=== PATIENT | female | born 1965 | race Caucasian/White ===

== ENCOUNTER 2020-09-23 14:00 | Outpatient (REF) | payer OTHER, SELFPAY ==
[2020-09-23 14:09] LABS: Glucose Urine UA NEG (NEG); Leukocyte Esterase Urine 3+ (NEG); Nitrite Urine POS (NEG); PH 6.5 (5.0-8.0); Specific Gravity - Urine <= 1.005 (1.005-1.025); UACC Culture Trigger YES; Urine Blood TRACE (NEG); Urine Ketones NEG (NEG); Urine Protein NEG (NEG-TRACE)
[2020-09-23 14:21] LABS: Appearance Urine HAZY; Color Urine YELLOW
[2020-09-23 14:22] LABS: Bacteria Urine 1+ /LPF; RBC Urine 0-2 /HPF (0); Squamous Epithelial Cell Urine TRACE /LPF; UACC CULT YES; WBC Urine 30-49 /HPF (0-4)
== END 2020-09-23 14:01 | disposition home or self-care (01) ==
LOC: HO.LNP 14:00
PROVIDERS: Visit Provider Family Medicine
DX: N39.0 Urinary tract infection, site not specified (principal)
CPT/HCPCS: 81001; 87086; 87088; 87186

== ENCOUNTER 2021-04-25 07:00 | Outpatient (REF) | payer OTHER, SELFPAY ==
[2021-04-25 07:24] LABS: MANUAL DIFF FLAG NO
[2021-04-25 08:08] LABS: Basophils Absolute Auto 0.1 X10*3/uL (0.0-0.2); Basophils Percent Auto 0.9 % (0-2); Eosinophils Absolute Auto 0.1 X10*3/uL (0.0-0.4); Eosinophils Percent Auto 1.4 % (0-4); Hematocrit 36.8 % (37.0-47.0); Hemoglobin 12.7 g/dl (12.0-16.0); Imm Gran Abs Auto 0.02 X10*3/uL (0.00-0.03); Imm Gran Pct Auto 0.4 % (0.0-0.4); Lymphocytes Absolute Auto 1.8 X10*3/uL (1.2-4.9); Lymphocytes Percent Auto 32.3 % (20-40); Mean Corpuscular HGB Conc 34.5 g/dl (31.0-35.0); Mean Corpuscular Hemoglobin 31.1 pg (27.0-33.0); Mean Corpuscular Volume 90.2 fL (80.0-98.0); Mean Platelet Volume 9.4 fL (9.4-12.3); Monocytes Absolute Auto 0.5 X10*3/uL (0.1-1.2); Monocytes Percent Auto 9.2 % (2-11); Neutrophils Absolute Auto 3.1 x10*3/uL (2.0-8.3); Neutrophils Percent Auto 55.8 % (45-73); Platelet Count 315 X10*3/uL (160-400); Red Blood Count 4.08 X10*6/uL (4.20-5.50); Red Cell Distribution Width 11.9 % (11.0-16.0); White Blood Count 5.6 X10*3/uL (4.8-10.8)
[2021-04-25 08:37] LABS: Alanine Aminotransferase 37 U/L (0-31); Albumin Level 4.2 g/dL (3.5-5.0); Alkaline Phosphatase 114 U/L (39-117); Anion Gap 11 (12-20); Aspartate Amino Transferase 49 U/L (5-31); Bilirubin Total 0.6 mg/dL (0.0-1.0); Blood Urea Nitrogen 5 mg/dL (9-16); C Reactive Protein 0.57 mg/dL (< or = 0.50); Calcium 9.8 mg/dL (8.4-10.2); Carbon Dioxide 28 mmol/L (22-29); Chloride 98 mmol/L (96-108); Cholesterol 188 mg/dL; Estimated Glomerular Filt Rate > 60; Glucose Fasting 106 mg/dL (60-99); HDL Cholesterol 59 mg/dL; LDL Cholesterol Calculated 108 mg/dl; Potassium 4.2 mmol/L (3.3-5.1); Sodium 133 mmol/L (135-145); Triglycerides 106 mg/dL
[2021-04-25 08:39] LABS: Appearance Urine CLOUDY; Color Urine YELLOW; Glucose Urine UA NEG (NEG); Leukocyte Esterase Urine 1+ (NEG); Nitrite Urine NEG (NEG); UACC Culture Trigger YES; Urine Blood NEG (NEG); Urine Ketones 5 MG/DL (NEG); Urine Protein TRACE MG/DL (NEG-TRACE)
[2021-04-25 08:50] LABS: Erythrocyte Sedimentation Rate 20 MM/HR (0-20)
[2021-04-25 08:56] LABS: Bacteria Urine 2+ /LPF; Mucus Urine TRACE /LPF; RBC Urine 0 /HPF (0); Squamous Epithelial Cell Urine 2+ /LPF
[2021-04-25 09:29] LABS: TSH reflex Free T4 3.41 uIU/mL (0.32-4.0)
== END 2021-04-25 07:01 | disposition home or self-care (01) ==
LOC: HO.LAB 07:00
PROVIDERS: PCP Internal Medicine; Visit Provider Internal Medicine
DX: I10 Essential (primary) hypertension (principal); E55.9 Vitamin D deficiency, unspecified; M25.50 Pain in unspecified joint; E78.00 Pure hypercholesterolemia, unspecified; G43.909 Migraine, unspecified, not intractable, without status migrainosus; J44.9 Chronic obstructive pulmonary disease, unspecified
CPT/HCPCS: 36415; 80053; 80061; 81001; 82306; 84443; 85025; 85652; 86140; 87086

== ENCOUNTER 2021-05-29 15:08 | Outpatient (REF) | payer OTHER, SELFPAY ==
--- NOTE | ~2021-05-29 | MM_ITS ---
EXAMINATION: MM SCREENING DIGITAL BREAST TOMOSYNTHESIS, BILATERAL CLINICAL INFORMATION: Screening. Asymptomatic. The lifetime risk of breast cancer based on the Tyrer-Cuzick Model is 5%. COMPARISON: Mammography: 05/21/2016, 11/24/2013 TECHNIQUE: Digital breast tomosynthesis is performed in both the craniocaudal and mediolateral oblique views along with computer-aided detection (CAD). Synthesized 2D images are generated from the tomosynthesis. FINDINGS: There are scattered areas of fibroglandular density (ACR BI-RADS breast composition Category b). There are no significant masses, abnormal calcifications, or other abnormalities. No architectural abnormality. No significant changes from prior exams. MM/MM tomosynthesis screening BI IMPRESSION: No mammographic evidence of malignancy. ASSESSMENT: BI-RADS 1: Negative RECOMMENDATION: Routine annual mammography screening. This patient's information was entered into a reminder system with a target due date for their next mammogram.
== END 2021-05-29 15:09 | disposition home or self-care (01) ==
LOC: HO.MAMMO 15:08
PROVIDERS: PCP Internal Medicine; Visit Provider Internal Medicine
DX: Z12.31 Encounter for screening mammogram for malignant neoplasm of breast (principal)
CPT/HCPCS: 77063; 77067

== ENCOUNTER 2022-10-18 14:09 | Outpatient (REF) | payer OTHER, MEDICAID, SELFPAY ==
[2022-10-18 14:22] LABS: MANUAL DIFF FLAG NO
[2022-10-18 14:53] LABS: Appearance Urine Clear; Color Urine Yellow; Glucose Urine UA Negative (Negative); Leukocyte Esterase Urine Trace (Negative); Nitrite Urine Negative (Negative); PH 6.5 (5.0-9.0); Specific Gravity - Urine 1.015 (1.005-1.025); UMIC TRIGGER UACC YES; Urine Blood Negative (Negative); Urine Ketones Negative (Negative); Urine Protein Negative (Neg-Trace)
[2022-10-18 14:56] LABS: Bacteria Urine None Seen (None Seen); Hyaline Casts Urine 0-2 /LPF (0-2); RBC Urine 0-2 /HPF (0-2); WBC Urine 0-5 /HPF (0-5)
[2022-10-18 15:07] LABS: Basophils Absolute Auto 0.1 X10*3/uL (0.0-0.2); Basophils Percent Auto 1.4 % (0-2); Eosinophils Absolute Auto 0.2 X10*3/uL (0.0-0.4); Eosinophils Percent Auto 2.9 % (0-4); Hematocrit 39.1 % (37.0-47.0); Hemoglobin 13.2 g/dl (12.0-16.0); Imm Gran Abs Auto 0.01 X10*3/uL (0.00-0.03); Imm Gran Pct Auto 0.2 % (0.0-0.4); Lymphocytes Absolute Auto 1.9 X10*3/uL (1.2-4.9); Lymphocytes Percent Auto 28.2 % (20-40); Mean Corpuscular HGB Conc 33.8 g/dl (31.0-35.0); Mean Corpuscular Hemoglobin 30.8 pg (27.0-33.0); Mean Corpuscular Volume 91.4 fL (80.0-98.0); Mean Platelet Volume 9.2 fL (9.4-12.3); Monocytes Absolute Auto 0.6 X10*3/uL (0.1-1.2); Monocytes Percent Auto 9.5 % (2-11); Neutrophils Absolute Auto 3.8 x10*3/uL (2.0-8.3); Neutrophils Percent Auto 57.8 % (45-73); Platelet Count 364 X10*3/uL (160-400); Red Blood Count 4.28 X10*6/uL (4.20-5.50); Red Cell Distribution Width 11.9 % (11.0-16.0); White Blood Count 6.6 X10*3/uL (4.8-10.8)
[2022-10-18 15:46] LABS: Alanine Aminotransferase 34 U/L (0-31); Albumin Level 4.3 g/dL (3.5-5.0); Alkaline Phosphatase 87 U/L (39-117); Anion Gap 13 (12-20); Aspartate Amino Transferase 35 U/L (5-31); Bilirubin Total 0.3 mg/dL (0.0-1.0); Blood Urea Nitrogen 7 mg/dL (9-16); Calcium 9.8 mg/dL (8.4-10.2); Carbon Dioxide 27 mmol/L (22-29); Chloride 98 mmol/L (96-108); Cholesterol 159 mg/dL; Estimated Glomerular Filt Rate > 60; Glucose Fasting 95 mg/dL (60-99); HDL Cholesterol 79 mg/dL; LDL Cholesterol Calculated 62 mg/dl; Potassium 3.9 mmol/L (3.3-5.1); Sodium 134 mmol/L (135-145); Total Protein 7.4 g/dL (6.5-8.0); Triglycerides 90 mg/dL
[2022-10-18 16:01] LABS: TSH reflex Free T4 4.77 uIU/mL (0.32-4.0)
[2022-10-18 16:54] LABS: Free T4 (Free Thyroxine) 0.74 ng/dL (0.71-1.85)
== END 2022-10-18 14:10 | disposition home or self-care (01) ==
LOC: HO.LAB 14:09
PROVIDERS: PCP Internal Medicine; Visit Provider Internal Medicine
DX: E78.00 Pure hypercholesterolemia, unspecified (principal); I10 Essential (primary) hypertension; E55.9 Vitamin D deficiency, unspecified; R30.0 Dysuria
CPT/HCPCS: 36415; 80053; 80061; 81001; 82306; 84439; 84443; 85025

== ENCOUNTER 2022-10-22 16:15 | Outpatient (AMB) | payer OTHER, MEDICAID, SELFPAY ==
[2022-10-22 16:19] VITALS: BP 116/80; PULSE 65; O2SAT 98; BMI 24.4
--- NOTE | 2022-10-22 16:19 | A.OFFPC_ITS ---
Vital Signs 10/22/22 16:19 Height 5 ft 2 in Weight 133 lb 8 oz BMI 24.4 BP 116/80 Blood Pressure Location Lt brachial Position Sitting Pulse 65 Pulse Source Pulse Oximeter Pulse Oximetry (%) 98 Oxygen Delivery Method Room Air Intake Visit Reasons: annual PE Parts Facilitator Required: No Accompanied by: Self / Same As Patient Allergies SANGITA Inhibitors [SANGITA INHIBITORS] Allergy (Unknown, Verified 10/22/22 16:47) COUGH Ceftin Allergy (Unknown, Verified 10/22/22 16:47) unknown Sulfa (Sulfonamide Antibiotics) Allergy (Unknown, Verified 10/22/22 16:47) rash atorvastatin [Lipitor] Adverse Reaction (Unknown, Verified 10/22/22 16:47) elevated liver enzymes Medication List - Last Reconciled 10/22/22 by Zeb Colorado MD albuterol sulfate 90 mcg/actuation 2 puffs inhalation Q6H PRN amlodipine 2.5 mg PO DAILY bhcyuojyff-pgllacbnedjog-xezz 50-325-40 mg 1 tab PO .2-3 TIMES A DAY PRN 30 days cetirizine 10 mg PO DAILY fluticasone furoate-vilanterol 100-25 mcg/dose 1 inh inhalation DAILY hydrochlorothiazide 12.5 mg PO DAILY 90 days losartan 100 mg PO DAILY 90 days montelukast 10 mg PO DAILY nadolol 20 mg PO BEDTIME 90 days nitrofurantoin macrocrystal 100 mg PO Q12H 5 days omeprazole 40 mg PO DAILY pregabalin 75 mg PO BID rosuvastatin 5 mg PO DAILY 90 days sumatriptan succinate 50 mg PO Q2-4H PRN 30 days trazodone 50 mg PO BEDTIME PRN 30 days umeclidinium 62.5 mcg/actuation 1 inh PO DAILY venlafaxine ER 75 mg PO DAILY 90 days Tobacco use date assessed: 10/22/22 Dental Screening Dental Screen Date: 10/22/22 Did you have a dental visit in the last 12 months?: No Did you have a dental problem in the last 6 months where you did not have access to dental care?: No Was dental information given to patient?: Patient has dentist HPI annual PE HPI Details Patient comes in today for her annual physical examination - was last seen by me almost 3 years ago in January 2020 States that she has been experiencing increasingly frequent headaches (migraine) for the past couple of months and would like to get a referral to see neurology for her headaches States that she feels okay otherwise She denies any dizziness Denies any chest pains, no shortness of breath No nausea/ vomiting, no abdominal pain No change in bowel habits noted Denies any acute urinary symptoms Had her follow-up labs done a few days ago - to discuss her results Patient's colonoscopy was last done at [facility] back in 2014; was due for repeat colonoscopy in 5 years (2019) Her mammogram was last done on 05/29/2021 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 Harrell - (+) ASCUS on her pap smear back then Has never had a BMD done in the past [facility] Medical History (Updated 10/23/22 @ 05:38 by Zeb Colorado MD) Allergic rhinitis Walker's esophagus without dysplasia Benign essential hypertension COPD (chronic obstructive pulmonary disease) Depression GERD without esophagitis Insomnia Migraine Overweight (BMI 25.0-29.9) Polyarthralgia Pure hypercholesterolemia Surgical History H/O tubal ligation Hx of dilation and curettage Family History Mother Hypertension Esophageal cancer Maternal Grandfather No problems noted. Father No problems noted. Other Mental health problem Substance abuse Social History (Updated 10/23/22 @ 05:13 by Zeb Colorado MD) Housing: House Alcohol intake: current Alcohol intake frequency: 0-2 drinks per day Alcohol type: wine Patient Tobacco Use Status: Former Tobacco user e-Cigarette/Vaping Use: Never Used Second Hand Smoke Exposure: Yes service: No Current occupational status: unemployed Cognitive needs: No Hearing needs: No Vision needs: No Questionnaire PHQ-9 Over the last 2 weeks, how often have you been bothered by any of the following problems? 1. Little interest or pleasure in doing things: not at all 2. Feeling down, depressed, or hopeless: not at all 3. Trouble falling or staying asleep, or sleeping too much: not at all 4. Feeling tired or having little energy: not at all 5. Poor appetite or overeating: not at all 6. Feeling bad about yourself - or that you are a failure or have let yourself or your family down: not at all 7. Trouble concentrating on things, such as reading the newspaper or watching television: not at all 8. Moving or speaking so slowly that other people could have noticed. Or the opposite - being so fidgety or restless that you have been moving around a lot more than usual: not at all 9. Thoughts that you would be better off or of hurting yourself in some way: not at all Total score: 0 Depression Screening Interpretation: Negative 54625 - PHQ-9 Billing: Yes Source: Developed by Drs. Santos Florentino, Tammy Santos, Jigar Giraldo and colleagues, with an educational chacho from [employer]. Thrive Questionnaire Date Thrive assessed: 10/22/22 I am a: Patient What is your living situation today?: I have a steady place to live Within the past 12 months, did the food you bought not last and you didn't have the money to get more?: Never true Within the past 12 months, did you worry whether your food would run out before you got money to buy more?: Never true Do you have trouble paying for medicines?: No Do you have trouble getting transportation to medical appointments?: No Do you have trouble paying your heating and electricity bill?: No Do you have trouble taking care of your child, family member or friend?: No Do you have trouble with day-to-day activities such as bathing, preparing meals, shopping, managing finances, etc.?: No Are you currently unemployed and looking for a job?: No Are you interested in more education?: No Please select the resources that you would like help with: None Currently or been in a relationship where the following occur: no concerns reported AUDIT C Alcohol Use Questionnaire (AUDIT-C) 1. How often do you have a drink containing alcohol?: 4 or more times a week 2. How many drinks containing alcohol do you have on a typical day when you are drinking?: 1 or 2 3. How often do you have six or more drinks on one occasion?: Never Total Score: 4 Score Reviewed/Action Taken: Yes CHANCE-7 AMB Questionnaire CHANCE-7 Date CHANCE - 7 assessed: 10/22/22 Feeling nervous, anxious, or on edge: 0 = Not at all Not being able to stop or control worryin = Not at all Worrying too much about different things: 0 = Not at all Trouble relaxin = Not at all Being so restless that it is hard to sit still: 0 = Not at all Becoming easily annoyed or irritable: 0 = Not at all Feeling afraid as if something awful might happen: 0 = Not at all Total CHANCE-7 score (0-4 normal; 5-9 mild; 10-14 moderate; 15-21 severe): 0 Source: Developed by Drs. Santos Florentino, Tammy Santos, Jigar Giraldo and colleagues, with an educational chacho from [employer]. Review of Systems Const Denies chills, Denies fatigue, Denies fever(s), Reports headache(s) (occurring more frequently over the past couple of months) and Denies malaise Eyes Denies blurry vision, Denies change in vision, Denies irritation and Denies itchy eyes ENT Denies dysphagia, Denies dizziness, Denies otalgia, Reports headache(s) (occurring more frequently over the past couple of months), Denies nasal congestion, Denies neck pain, Denies odynophagia, Denies sinus pain and Denies sore throat Card Denies chest pain, Denies rapid heart rate, Denies irregular heart rhythm, Denies palpitations and Denies dyspnea Resp Denies chest congestion, Denies cough, Denies dyspnea and Denies wheezing GI Denies abdominal pain, Denies bloating, Denies constipation, Denies dysphagia, Denies heartburn, Denies diarrhea, Denies nausea, Denies odynophagia and Denies vomiting Denies hematuria, Denies urinary frequency, Denies dysuria, Denies urinary incontinence and Denies urinary urgency Musc Denies back pain, Denies arthralgias, Denies joint swelling, Denies muscle weakness and Denies neck pain Skin/Breast Denies breast pain, Denies breast mass, Denies change in pigmentation, Denies lesions, Denies rash and Denies unusual bruising Neuro Denies dizziness, Reports headache(s) (occurring more frequently over the past couple of months) and Denies paresthesias Psych Denies anxiety and Denies depression Endo Denies fatigue and Denies palpitations Anil/Lymph Reports easy bruising Aller/Immun Denies itchy eyes and Denies wheezing Physical exam (Primary Care) Vital Signs: Last Vital Signs Pulse 65 10/22/22 16:19 BP 116/80 10/22/22 16:19 Pulse Ox 98 10/22/22 16:19 Oxygen Delivery Method Room Air 10/22/22 16:19 BMI result Body Mass Index 24.4 Tobacco/Smoking Status: Tobacco use Status Tobacco use date assessed 10/22/22 10/22/22 16:25 Patient Tobacco Use Status Former Tobacco user 10/22/22 16:25 e-Cigarette/Vaping Use Never Used 10/22/22 16:25 PHQ-9: PHQ-9 Score PHQ-9: Total score 0 10/22/22 16:52 Depression Screening Interpretation: Negative Thrive Assessment: Date of Thrive Assessment Date Thrive assessed 10/22/22 10/22/22 16:25 Currently or been in a relationship where the following occur: no concerns reported Const General: no acute distress, alert and awake Orientation/consciousness: patient oriented x3 HENMT Head: Yes normocephalic and Yes atraumatic Ears: external ears normal, TM's normal bilaterally and EAC's normal General nose exam: No nasal discharge present Face and sinus: Yes normal facial exam and Yes sinuses nontender Teeth and gingiva: dentition normal Throat: Yes posterior oropharynx normal and Yes tonsils normal (no TP congestion) Eyes Eyelids: Yes eyelids normal Conjunctivae: conjunctivae normal Pupils: Equal, round and reactive pupils present EOM: EOMs intact bilaterally Neck Neck: Yes no lymphadenopathy and Yes supple Thyroid: Thyroid normal Resp Auscultation: clear to auscultation bilaterally, no rales and no wheezes Cardio Rate: regular rate Rhythm: regular rhythm Heart sounds: no murmurs GI Palpation (GI): Soft to palpation, nontender and No hepatosplenomegaly present Auscultation: normal bowel sounds General: Yes no CVA tenderness Back/Spine/Pelvis Back: no CVA tenderness Thoracic/Lumbar Spine: thoracic and lumbar spine normal to inspection Skin General skin exam: ecchymosis (few scattered bruising over both arms) Rashes: no rashes Neuro General: patient oriented x3, moves all extremities, no focal motor deficits and CN's II-XI intact bilaterally Cranial nerves: Yes Equal, round and reactive pupils present Cognition (Neuro): normal cognition Gait exam (Neuro): Normal gait present Extrem General: Yes no clubbing, cyanosis or edema Results Reviewed Results Reviewed: Laboratory Tests 10/18/22 10/18/22 10/18/22 14:20 14:21 14:21 WBC 6.6 Hgb 13.2 Hct 39.1 Plt Count 364 Sodium 134 L Potassium 3.9 Creatinine 0.70 Estimated GFR > 60 Fasting Glucose 95 Calcium 9.8 AST 35 H ALT 34 H Triglycerides 90 Cholesterol 159 LDL Cholesterol, Calc 62 HDL Cholesterol 79 25-OH Vitamin D Total 58.0 TSH 4.77 H Free T4 0.74 Ur Specific Sigurd 1.015 Urine Protein Negative Urine Glucose (UA) Negative Urine Blood Negative Assessment and Plan Assessment & Plan (1) Annual physical exam: Code(s): Z00.00 - Encounter for general adult medical examination without abnormal findings Plan: Results of patient's labs done a few days ago reviewed and discussed with patient (2) Pure hypercholesterolemia: Code(s): E78.00 - Pure hypercholesterolemia, unspecified Plan: Reinforced low cholesterol diet Continue Rosuvastatin 5 mg QD Will recheck her labs and fasting lipids in 4 months for follow up (3) Benign essential hypertension: Code(s): I10 - Essential (primary) hypertension Plan: Reinforced low sodium diet - goal is systolic BP of 120 to 130 mm or less Continue Amlodipine 2.5 mg QD, HCTZ 12.5 mg QD and Losartan 100 mg QD (4) COPD (chronic obstructive pulmonary disease): Code(s): J44.9 - Chronic obstructive pulmonary disease, unspecified Qualifiers: COPD type: unspecified COPD Qualified Code(s): J44.9 - Chronic obstructive pulmonary disease, unspecified Plan: Stable with no acute flare ups recently Continue Breo Ellipta 100-25 mcg 1 inhalation QD , Incruse Ellipta 62.5 mcg 1 inhalation QD, Montelukast 10 mg QD and Albuterol HFA 2 inhalations every 6 hours PRN (5) Migraine: Code(s): G43.909 - Migraine, unspecified, not intractable, without status migrainosus Qualifiers: Migraine type: unspecified Status migrainosus presence: without status migrainosus Intractability: not intractable Qualified Code(s): G43.909 - Migraine, unspecified, not intractable, without status migrainosus Plan: Patient reports experiencing increasingly frequent headaches lately Continue Fioricet 50-325-40 mg TID PRN, Sumatriptan 50 mg PRN as instructed and Nadolol 20 mg Q HS for HEBERT prophylaxis Per request, will refer her to neurology for further evaluation and management (6) Polyarthralgia: Code(s): M25.50 - Pain in unspecified joint Plan: Continue Lyrica 75 mg BID - patient has been mostly taking this QD only as she feels very sedated when taking it BID Follow up [facility] as scheduled (7) Allergic rhinitis: Code(s): J30.9 - Allergic rhinitis, unspecified Qualifiers: Allergic rhinitis trigger: unspecified Allergic rhinitis seasonality: unspecified Qualified Code(s): J30.9 - Allergic rhinitis, unspecified Plan: Continue Cetirizine 10 mg QD PRN and Montelukast 10 mg Q PM (8) GERD without esophagitis: Code(s): K21.9 - Gastro-esophageal reflux disease without esophagitis Plan: Dietary restrictions reinforced Continue Omeprazole 40 mg QD (9) Walker's esophagus without dysplasia: Code(s): K22.70 - Walker's esophagus without dysplasia Plan: Continue PPI Tx Was supposed to follow up with GI regularly for continuing surveillance but she has not seen GI since her last EGD by Dr. Cardoza back in 2013 Will refer her back to GI for follow up and consideration for repeat EGD (10) Elevated LFTs: Code(s): R79.89 - Other specified abnormal findings of blood chemistry Plan: Patient is cautioned that her LFTs have remained slightly elevated on her recent labs, similar to her LFTs from a few years ago Advised that this is most likely due to her regular alcohol intake and advised to try cutting back on this Discussed possibility of sending her for abdominal US for further evaluation if her elevated LFTs persists or progresses Will continue to monitor her LFTs and labs regularly (11) Hyponatremia: Code(s): E87.1 - Hypo-osmolality and hyponatremia Plan: Mild; serum sodium was most recently at 134 Discussed that this is also most likely related to her frequent/regular alcohol intake as she appears to be clinically euvolemic Will continue to monitor her serum sodium level regularly as well (12) Multiple ecchymoses of both upper arms: Code(s): R58 - Hemorrhage, not elsewhere classified Plan: Patient's recent CBC is completely normal and she reports NO Hx of bleeding tendencies or prolonged bleeding when injured Advised that these are most likely also related to her frequent alcohol intake Will continue to monitor this for now but will check her PT/INR and B12 level in 4 months together with all of her other routine labs for further evaluation (13) Insomnia: Code(s): G47.00 - Insomnia, unspecified Qualifiers: Insomnia type: unspecified Qualified Code(s): G47.00 - Insomnia, unspecified Plan: Sleep hygiene reinforced Continue Trazodone 50 mg Q HS PRN (14) Depression: Code(s): F32.9 - Major depressive disorder, single episode, unspecified Qualifiers: Depression Type: major depressive disorder Major depression recurrence: recurrent Active/Remission status: currently active Major depression episode severity: unspecified Qualified Code(s): F33.9 - Major depressive disorder, recurrent, unspecified Plan: Continue Venlafaxine 75 mg QD Follow up with psychiatry as scheduled (15) Colon cancer screening: Code(s): Z12.11 - Encounter for screening for malignant neoplasm of colon Plan: Colonoscopy was last done at [facility] in 2014 and was due for repeat in 5 years (2019) Will refer patient to [facility] [place] [facility]enterology for repeat colonoscopy (16) Breast cancer screening by mammogram: Code(s): Z12.31 - Encounter for screening mammogram for malignant neoplasm of breast Plan: Screening mammogram was last done in 05/2021 Will send for repeat mammogram (17) Cervical cancer screening: Code(s): Z12.4 - Encounter for screening for malignant neoplasm of cervix Plan: 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 Harrell in 2013 - (+) ASCUS on her last pap smear Will refer her back to Dr. 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 Panel Fast 4 Months E78.00 - Pure hypercholesterolemia, unspecified Lipid Panel 4 Months E78.00 - Pure hypercholesterolemia, unspecified TSH reflex Free T4 4 Months E78.00 - Pure hypercholesterolemia, unspecified Vitamin D 25-OH Total 4 Months E55.9 - Vitamin D deficiency, unspecified Complete Blood Count Auto Diff 4 Months I10 - Essential (primary) hypertension UA CC w/rflx Micro + Cult 4 Months R30.0 - Dysuria Prothrombin Time INR 4 Months R58 - Hemorrhage, not elsewhere classified Partial Thromboplastin Time 4 Months R58 - Hemorrhage, not elsewhere classified Referrals Neurology Referral G43.909 - Migraine, unspecified, not intractable, without status migrainosus Gastroenterology Referral K22.70 - Walker's esophagus without dysplasia, Z12.11 - Encounter for screening for malignant neoplasm of colon INWEAVER Referral Z12.4 - Encounter for screening for malignant neoplasm of cervix Coding Level of Care Code Est Pt Prev Care 40-64y([id number]) Diagnoses Annual physical exam Z00.00 Pure hypercholesterolemia E78.00 Benign essential hypertension I10 COPD (chronic obstructive pulmonary disease) J44.9 COPD type: unspecified COPD Migraine G43.909 Migraine type: unspecified Status migrainosus presence: without status migrainosus Intractability: not intractable Polyarthralgia M25.50 Allergic rhinitis J30.9 Allergic rhinitis trigger: unspecified Allergic rhinitis seasonality: unspecified GERD without esophagitis K21.9 Walker's esophagus without dysplasia K22.70 Elevated LFTs R79.89 Hyponatremia E87.1 Multiple ecchymoses of both upper arms R58 Insomnia G47.00 Insomnia type: unspecified Depression F33.9 Depression Type: major depressive disorder Major depression recurrence: recurrent Active/Remission status: currently active Major depression episode severity: unspecified Colon cancer screening Z12.11 Breast cancer screening by mammogram Z12.31 Cervical cancer screening Z12.4 Osteoporosis screening Z13.820
== END 2022-10-22 17:18 | disposition home or self-care (01) ==
LOC: HO.HMGH 16:15
PROVIDERS: PCP Internal Medicine; Visit Provider Internal Medicine
DX: Z00.00 Encounter for general adult medical examination without abnormal findings (principal); I10 Essential (primary) hypertension; G43.909 Migraine, unspecified, not intractable, without status migrainosus; K21.9 Gastro-esophageal reflux disease without esophagitis; K22.70 Barrett's esophagus without dysplasia; J44.9 Chronic obstructive pulmonary disease, unspecified; E78.00 Pure hypercholesterolemia, unspecified; M25.50 Pain in unspecified joint; J30.9 Allergic rhinitis, unspecified; R79.89 Other specified abnormal findings of blood chemistry; F33.9 Major depressive disorder, recurrent, unspecified; E87.1 Hypo-osmolality and hyponatremia
CPT/HCPCS: 99396

== ENCOUNTER 2022-12-04 14:25 | Outpatient (REF) | payer OTHER, SELFPAY ==
--- NOTE | ~2022-12-04 | MM_ITS ---
EXAMINATION: BONE DENSITOMETRY CLINICAL INDICATION: Asymptomatic menopausal state. COMPARISON: This is the patient's baseline examination. TECHNIQUE: Using a [employer] DXA System (software version: 13.1) manufactured by [employer], dual-energy x-ray absorptiometry was performed of the lumbar spine and left hip. The images are of good technical quality. Summary results are attached. FINDINGS: LEFT FEMUR, NECK: BMD 0.814 g/cm2, Z-score -0.3, T-score -1.6, osteopenia. LEFT FEMUR, TOTAL: BMD 0.849 g/cm2, Z-score -0.3, T-score -1.3, osteopenia. AP SPINE L1-L4: BMD 1.050 g/cm2, Z-score 0.2, T-score -1.1, osteopenia. IDENTIFIED RISK FACTORS: Menopause, thiazide. HISTORY OF FRACTURE: None listed. MEDICATIONS: Vitamin D. MM/XR DEXA axial skeleton IMPRESSION: 1. DIAGNOSIS: Osteopenia based on the lowest T-score value of -1.6 in the femoral neck applying World Health Organization criteria. 2. 10-YEAR FRACTURE RISK PREDICTION, FRAX: Major osteoporotic fracture (clinical spine, forearm, hip or shoulder) 8.1%. Hip fracture 0.7%. 3. Treatment Recommendations: NOF guidelines recommend consideration for treatment in postmenopausal women and men age 50 and older presenting with the following: -A hip or vertebral (clinical or morphometric) fracture. -T-score less than or equal to -2.5 at the femoral neck or spine after appropriate evaluation to exclude secondary causes. -Low bone mass at the hip or spine and a 10-year fracture probability by FRAX of greater than or equal to 3% for hip fracture or greater than or equal to 20% for major osteoporotic fracture based on the [place] adapted WHO algorithm. 4. Other Recommendations: All treatment decisions require clinical judgment and consideration of individual patient factors, including patient preferences, comorbidities, previous drug use, risk factors not captured in the FRAX model (e.g. frailty, falls, vitamin D deficiency, increased bone turnover, interval significant decline in bone density) and possible under or overestimation of fracture risk by FRAX. Additional medical evaluation for secondary cause of low bone mineral density may be appropriate. FUTURE SCAN RECOMMENDATION: People with diagnosed cases of osteoporosis or at high risk for fracture should have regular bone mineral density tests. For patients eligible for Medicare, routine testing is allowed once every 2 years. The testing frequency can be increased to one year for patients who have rapidly progressing disease, those who are receiving or discontinuing medical therapy to restore bone mass, or have additional risk factors.
== END 2022-12-04 14:26 | disposition home or self-care (01) ==
LOC: HO.MAMMO 14:25
PROVIDERS: PCP Internal Medicine; Visit Provider Internal Medicine
DX: Z12.31 Encounter for screening mammogram for malignant neoplasm of breast (principal); Z13.820 Encounter for screening for osteoporosis; Z78.0 Asymptomatic menopausal state
CPT/HCPCS: 77063; 77067; 77080

== ENCOUNTER → 2022-12-04 14:30 | Outpatient (BNV) | payer OTHER, SELFPAY | PROVIDERS: PCP Internal Medicine; Visit Provider Radiology Diagnostic Radiology | DX: Z12.31 Encounter for screening mammogram for malignant neoplasm of breast (principal) | CPT/HCPCS: 77063; 77067 ==

== ENCOUNTER 2022-12-31 13:13 | Outpatient (AMB) | payer OTHER, SELFPAY ==
--- NOTE | 2022-12-31 13:23 | A.OFFVIS_ITS ---
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 No complaints. 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 Father No problems noted. Other Mental health problem Substance abuse Social History Housing: House Alcohol intake: current Alcohol intake frequency: 0-2 drinks per day Alcohol type: wine Patient Tobacco Use Status: Former Tobacco user e-Cigarette/Vaping Use: Never Used Second Hand Smoke Exposure: Yes service: No Current occupational status: unemployed Cognitive needs: No Hearing needs: No Vision needs: No Female Reproductive History Menstrual Age of Menarche: 14 control method: permanent sterilization Total pregnancies: 6 Full term: 3 Number of Living Children: 3 Ab spontaneous: 3 Date of last pap smear: 11/20/13 (ASCUS) History of abnormal pap smear: Yes (2006 LGSIL) Date of Mammogram: 12/04/22 Date of last Bone Density Screenin12/04/22 Review of Systems Const All systems reviewed & are unremarkable except as noted in HPI and below Card Reports as per HPI Resp Reports as per HPI GI Reports as per HPI and Reports no additional complaints Reports as per HPI Physical Exam Vital Signs: Last Vital Signs BP 140/78 H 12/31/22 13:25 BMI result Body Mass Index 24.9 Const General: cooperative, healthy appearing and comfortable Chest Chest palpation & inspection: normal inspection of the chest and normal palpation of entire chest wall Breast/axilla inspection: normal inspection of the breasts and normal inspection of the axillae Breast/axilla palpation: normal palpation of the breasts, normal palpation of the axillae and no axillary lymphadenopathy Resp Effort & Inspection: normal respiratory effort Auscultation: clear to auscultation bilaterally Percussion: percussion normal Cardio Palpation: normal PMI Rate: regular rate Rhythm: regular rhythm Heart sounds: no murmurs and no rubs Peripheral pulses: Peripheral pulses 2+ throughout GI Inspection: Yes normal to inspection Palpation (GI): Soft to palpation, nontender, no guarding, not rigid and No hepatosplenomegaly present Percussion: Yes normal to percussion Auscultation: normal bowel sounds Rectal Exam - Female: deferred General: Yes bladder normal to palpation External Female Exam: No lesion Speculum Exam - Vagina: normal appearance of the vagina, normal palpation, normal vaginal discharge and not erythematous Speculum Exam - Cervix: normal appearance of the cervix and normal palpation Bimanual exam- vagina & uterus: normal bimanual exam, normal palpation, uterine size normal, bladder normal to palpation, consistency normal and normal palpation Bimanual Exam- Adnexa, other: normal adnexae, no masses and no tenderness Assessment & Plan Assessment & Plan (1) Well woman exam: Code(s): Z01.419 - Encounter for gynecological examination (general) (routine) without abnormal findings Plan: Cotesting done. Instructions given the patient to schedule next screening Mammogram in 12/10. Patient has an appointment scheduled with GI for screening colonoscopy in 2 days Counseled the patient about the recommended dietary allowance of 1000 mg of Calcium & 600 IU of vitamin D. The patient was instructed to perform monthly self-breast exams and to schedule an annual exam in a year; All questions answered and the patient verbalized understanding. Instructed the patient to schedule annual exam in a year Coding Level of Care Code New Pt Prev Care 40-64y(44229) Diagnoses Well woman exam Z01.419
[2022-12-31 13:25] VITALS: BP 140/78; BMI 24.9
== END 2022-12-31 13:55 | disposition home or self-care (01) ==
PROVIDERS: PCP Internal Medicine; Visit Provider Obstetrics & Gynecology
DX: Z01.419 Encounter for gynecological examination (general) (routine) without abnormal findings (principal)
CPT/HCPCS: 99386

== ENCOUNTER 2022-12-31 13:13 | Outpatient (REF) | payer OTHER, SELFPAY ==
[2023-01-03 04:18] LABS: HPV mRNA E6/E7 rflx Not Detected (Not Detected)
== END 2022-12-31 13:14 | disposition home or self-care (01) ==
LOC: HO.LNP 13:13
PROVIDERS: PCP Internal Medicine; Visit Provider Obstetrics & Gynecology
DX: Z01.419 Encounter for gynecological examination (general) (routine) without abnormal findings (principal); Z11.51 Encounter for screening for human papillomavirus (HPV)
CPT/HCPCS: 87624; 88142

== ENCOUNTER 2023-01-25 11:27 | Outpatient (AMB) | payer OTHER, SELFPAY ==
[2023-01-25 11:36] VITALS: BP 122/90; PULSE 79; O2SAT 93; BMI 24.2
--- NOTE | 2023-01-25 11:36 | MHC.PC.OV ---
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 Required: No Accompanied by: Self / Same As Patient Allergies SANGITA Inhibitors [SANGITA INHIBITORS] Allergy (Unknown, Verified 01/25/23 11:56) COUGH Ceftin Allergy (Unknown, Verified 01/25/23 11:56) unknown Sulfa (Sulfonamide Antibiotics) Allergy (Unknown, Verified 01/25/23 11:56) rash atorvastatin [Lipitor] Adverse Reaction (Unknown, Verified 01/25/23 11:56) elevated liver enzymes Medication List - Last Reconciled 01/25/23 by Zeb Colorado MD albuterol sulfate 90 mcg/actuation 2 puffs inhalation Q6H PRN amlodipine 2.5 mg PO DAILY apdmzluxln-nwgvevsteoqac-[id number] 50-325-40 mg 1 tab PO .2-3 TIMES A DAY PRN 30 days cetirizine 10 mg PO DAILY chlorhexidine gluconate 0.12% PO hydrochlorothiazide 12.5 mg PO DAILY 90 days losartan 100 mg PO DAILY 90 days montelukast 10 mg PO DAILY nadolol 20 mg PO BEDTIME 90 days omeprazole 40 mg PO DAILY pregabalin 75 mg PO BID rosuvastatin 5 mg PO DAILY 90 days sumatriptan succinate 50 mg PO Q2-4H PRN 30 days trazodone 50 mg PO BEDTIME PRN 30 days venlafaxine ER 75 mg PO DAILY 90 days Tobacco use date assessed: 01/25/23 Dental Screening Dental Screen Date: 01/25/23 Did you have a dental visit in the last 12 months?: No Did you have a dental problem in the last 6 months where you did not have access to dental care?: No Was dental information given to patient?: No HPI SOB, respiratory issues HPI Details Patient comes in today complaining of increasing cough and congestion and recurrent chest tightness with on and off wheezing for the past couple of weeks now Notes that her oxygen saturation dropped down to around 91% yesterday Is currently still experiencing frequent chest tightness and congestion and has a recurrent cough - coughs up thick whitish phlegm at times Relates (+) fatigue but denies any fever or sore throat Still has on and off headaches but states that these are occurring less often than they used to; denies any dizziness She denies any chest pains No nausea/vomiting, no abdominal pain No change in bowel habits noted Adds that she has been experiencing some burning sensation and mild pain on urination since this morning - is concerned that she may be coming down with a urinary tract infection as well PFSH Medical History Allergic rhinitis Polyarthralgia Overweight (BMI 25.0-29.9) Depression 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 Father No problems noted. Other Mental health problem Substance abuse Social History Housing: House Alcohol intake: current Alcohol intake frequency: 0-2 drinks per day Alcohol type: wine Patient Tobacco Use Status: Former Tobacco user e-Cigarette/Vaping Use: Never Used Second Hand Smoke Exposure: Yes service: No Current occupational status: unemployed Cognitive needs: No Hearing needs: No Vision needs: No Female Reproductive History Menstrual Age of Menarche: 14 Questionnaire PHQ-9 Over the last 2 weeks, how often have you been bothered by any of the following problems? 1. Little interest or pleasure in doing things: not at all 2. Feeling down, depressed, or hopeless: not at all 3. Trouble falling or staying asleep, or sleeping too much: not at all 4. Feeling tired or having little energy: not at all 5. Poor appetite or overeating: not at all 6. Feeling bad about yourself - or that you are a failure or have let yourself or your family down: not at all 7. Trouble concentrating on things, such as reading the newspaper or watching television: not at all 8. Moving or speaking so slowly that other people could have noticed. Or the opposite - being so fidgety or restless that you have been moving around a lot more than usual: not at all 9. Thoughts that you would be better off or of hurting yourself in some way: not at all Total score: 0 Depression Screening Interpretation: Negative Depression Screening Done: Yes 05991 - PHQ-9 Billing: Yes Source: Developed by Drs. Santos Florentino, Tammy Santos, Jigar Giraldo and colleagues, with an educational chacho from [employer]. Thrive Questionnaire Date Thrive assessed: 01/25/23 I am a: Patient What is your living situation today?: I have a steady place to live Within the past 12 months, did the food you bought not last and you didn't have the money to get more?: Never true Within the past 12 months, did you worry whether your food would run out before you got money to buy more?: Never true Do you have trouble paying for medicines?: No Do you have trouble getting transportation to medical appointments?: No Do you have trouble paying your heating and electricity bill?: No Do you have trouble taking care of your child, family member or friend?: No Do you have trouble with day-to-day activities such as bathing, preparing meals, shopping, managing finances, etc.?: No Are you currently unemployed and looking for a job?: No Are you interested in more education?: No Please select the resources that you would like help with: None Currently or been in a relationship where the following occur: no concerns reported AUDIT C Alcohol Use Questionnaire (AUDIT-C) 1. How often do you have a drink containing alcohol?: 4 or more times a week 2. How many drinks containing alcohol do you have on a typical day when you are drinking?: 1 or 2 3. How often do you have six or more drinks on one occasion?: Never Total Score: 4 Score Reviewed/Action Taken: Yes CHANCE-7 AMB Questionnaire CHANCE-7 Date CHANCE - 7 assessed: 01/25/23 Feeling nervous, anxious, or on edge: 0 = Not at all Not being able to stop or control worryin = Not at all Worrying too much about different things: 0 = Not at all Trouble relaxin = Not at all Being so restless that it is hard to sit still: 0 = Not at all Becoming easily annoyed or irritable: 0 = Not at all Feeling afraid as if something awful might happen: 0 = Not at all Total CHANCE-7 score (0-4 normal; 5-9 mild; 10-14 moderate; 15-21 severe): 0 Source: Developed by Drs. Santos Florentino, Tammy Santos, Jigar Giraldo and colleagues, with an educational chacho from [employer]. Review of Systems Const Denies chills, Reports fatigue, Denies fever(s) and Reports headache(s) (on and off) ENT Denies dysphagia, Denies dizziness, Denies otalgia, Reports headache(s) (on and off), Denies neck pain, Denies odynophagia and Denies sore throat Card Denies chest pain, Denies rapid heart rate, Denies irregular heart rhythm, Denies palpitations and Reports dyspnea Resp Reports chest congestion (chest feels tight often), Reports cough (recurrent - coughs up thick whitish phlegm), Reports dyspnea and Reports wheezing (occasionally) GI Denies abdominal pain, Denies constipation, Denies dysphagia, Denies heartburn, Denies diarrhea, Denies nausea, Denies odynophagia and Denies vomiting Denies hematuria, Denies urinary frequency, Reports dysuria (mild), Denies urinary incontinence and Denies urinary urgency Musc Denies back pain, Denies arthralgias, Denies joint swelling, Denies muscle weakness and Denies neck pain Skin/Breast Denies rash Neuro Denies dizziness, Reports headache(s) (on and off) and Denies paresthesias Psych Denies anxiety and Denies depression Endo Reports fatigue and Denies palpitations Aller/Immun Reports wheezing (occasionally) Physical exam (Primary Care) Vital Signs: Last Vital Signs Pulse 79 01/25/23 11:36 BP 122/90 H 01/25/23 11:36 Pulse Ox 93 01/25/23 11:36 Oxygen Delivery Method Room Air 01/25/23 11:36 BMI result Body Mass Index 24.2 Tobacco/Smoking Status: Tobacco use Status Tobacco use date assessed 01/25/23 01/25/23 11:41 Patient Tobacco Use Status Former Tobacco user 01/25/23 11:41 e-Cigarette/Vaping Use Never Used 01/25/23 11:41 PHQ-9: PHQ-9 Score PHQ-9: Total score 0 01/25/23 12:00 Depression Screening Interpretation: Negative Thrive Assessment: Date of Thrive Assessment Date Thrive assessed 01/25/23 01/25/23 11:41 Currently or been in a relationship where the following occur: no concerns reported Const General: no acute distress, alert and tired appearing HENMT Ears: TM's normal bilaterally and EAC's normal Throat: Yes posterior oropharynx normal and Yes tonsils normal (no TP congestion) Neck Neck: Yes no lymphadenopathy and Yes supple Thyroid: Thyroid normal Resp Auscultation: no crackles, no rales, rhonchi (scattered) throughout, wheezes (scattered) expiratory wheezes and diminished lung sounds bilateral Cardio Rate: regular rate Rhythm: regular rhythm Heart sounds: no murmurs GI Palpation (GI): Soft to palpation and nontender Auscultation: normal bowel sounds Skin Rashes: no rashes Extrem General: Yes no clubbing, cyanosis or edema Assessment and Plan Assessment & Plan (1) COPD exacerbation: Code(s): J44.1 - Chronic obstructive pulmonary disease with (acute) exacerbation Plan: Will send patient for chest x-rays MANUEL for further evaluation Will start her on oral Prednisone taper as well as back on her inhalers, including Trelegy 100-62.5-25 mcg 1 inhalation QD and Ventolin HFA 2 inhalations Q 6 hours PRN or her updraft/nebulization Tx with Albuterol nebulizer solution Q 6 hours PRN when accessible Will refer her as well to pulmonary at [facility] for follow up and management (2) Dysuria: Code(s): R30.0 - Dysuria Plan: Will also send her to the lab for a urinalysis for further evaluation when she goes over there to get her x-rays done Plan Follow up as scheduled next month Orders: Orders XR chest 2V 01/25/23 J98.8 - Other specified respiratory disorders UA CC w/rflx Micro + Cult 01/25/23 R30.0 - Dysuria Referrals Pulmonary Medicine Referral J44.9 - Chronic obstructive pulmonary disease, unspecified Medications: New prednisone 4 tablets x 2 days, then 3 tablets x 2 days, then 2 tablets x 2 days, then 1 tablet x 2 days 8 days 20 tabs 0RF J45.901 - Unspecified asthma with (acute) exacerbation, M25.50 - Pain in unspecified joint albuterol sulfate 90 mcg/actuation 2 puffs inhalation Q6H PRN 8.5 grams 5RF shortness of breath or wheezing Trelegy Ellipta 100-62.5-25 mcg (ggczgupbjuq-iczlegqeg-ckznzdiw) 1 inh inhalation DAILY 60 ea 3RF NS J44.9 - Chronic obstructive pulmonary disease, unspecified albuterol sulfate 2.5 mg (3 mL) inhalation QID 30 days PRN 180 mL 3RF shortness of breath or wheezing J44.9 - Chronic obstructive pulmonary disease, unspecified Coding Level of Care Code Est Pt Level 3 (17323) Diagnoses COPD exacerbation J44.1 Dysuria R30.0
== END 2023-01-25 12:06 | disposition home or self-care (01) ==
PROVIDERS: PCP Internal Medicine; Visit Provider Internal Medicine
DX: J44.1 Chronic obstructive pulmonary disease with (acute) exacerbation (principal); R30.0 Dysuria
CPT/HCPCS: 99213

== ENCOUNTER 2023-01-25 12:13 | Outpatient (REF) | payer OTHER, SELFPAY ==
--- NOTE | ~2023-01-25 | XR_ITS ---
EXAMINATION: XR CHEST CLINICAL INFORMATION: Other specified respiratory disorders COMPARISON: Chest 09/05/2018, 08/22/2016 TECHNIQUE: 2 views of the chest were obtained. 1228 FINDINGS: The lungs are well expanded. There is new streaky opacity in the lingula. Right lung is clear. No significant pleural effusion. Peribronchial thickening is again noted. No significant abnormality is noted involving the heart, mediastinum, bony thorax or soft tissues. XR/XR chest 2V IMPRESSION: Lingular pneumonia. Follow-up to resolution is suggested.
[2023-01-25 15:06] LABS: Appearance Urine Clear; Color Urine Dark Yellow; Glucose Urine UA Negative (Negative); Leukocyte Esterase Urine Small (1+) (Negative); Nitrite Urine Positive (Negative); Specific Gravity - Urine 1.015 (1.005-1.025); UMIC TRIGGER UACC YES; Urine Blood Negative (Negative); Urine Ketones Trace mg/dL (Negative); Urine Protein Trace mg/dL (Neg-Trace)
[2023-01-25 15:27] LABS: Bacteria Urine None Seen (None Seen); Hyaline Casts Urine 0-2 /LPF (0-2); RBC Urine 0-2 /HPF (0-2); UACC Culture Trigger YES
== END 2023-01-25 12:14 | disposition home or self-care (01) ==
LOC: HO.XRAY 12:13
PROVIDERS: PCP Internal Medicine; Visit Provider Internal Medicine
DX: J98.8 Other specified respiratory disorders (principal); R30.0 Dysuria
CPT/HCPCS: 71046; 81001; 81003; 87086

== ENCOUNTER 2023-02-12 14:36 | Outpatient (AMB) | payer OTHER, SELFPAY ==
--- NOTE | 2023-02-12 14:43 | MHC.OFFVIS ---
Intake Vital Signs 02/12/23 14:45 Height 5 ft 2 in Weight 130 lb 1.164 oz BMI 23.8 BP 108/48 L Blood Pressure Location Lt brachial Position Sitting Pulse 69 Intake Visit Reasons: Colonoscopy Screening Intake Note: Akiko presents in the office as a colonoscopy screening. CC: She states that she has a cold and does not feel good but no GI concerns. Nutrient Management Specialist Required: No Allergies SANGITA Inhibitors [SANGITA INHIBITORS] Allergy (Unknown, Verified 02/12/23 14:46) COUGH Ceftin Allergy (Unknown, Verified 02/12/23 14:46) unknown Sulfa (Sulfonamide Antibiotics) Allergy (Unknown, Verified 02/12/23 14:46) rash atorvastatin [Lipitor] Adverse Reaction (Unknown, Verified 02/12/23 14:46) elevated liver enzymes HPI Colonoscopy Screening HPI Details 57 year old? female past medical history of COPD, osteoporosis, hyponatremia, polyarthralgia, Walker's esophagus, insomnia, hypertension, hypercholesteremia is here today for pre colonoscopy screening.? Patient had colonoscopy in her very early 50s. Patient reports that she had the procedure done at [facility] was told to repeat colonoscopy in 5 years due to polyps. Patient had upper endoscopy done by Dr. Cardoza in 2018 short segment of Walker's found with gastritis. Patient is currently on omeprazole. She has been on this medication for very long time. ? Patient denies any gastrointestinal symptoms in the past or at present.? Denies any personal or family history of gastrointestinal disease, colon polyps, or cancer.? Denies history of difficulty with sedation or anesthesia in the past.? Negative for history of sleep apnea.? Denies any history of cardiac, renal, or hepatic disease.?? No history of infectious? diseases like hepatitis A, B, C, HIV or tuberculosis.? Patient is not on any anticoagulation therapy. 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 Father No problems noted. Other Mental health problem Substance abuse Social History Housing: House Alcohol intake: current Alcohol intake frequency: 0-2 drinks per day Alcohol type: wine Patient Tobacco Use Status: Former Tobacco user e-Cigarette/Vaping Use: Never Used Second Hand Smoke Exposure: Yes service: No Current occupational status: unemployed Cognitive needs: No Hearing needs: No Vision needs: No Female Reproductive History Menstrual Age of Menarche: 14 Review of Systems Const Denies weight gain and Denies weight loss ENT Reports no additional complaints, Denies dysphagia and Denies odynophagia Card Reports no additional complaints Resp Reports no additional complaints GI Denies abdominal pain, Denies belching, Denies melena, Denies bloating, Denies change in bowel habits, Denies dysphagia, Denies excessive flatus, Denies dyspepsia, Denies heartburn, Denies diarrhea, Denies loose stools, Denies nausea, Denies odynophagia and Denies vomiting Musc Reports no additional complaints Neuro Reports no additional complaints Psych Reports no additional complaints Endo Reports no additional complaints Physical Exam Vital Signs: Last Vital Signs Pulse 69 02/12/23 14:45 BP 108/48 L 02/12/23 14:45 BMI result Body Mass Index 23.8 Const General: healthy appearing, no acute distress and well developed Nutritional Appearance: well nourished Orientation/consciousness: patient oriented x3 HEENT Head: Yes normal to inspection, Yes normocephalic and Yes atraumatic Face and sinus: Yes normal facial exam Mouth: Normal oral and palatal mucosa present Throat: Yes posterior oropharynx normal, Yes tonsils normal and Yes uvula midline Eyes General: appearance normal, both eyes and all related structures Neck Neck: Yes normal visual inspection, Yes full ROM and Yes trachea midline Thyroid: Thyroid normal Resp Effort & Inspection: normal respiratory effort, able to speak in complete sentences, no tracheal deviation and symmetric chest movement Auscultation: clear to auscultation bilaterally Cardio Rate: regular rate Heart sounds: S1 normal heart sound present and S2 normal heart sound present GI Inspection: Yes normal to inspection and No distended Palpation (GI): Soft to palpation, not firm, nontender and No hepatosplenomegaly present Auscultation: normal bowel sounds General: Yes no CVA tenderness Back/Spine/Pelvis Back: no CVA tenderness Skin General skin exam: elasticity normal, turgor normal and dry skin Neuro General: patient oriented x3 Psych Appearance: grossly normal Mental Status: mental status grossly normal Assessment & Plan Assessment & Plan (1) Colon cancer screening: Code(s): Z12.11 - Encounter for screening for malignant neoplasm of colon (2) Walker's esophagus without dysplasia: Code(s): K22.70 - Walker's esophagus without dysplasia (3) GERD without esophagitis: Code(s): K21.9 - Gastro-esophageal reflux disease without esophagitis Plan Patient denies any GI, cardiac.? 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 Patient reports that her son who is a EMT checked today saturation level and it was low. Denies any issues with anesthesia in the past.? Denies any history of sleep apnea.? No history infectious diseases in the past or present.? Not on any anticoagulation therapy.? ?History of polyps on her 1st colonoscopy at [facility]. Patient is overdue for colonoscopy. Diagnosed with Walker's in 2018 no follow-up endoscopy done. Will send patient for upper endoscopy to recheck for Walker's, gastritis, esophagitis. Patient reports that her mom of esophageal cancer at age of 63. Patient is currently taking omeprazole 40 mg daily and her symptoms are suppressed for the most part. Patient denies melena, hematochezia, unintentional weight loss or ribbon like stools.? Discussed at length the pre-procedure,? prep, diet & medications as well as what to expect prior, during and after the procedure.?? Stressed the importance of good bowel prep. ?Recommended the use of Vaseline or Calmoseptine OTC & baby wipes with bowel movements to promote comfort.? ?Patient verbalizes understanding and agrees to plan of care.? She was given the opportunity to ask questions and all questions answered.? We will see her after the procedure.? Medications: New bisacodyl (Dulcolax (bisacodyl)) take 2 tabs at noon the day before your colonoscopy 10 mg (2 x 5 mg) PO ONCE 2 tabs 0RF 1 day Z12.11 - Encounter for screening for malignant neoplasm of colon polyethylene glycol 3350 (Miralax) As directed by gastroenterology department at [facility] 238 grams PO ONCE 238 grams 0RF Z12.11 - Encounter for screening for malignant neoplasm of colon Coding Level of Care Code New Pt Level 4 (91678) Diagnoses Colon cancer screening Z12.11 Walker's esophagus without dysplasia K22.70 GERD without esophagitis K21.9 Time Spent (min) 45 Comment 30 minutes spent with patient and additional 15 minutes spent reviewing her records
[2023-02-12 14:45] VITALS: BP 108/48; PULSE 69; BMI 23.8
== END 2023-02-12 15:47 | disposition home or self-care (01) ==
PROVIDERS: PCP Internal Medicine; Visit Provider Nurse Practitioner Family
DX: Z01.818 Encounter for other preprocedural examination (principal); Z12.11 Encounter for screening for malignant neoplasm of colon; K22.70 Barrett's esophagus without dysplasia; K21.9 Gastro-esophageal reflux disease without esophagitis
CPT/HCPCS: S0285

== ENCOUNTER → 2023-02-12 14:36 | Outpatient (BNVA) | payer OTHER, SELFPAY | PROVIDERS: PCP Internal Medicine; Visit Provider Nurse Practitioner Family ==

== ENCOUNTER 2023-07-16 14:47 | Outpatient (REF) | payer OTHER, MEDICAID, SELFPAY ==
[2023-07-16 15:23] LABS: MANUAL DIFF FLAG NO
[2023-07-16 15:45] LABS: Basophils Absolute Auto 0.1 X10*3/uL (0.0-0.2); Basophils Percent Auto 1.8 % (0-2); Eosinophils Absolute Auto 0.1 X10*3/uL (0.0-0.4); Hematocrit 35.3 % (37.0-47.0); Hemoglobin 12.5 g/dl (12.0-16.0); Imm Gran Abs Auto 0.01 X10*3/uL (0.00-0.03); Imm Gran Pct Auto 0.2 % (0.0-0.4); Lymphocytes Absolute Auto 1.4 X10*3/uL (1.2-4.9); Lymphocytes Percent Auto 31.8 % (20-40); Mean Corpuscular HGB Conc 35.4 g/dl (31.0-35.0); Mean Corpuscular Hemoglobin 31.6 pg (27.0-33.0); Mean Corpuscular Volume 89.1 fL (80.0-98.0); Monocytes Absolute Auto 0.5 X10*3/uL (0.1-1.2); Monocytes Percent Auto 11.3 % (2-11); Neutrophils Absolute Auto 2.3 x10*3/uL (2.0-8.3); Neutrophils Percent Auto 51.9 % (45-73); Platelet Count 327 X10*3/uL (160-400); Red Blood Count 3.96 X10*6/uL (4.20-5.50); White Blood Count 4.3 X10*3/uL (4.8-10.8)
[2023-07-16 15:52] LABS: INTERNATIONAL NORM RATIO 0.9 (0.9-1.1); Prothrombin Time 11.3 SEC (11.1-13.3)
[2023-07-16 15:54] LABS: Partial Thromboplastin Time 31.3 SEC (26.0-36.8)
[2023-07-16 16:33] LABS: Alanine Aminotransferase 19 U/L (0-31); Albumin Level 4.2 g/dL (3.5-5.0); Alkaline Phosphatase 66 U/L (39-117); Anion Gap 13 (12-20); Aspartate Amino Transferase 24 U/L (5-31); Bilirubin Total 0.2 mg/dL (0.0-1.0); Blood Urea Nitrogen 10 mg/dL (9-16); Calcium 9.7 mg/dL (8.4-10.2); Carbon Dioxide 25 mmol/L (22-29); Chloride 103 mmol/L (96-108); Cholesterol 181 mg/dL (<200); Estimated Glomerular Filt Rate > 60; Glucose Fasting 92 mg/dL (60-99); HDL Cholesterol 64 mg/dL (>40); LDL Cholesterol Calculated 102 mg/dL (<100); Potassium 4.1 mmol/L (3.3-5.1); Sodium 137 mmol/L (135-145); Total Protein 7.4 g/dL (6.5-8.0); Triglycerides 79 mg/dL (<150)
[2023-07-16 17:03] LABS: TSH reflex Free T4 2.24 uIU/mL (0.32-4.0); Vitamin D 25-OH Total 47.2 ng/mL (>30)
[2023-07-16 17:35] LABS: Folate 4.1 ng/mL (> or = 4.0); Vitamin B12 198 pg/mL (200-900)
[2023-07-16 17:47] LABS: Appearance Urine Clear; Color Urine Yellow; Glucose Urine UA Negative (Negative); Leukocyte Esterase Urine Trace (Negative); Nitrite Urine Negative (Negative); Specific Gravity - Urine 1.015 (1.005-1.025); UMIC TRIGGER UACC YES; Urine Blood Negative (Negative); Urine Ketones Negative (Negative); Urine Protein Negative (Neg-Trace)
[2023-07-16 17:57] LABS: Bacteria Urine None Seen (None Seen); Hyaline Casts Urine 0-2 /LPF (0-2); RBC Urine 0-2 /HPF (0-2); Squamous Epithelial Cell Urine 0-2 /HPF (0-2); WBC Urine 0-5 /HPF (0-5)
== END 2023-07-16 14:48 | disposition home or self-care (01) ==
LOC: HO.LAB 14:47
PROVIDERS: PCP Internal Medicine; Visit Provider Internal Medicine
DX: I10 Essential (primary) hypertension (principal); E78.00 Pure hypercholesterolemia, unspecified; E53.8 Deficiency of other specified B group vitamins; R58 Hemorrhage, not elsewhere classified; E55.9 Vitamin D deficiency, unspecified; R30.0 Dysuria
CPT/HCPCS: 36415; 80053; 80061; 81001; 82306; 82607; 82746; 84443; 85025; 85610; 85730

== ENCOUNTER 2023-07-17 16:09 | Outpatient (AMB) | payer OTHER, MEDICAID, SELFPAY ==
[2023-07-17 16:10] VITALS: BP 108/66; PULSE 74; O2SAT 97; BMI 24.0
--- NOTE | 2023-07-17 16:10 | A.OFFPC_ITS ---
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: No Allergies SANGITA Inhibitors [SANGITA INHIBITORS] Allergy (Unknown, Verified 07/18/23 04:17) COUGH Ceftin Allergy (Unknown, Verified 07/18/23 04:17) unknown Sulfa (Sulfonamide Antibiotics) Allergy (Unknown, Verified 07/18/23 04:17) rash atorvastatin [Lipitor] Adverse Reaction (Unknown, Verified 07/18/23 04:17) elevated liver enzymes Medication List - Last Reconciled 07/18/23 by Zeb Colorado MD albuterol sulfate 90 mcg/actuation 2 puffs inhalation Q6H PRN albuterol sulfate 2.5 mg (3 mL) inhalation QID PRN 30 days amlodipine 2.5 mg PO DAILY bisacodyl (Dulcolax (bisacodyl)) 10 mg (2 x 5 mg) PO ONCE 1 day vyihhkfwxy-jqgtndsuklvgn-cuyj 50-325-40 mg 1 tab PO .2-3 TIMES A DAY PRN 30 days cetirizine 10 mg PO DAILY chlorhexidine gluconate 0.12% PO cyanocobalamin (vitamin B-12) 1,000 mcg PO DAILY 90 days hydrochlorothiazide 12.5 mg PO DAILY 90 days levofloxacin 500 mg PO DAILY losartan 100 mg PO DAILY 90 days montelukast 10 mg PO DAILY nadolol 20 mg PO BEDTIME 90 days omeprazole 40 mg PO DAILY polyethylene glycol 3350 (Miralax) 238 grams PO ONCE pregabalin 75 mg PO BID rosuvastatin 5 mg PO DAILY 90 days sumatriptan succinate 50 mg PO Q2-4H PRN 30 days topiramate 50 mg PO BID trazodone 50 mg PO BEDTIME PRN 30 days Trelegy Ellipta 100-62.5-25 mcg (ssmbvrvzkoq-twcuwlnlx-zrvscxhc) 1 inh inhalation DAILY NS venlafaxine ER 75 mg PO DAILY 90 days Tobacco use date assessed: 07/17/23 Dental Screening Dental Screen Date: 07/17/23 Did you have a dental visit in the last 12 months?: No Did you have a dental problem in the last 6 months where you did not have access to dental care?: No HPI HTN, COPD HPI Details Patient comes in today for her follow up visit States that she has been experiencing some burning sensation and discomfort on urination for the past couple of days States that she feels okay otherwise She denies any headaches or dizziness Denies any chest pains, no SOB No nausea/vomiting, no abdominal pain No change in bowel habits noted Needs a few of her Rx refilled Had her follow up labs done yesterday - to discuss her results [facility] Medical History (Updated 07/18/23 @ 05:26 by Zeb Colorado MD) 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 Father No problems noted. Other Mental health problem Substance abuse Social History Housing: House Alcohol intake: current Alcohol intake frequency: 0-2 drinks per day Alcohol type: wine Patient Tobacco Use Status: Former Tobacco user e-Cigarette/Vaping Use: Never Used Second Hand Smoke Exposure: Yes service: No Current occupational status: unemployed Cognitive needs: No Hearing needs: No Vision needs: No Female Reproductive History Menstrual Age of Menarche: 14 Questionnaire PHQ-9 Over the last 2 weeks, how often have you been bothered by any of the following problems? 1. Little interest or pleasure in doing things: not at all 2. Feeling down, depressed, or hopeless: not at all 3. Trouble falling or staying asleep, or sleeping too much: not at all 4. Feeling tired or having little energy: not at all 5. Poor appetite or overeating: not at all 6. Feeling bad about yourself - or that you are a failure or have let yourself or your family down: not at all 7. Trouble concentrating on things, such as reading the newspaper or watching television: not at all 8. Moving or speaking so slowly that other people could have noticed. Or the opposite - being so fidgety or restless that you have been moving around a lot more than usual: not at all 9. Thoughts that you would be better off or of hurting yourself in some way: not at all Total score: 0 Depression Screening Interpretation: Negative Depression Screening Done: Yes 69859 - PHQ-9 Billing: Yes Source: Developed by Drs. Santos Florentino, Tammy Santos, Jigar Giraldo and colleagues, with an educational chacho from [employer]. Thrive Questionnaire Date Thrive assessed: 07/17/23 I am a: Patient What is your living situation today?: I have a steady place to live Within the past 12 months, did the food you bought not last and you didn't have the money to get more?: Never true Within the past 12 months, did you worry whether your food would run out before you got money to buy more?: Never true Do you have trouble paying for medicines?: No Do you have trouble getting transportation to medical appointments?: No Do you have trouble paying your heating and electricity bill?: No Do you have trouble taking care of your child, family member or friend?: No Do you have trouble with day-to-day activities such as bathing, preparing meals, shopping, managing finances, etc.?: No Are you currently unemployed and looking for a job?: No Are you interested in more education?: No Please select the resources that you would like help with: None Currently or been in a relationship where the following occur: no concerns reported THRIVE Score: 0 AUDIT C Alcohol Use Questionnaire (AUDIT-C) 1. How often do you have a drink containing alcohol?: 4 or more times a week 2. How many drinks containing alcohol do you have on a typical day when you are drinking?: 1 or 2 3. How often do you have six or more drinks on one occasion?: Never Total Score: 4 Score Reviewed/Action Taken: Yes CHANCE-7 AMB Questionnaire CHANCE-7 Date CHANCE - 7 assessed: 07/17/23 Source: Developed by Drs. Santos Florentino, Tammy Santos, Jigar Giraldo and colleagues, with an educational chacho from [employer]. Review of Systems Const Denies chills, Reports fatigue, Denies fever(s) and Denies headache(s) ENT Denies dysphagia, Denies dizziness, Denies otalgia, Denies headache(s), Denies neck pain, Denies odynophagia and Denies sore throat Card Denies chest pain, Denies rapid heart rate, Denies irregular heart rhythm, Denies palpitations and Denies dyspnea Resp Denies chest congestion, Denies cough, Denies dyspnea and Denies wheezing GI Denies abdominal pain, Denies constipation, Denies dysphagia, Denies heartburn, Denies diarrhea, Denies nausea, Denies odynophagia and Denies vomiting Denies hematuria, Denies urinary frequency, Reports dysuria (mild), Denies urinary incontinence and Denies urinary urgency Musc Denies back pain, Denies arthralgias and Denies neck pain Skin/Breast Denies rash Neuro Denies dizziness, Denies headache(s) and Denies paresthesias Psych Denies anxiety and Denies depression Endo Reports fatigue and Denies palpitations Aller/Immun Denies wheezing Physical exam (Primary Care) Vital Signs: Last Vital Signs Pulse 74 07/17/23 16:10 BP 108/66 07/17/23 16:10 Pulse Ox 97 07/17/23 16:10 Oxygen Delivery Method Room Air 07/17/23 16:10 BMI result Body Mass Index 24.0 Tobacco/Smoking Status: Tobacco use Status Tobacco use date assessed 07/17/23 07/17/23 16:12 Patient Tobacco Use Status Former Tobacco user 07/17/23 16:12 e-Cigarette/Vaping Use Never Used 07/17/23 16:12 PHQ-9: PHQ-9 Score PHQ-9: Total score 0 07/17/23 16:58 Depression Screening Interpretation: Negative Thrive Assessment: Date of Thrive Assessment Date Thrive assessed 07/17/23 07/17/23 16:12 Currently or been in a relationship where the following occur: no concerns reported Const General: no acute distress and alert HENMT Ears: TM's normal bilaterally and EAC's normal Throat: Yes posterior oropharynx normal and Yes tonsils normal (no TP congestion) Neck Neck: Yes no lymphadenopathy and Yes supple Thyroid: Thyroid normal Resp Auscultation: no crackles, no rales, no wheezes and diminished lung sounds bilateral Cardio Rate: regular rate Rhythm: regular rhythm Heart sounds: no murmurs GI Palpation (GI): Soft to palpation and nontender Auscultation: normal bowel sounds General: Yes no CVA tenderness Back/Spine/Pelvis Back: no CVA tenderness Thoracic/Lumbar Spine: No lumbar spinal tenderness Skin Rashes: no rashes Extrem General: Yes no clubbing, cyanosis or edema Results AMB Urinalysis, Automated UA Leukoctes 125 Suraj/uL Last Edit by DAMEON Resendiz on 07/17/23 16:26 UA Nitrite Negative Last Edit by DAMEON Resendiz on 07/17/23 16:26 UA Urobilinogen 0.2 mg/dL Last Edit by DAMEON Resendiz on 07/17/23 16:26 UA Protein 0 mg/dL Last Edit by DAMEON Resendiz on 07/17/23 16:26 UA pH 7.0 Last Edit by DAMEON Resendiz on 07/17/23 16:26 UA Blood 0 Misbah/uL Last Edit by DAMEON Resendiz on 07/17/23 16:26 UA Specific [place] 1.005 Last Edit by DAMEON Resendiz on 07/17/23 16:26 UA Ketone Negative Last Edit by DAMEON Resendiz on 07/17/23 16:26 UA Bilirubin 0 mg/dL Last Edit by DAMEON Resendiz on 07/17/23 16:26 UA Glucose 0 mg/dL Last Edit by DAMEON Resendiz on 07/17/23 16:26 Results Reviewed Results Reviewed: Laboratory Last Values Urine pH (Auto) 7.0 07/17/23 16:19 Specific [place] (Auto) 1.005 07/17/23 16:19 Urine Protein (Auto) 0 mg/dL 07/17/23 16:19 Glucose (UA)(Auto) 0 mg/dL 07/17/23 16:19 Urine Ketones (Auto) Negative 07/17/23 16:19 Urine Blood (Auto) 0 Misbah/uL 07/17/23 16:19 Urine Nitrite (Auto) Negative 07/17/23 16:19 Urine Bilirubin (Auto) 0 mg/dL 07/17/23 16:19 Urine Urobilinogen (Auto) 0.2 mg/dL 07/17/23 16:19 Leukocyte Esterase (Auto) 125 Suraj/uL 07/17/23 16:19 Laboratory Tests 07/16/23 07/16/23 14:38 15:22 WBC 4.3 L Hgb 12.5 Hct 35.3 L Plt Count 327 PT 11.3 INR 0.9 APTT 31.3 Sodium 137 Potassium 4.1 Creatinine 0.69 Estimated GFR > 60 Fasting Glucose 92 Calcium 9.7 AST 24 ALT 19 Triglycerides 79 Cholesterol 181 LDL Cholesterol, Calc 102 H HDL Cholesterol 64 Vitamin B12 198 L 25-OH Vitamin D Total 47.2 TSH 2.24 Urine pH 8.0 Ur Specific [place] 1.015 Urine Protein Negative Urine Glucose (UA) Negative Urine Blood Negative Urine Nitrite Negative Ur Leukocyte Esterase Trace H Assessment and Plan Assessment & Plan (1) Pure hypercholesterolemia: Code(s): E78.00 - Pure hypercholesterolemia, unspecified Plan: Results of her labs done yesterday reviewed and discussed with patient - is advised that her LDL cholesterol has increased from previous Reinforced low cholesterol diet Continue Rosuvastatin 5 mg QD - Rx refilled Will recheck her labs and fasting lipids in 4 months for follow up (2) Benign essential hypertension: Code(s): I10 - Essential (primary) hypertension Plan: Reinforced low sodium diet - goal is systolic BP of 120 to 130 mm or less Continue Amlodipine 2.5 mg QD, HCTZ 12.5 mg QD and Losartan 100 mg QD Neurology apparently increased her Amlodipine to 5 mg QD when she was seen back in January 2023 but it looks like patient stayed on 2.5 mg QD and never went up on her dose As her BP currently appears better controlled, will keep her on the 2.5 mg daily dose for now (3) COPD (chronic obstructive pulmonary disease): Comment: 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 Kalpesh Monge at [facility] again regularly for her pulmonary follow up (4) Migraine: Code(s): G43.909 - Migraine, unspecified, not intractable, without status migrainosus Qualifiers: Intractability: not intractable Migraine type: unspecified Status migrainosus presence: without status migrainosus Qualified Code(s): G43.909 - Migraine, unspecified, not intractable, without status migrainosus Plan: Continue Fioricet 50-325-40 mg TID PRN and Sumatriptan 50 mg PRN as instructed Her Nadolol 20 mg Q HS for HEBERT prophylaxis was switched to Topiramate 50 mg BID by neurology when she was seen back in January 2023 and patient states that her headaches have been better controlled since She has since continued taking her Nadolol 20 mg Q HS - can consider having her stop taking this later on Follow up with neurology as scheduled (5) Polyarthralgia: Code(s): M25.50 - Pain in unspecified joint Plan: Continue Lyrica 75 mg BID - patient has been mostly taking this QD only as she feels very sedated when taking it BID Follow up [facility] as scheduled (6) Allergic rhinitis: Code(s): J30.9 - Allergic rhinitis, unspecified Qualifiers: Allergic rhinitis seasonality: unspecified Allergic rhinitis trigger: unspecified Qualified Code(s): J30.9 - Allergic rhinitis, unspecified Plan: Continue Cetirizine 10 mg QD PRN and Montelukast 10 mg Q PM (7) GERD without esophagitis: Code(s): K21.9 - Gastro-esophageal reflux disease without esophagitis Plan: Dietary restrictions reinforced Continue Omeprazole 40 mg QD (8) Walker's esophagus without dysplasia: Code(s): K22.70 - Walker's esophagus without dysplasia Plan: Continue PPI Tx She was supposed to follow up with GI regularly for continuing surveillance but she has not seen GI since her last EGD by Dr. Cardoza back in 2013; was referred back to GI for follow up and consideration for repeat EGD at her last visit She was seen by GI back in January 2023 but they have requested pulmonary clearance first before scheduling her for her procedures due to her COPD (9) Elevated LFTs: Code(s): R79.89 - Other specified abnormal findings of blood chemistry Plan: Her LFTs are now normal on her recent labs - were likely due to her regular alcohol intake and she was advised to cut back on her drinking Will continue to monitor her LFTs and labs regularly (10) Hyponatremia: Code(s): E87.1 - Hypo-osmolality and hyponatremia Plan: Her serum sodium is also now normal on her labs done yesterday She has been advised that this was also likely related to her frequent/regular alcohol intake Will continue to monitor her serum sodium level regularly as well (11) Multiple ecchymoses of both upper arms: Code(s): R58 - Hemorrhage, not elsewhere classified Plan: Patient's recent CBC is again normal and she reports NO Hx of bleeding tendencies or prolonged bleeding when injured; her PT/INR and APTT levels were also normal when checked yesterday; B12 level was low Advised that these are also most likely related to her frequent alcohol intake (12) Vitamin B12 deficiency: Code(s): E53.8 - Deficiency of other specified B group vitamins Plan: She is advised that her Vitamin B12 level is low on her recent labs Will start her on Vitamin B12 1000 mcg QD - advised that she can get these OTC if her insurance will not cover the Rx (13) Dysuria: Code(s): R30.0 - Dysuria Plan: Patient only has mild leucocytes in her recent urinalysis done yesterday and repeated in the office today As she has symptoms suggestive of UTI, will go ahead and start her empirically on Levofloxacin 500 mg QD x 7 days She is encouraged to increase her oral fluid intake (14) Insomnia: Code(s): G47.00 - Insomnia, unspecified Qualifiers: Insomnia type: unspecified Qualified Code(s): G47.00 - Insomnia, unspecified Plan: Sleep hygiene reinforced Continue Trazodone 50 mg Q HS PRN (15) Depression: Code(s): F32.9 - Major depressive disorder, single episode, unspecified Qualifiers: Active/Remission status: currently active Depression Type: major depressive disorder Major depression episode severity: unspecified Major depression recurrence: recurrent Qualified Code(s): F33.9 - Major depressive disorder, recurrent, unspecified Plan: Continue Venlafaxine 75 mg QD Follow up with psychiatry as scheduled Plan Follow up in 4 months Orders: Orders AMB Urinalysis Automated 07/17/23 R30.0 - Dysuria Complete Blood Count Auto Diff 4 Months D64.9 - Anemia, unspecified Comprehensive [place]. Panel Fast 4 Months E78.00 - Pure hypercholesterolemia, unspecified Lipid Panel 4 Months E78.00 - Pure hypercholesterolemia, unspecified TSH reflex Free T4 4 Months E78.00 - Pure hypercholesterolemia, unspecified Vitamin D 25-OH Total 4 Months E55.9 - Vitamin D deficiency, unspecified UA CC w/rflx Micro + Cult 4 Months R30.0 - Dysuria Vitamin B12 and Folate 4 Months E53.8 - Deficiency of other specified B group vitamins Medications: New levofloxacin 500 mg PO DAILY 7 tabs 0RF cyanocobalamin (vitamin B-12) 1,000 mcg PO DAILY 90 days 90 tabs 3RF E53.8 - Deficiency of other specified B group vitamins Changed From hydrochlorothiazide 12.5 mg PO DAILY 90 days 90 tabs 0RF I10 - Essential (primary) hypertension To hydrochlorothiazide okay to refill early 12.5 mg PO DAILY 90 days 90 tabs 1RF I10 - Essential (primary) hypertension Refilled venlafaxine ER 75 mg PO DAILY 90 days 90 caps 1RF sumatriptan succinate do not take more than 4 doses in 24 hours 50 mg PO Q2-4H 30 days PRN 90 tabs 3RF migraine headache G43.909 - Migraine, unspecified, not intractable, without status migrainosus rosuvastatin 5 mg PO DAILY 90 days 90 tabs 1RF E78.00 - Pure hypercholesterolemia, unspecified losartan 100 mg PO DAILY 90 days 90 tabs 1RF I10 - Essential (primary) hypertension Coding Level of Care Code Est Pt Level 4 (90257) Diagnoses Pure hypercholesterolemia E78.00 Benign essential hypertension I10 Chronic obstructive pulmonary disease, unspecified COPD type J44.9 COPD type: unspecified COPD Migraine without status migrainosus, not intractable, unspecified migraine type G43.909 Intractability: not intractable Migraine type: unspecified Status migrainosus presence: without status migrainosus Polyarthralgia M25.50 Allergic rhinitis, unspecified seasonality, unspecified trigger J30.9 Allergic rhinitis seasonality: unspecified Allergic rhinitis trigger: unspecified GERD without esophagitis K21.9 Walker's esophagus without dysplasia K22.70 Elevated LFTs R79.89 Hyponatremia E87.1 Multiple ecchymoses of both upper arms R58 Vitamin B12 deficiency E53.8 Dysuria R30.0 Insomnia, unspecified type G47.00 Insomnia type: unspecified Episode of recurrent major depressive disorder, unspecified depression episode severity F33.9 Active/Remission status: currently active Depression Type: major depressive disorder Major depression episode severity: unspecified Major depression recurrence: recurrent
== END 2023-07-17 17:05 | disposition home or self-care (01) ==
PROVIDERS: PCP Internal Medicine; Visit Provider Internal Medicine
DX: E78.00 Pure hypercholesterolemia, unspecified (principal); J44.9 Chronic obstructive pulmonary disease, unspecified; R30.0 Dysuria; F33.9 Major depressive disorder, recurrent, unspecified; I10 Essential (primary) hypertension; G43.909 Migraine, unspecified, not intractable, without status migrainosus; M25.50 Pain in unspecified joint; J30.9 Allergic rhinitis, unspecified; K21.9 Gastro-esophageal reflux disease without esophagitis; K22.70 Barrett's esophagus without dysplasia; R79.89 Other specified abnormal findings of blood chemistry; E87.1 Hypo-osmolality and hyponatremia
CPT/HCPCS: 81003; 99214

== ENCOUNTER 2023-11-22 07:10 | Outpatient (REF) | payer OTHER, MEDICAID, SELFPAY ==
[2023-11-22 07:22] LABS: MANUAL DIFF FLAG NO
[2023-11-22 07:40] LABS: Basophils Absolute Auto 0.1 X10*3/uL (0.0-0.2); Eosinophils Absolute Auto 0.3 X10*3/uL (0.0-0.4); Eosinophils Percent Auto 3.6 % (0-4); Hematocrit 36.1 % (37.0-47.0); Hemoglobin 12.7 g/dl (12.0-16.0); Imm Gran Abs Auto 0.02 X10*3/uL (0.00-0.03); Imm Gran Pct Auto 0.3 % (0.0-0.4); Lymphocytes Absolute Auto 2.9 X10*3/uL (1.2-4.9); Lymphocytes Percent Auto 42.4 % (20-40); Mean Corpuscular HGB Conc 35.2 g/dl (31.0-35.0); Mean Corpuscular Hemoglobin 30.9 pg (27.0-33.0); Mean Corpuscular Volume 87.8 fL (80.0-98.0); Mean Platelet Volume 9.1 fL (9.4-12.3); Monocytes Absolute Auto 0.7 X10*3/uL (0.1-1.2); Monocytes Percent Auto 10.2 % (2-11); Neutrophils Absolute Auto 2.9 x10*3/uL (2.0-8.3); Neutrophils Percent Auto 42.5 % (45-73); Platelet Count 336 X10*3/uL (160-400); Red Blood Count 4.11 X10*6/uL (4.20-5.50); Red Cell Distribution Width 11.8 % (11.0-16.0); White Blood Count 6.9 X10*3/uL (4.8-10.8)
[2023-11-22 08:32] LABS: Alanine Aminotransferase 11 U/L (0-31); Albumin Level 4.4 g/dL (3.5-5.0); Alkaline Phosphatase 76 U/L (39-117); Anion Gap 12 (12-20); Aspartate Amino Transferase 19 U/L (5-31); Bilirubin Total 0.2 mg/dL (0.0-1.0); Blood Urea Nitrogen 11 mg/dL (9-16); Carbon Dioxide 28 mmol/L (22-29); Chloride 92 mmol/L (96-108); Cholesterol 202 mg/dL (<200); Estimated Glomerular Filt Rate > 60; Glucose Fasting 98 mg/dL (60-99); HDL Cholesterol 61 mg/dL (>40); LDL Cholesterol Calculated 117 mg/dL (<100); Sodium 128 mmol/L (135-145); Total Protein 7.4 g/dL (6.5-8.0); Triglycerides 123 mg/dL (<150)
[2023-11-22 08:49] LABS: TSH reflex Free T4 6.26 uIU/mL (0.32-4.0); Vitamin D 25-OH Total 54.7 ng/mL (>30)
[2023-11-22 09:02] LABS: Folate 4.4 ng/mL (> or = 4.0); Vitamin B12 875 pg/mL (200-900)
[2023-11-22 09:43] LABS: Free T4 (Free Thyroxine) 0.75 ng/dL (0.71-1.85)
== END 2023-11-22 07:11 | disposition home or self-care (01) ==
LOC: HO.LAB 07:10
PROVIDERS: PCP Internal Medicine; Visit Provider Internal Medicine
DX: D64.9 Anemia, unspecified (principal); E78.00 Pure hypercholesterolemia, unspecified; E55.9 Vitamin D deficiency, unspecified; E53.8 Deficiency of other specified B group vitamins
CPT/HCPCS: 36415; 80053; 80061; 82306; 82607; 82746; 84439; 84443; 85025

== ENCOUNTER 2023-11-22 16:48 | Outpatient (AMB) | payer OTHER, MEDICAID, SELFPAY ==
--- NOTE | 2023-11-22 16:59 | A.OFFPC_ITS ---
Vital Signs 11/22/23 17:00 Height 5 ft 2 in Weight 130 lb 4 oz BMI 23.8 BP 116/64 Blood Pressure Location Lt brachial Position Sitting Pulse 49 L Pulse Source Pulse Oximeter Pulse Oximetry (%) 99 Oxygen Delivery Method Room Air Intake Visit Reasons: 4mof\u Testing Lead Required: No Accompanied by: Self / Same As Patient Allergies SANGITA Inhibitors [SANGITA INHIBITORS] Allergy (Unknown, Verified 11/22/23 17:15) COUGH Ceftin Allergy (Unknown, Verified 11/22/23 17:15) unknown Sulfa (Sulfonamide Antibiotics) Allergy (Unknown, Verified 11/22/23 17:15) rash atorvastatin [Lipitor] Adverse Reaction (Unknown, Verified 11/22/23 17:15) elevated liver enzymes Medication List - Last Reconciled 11/22/23 by Zeb Colorado MD albuterol sulfate 90 mcg/actuation 2 puffs inhalation Q6H PRN albuterol sulfate 2.5 mg (3 mL) inhalation QID PRN 30 days amlodipine 2.5 mg PO DAILY bisacodyl (Dulcolax (bisacodyl)) 10 mg (2 x 5 mg) PO ONCE 1 day wxdfradduk-aeisfnpqvwnke-esyr 50-325-40 mg 1 tab PO .2-3 TIMES A DAY PRN 30 days cetirizine 10 mg PO DAILY chlorhexidine gluconate 0.12% PO cyanocobalamin (vitamin B-12) 1,000 mcg PO DAILY 90 days hydrochlorothiazide 12.5 mg PO DAILY 90 days losartan 100 mg PO DAILY 90 days montelukast 10 mg PO DAILY nadolol 20 mg PO BEDTIME 90 days omeprazole 40 mg PO DAILY polyethylene glycol 3350 (Miralax) 238 grams PO ONCE pregabalin 75 mg PO BID rosuvastatin 5 mg PO DAILY 90 days sumatriptan succinate 50 mg PO Q2-4H PRN 30 days tizanidine 4 mg PO BID PRN topiramate 50 mg PO BID trazodone 50 mg PO BEDTIME PRN 30 days Trelegy Ellipta 100-62.5-25 mcg (yrbbtingldd-jtztzjobt-tzszmjko) 1 inh inhalation DAILY NS venlafaxine ER 75 mg PO DAILY 90 days Tobacco use date assessed: 11/22/23 Dental Screening Dental Screen Date: 11/22/23 Did you have a dental visit in the last 12 months?: Yes Did you have a dental problem in the last 6 months where you did not have access to dental care?: No Was dental information given to patient?: Patient has dentist HPI 4mof\u HPI Details Patient comes in today for her follow up visit States that she currently has multiple issues to discuss Relates that she has been experiencing increasing anxiety and feeling depressed lately with her current family issues She has been living with her son for a few years now and she was advised by her son recently that he is thinking about selling his house, which would leave her without a place to stay Her 21 y/o daughter is also living with her so she is concerned that her daughter would also have no place to stay States that she has been applying for disability and would like need to have our office help fill out some paperworks sometime in the next few weeks/months regarding this Adds that she feels that her breathing has been acting up/flaring up a lot lately - she has a follow up appointment coming up in a few days with pulmonary (Dr. Monge) at [facility] She relates (+) dizziness at times recently but denies any headaches - feels that her migraine headaches have been reasonably controlled for the past few months now She used to see Dr. Fry for her headaches but has not been able to get back to see him since her last visit in January 2023 due to some issues/changes with her insurance over the past few months She denies any exertional chest pains No nausea/vomiting, no abdominal pain No change in bowel habits noted Needs her Trazodone Rx refilled although she states that even with this, she has been having trouble sleeping at night lately, likely due to her increased anxiety and depression She had her follow up labs done earlier this morning - to discuss her results [facility] Medical History (Updated 11/22/23 @ 17:24 by Zeb Colorado MD) 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 Father No problems noted. Other Mental health problem Substance abuse Social History Housing: House Alcohol intake: current Alcohol intake frequency: 0-2 drinks per day Alcohol type: wine Patient Tobacco Use Status: Former Tobacco user e-Cigarette/Vaping Use: Never Used Second Hand Smoke Exposure: Yes service: No Current occupational status: unemployed Cognitive needs: No Hearing needs: No Vision needs: No Female Reproductive History Menstrual Age of Menarche: 14 Questionnaire PHQ-9 Over the last 2 weeks, how often have you been bothered by any of the following problems? 1. Little interest or pleasure in doing things: more than half the days 2. Feeling down, depressed, or hopeless: nearly every day 3. Trouble falling or staying asleep, or sleeping too much: nearly every day 4. Feeling tired or having little energy: nearly every day 5. Poor appetite or overeating: several days 6. Feeling bad about yourself - or that you are a failure or have let yourself or your family down: not at all 7. Trouble concentrating on things, such as reading the newspaper or watching television: several days 8. Moving or speaking so slowly that other people could have noticed. Or the opposite - being so fidgety or restless that you have been moving around a lot more than usual: not at all 9. Thoughts that you would be better off or of hurting yourself in some way: not at all Total score: 13 Depression Screening Interpretation: Positive Depression Screening Follow-up: Existing condition, In treatment and Change in Medication Depression Screening Done: Yes 02128 - PHQ-9 Billing: Yes Source: Developed by Drs. Santos Florentino, Tammy Santos, Jigar Giraldo and colleagues, with an educational chacho from [employer]. Thrive Questionnaire Date Thrive assessed: 11/22/23 I am a: Patient What is your living situation today?: I have a steady place to live Within the past 12 months, did the food you bought not last and you didn't have the money to get more?: Never true Within the past 12 months, did you worry whether your food would run out before you got money to buy more?: Never true Do you have trouble paying for medicines?: No Do you have trouble getting transportation to medical appointments?: No Do you have trouble paying your heating and electricity bill?: No Do you have trouble taking care of your child, family member or friend?: No Do you have trouble with day-to-day activities such as bathing, preparing meals, shopping, managing finances, etc.?: No Are you currently unemployed and looking for a job?: No Are you interested in more education?: No Please select the resources that you would like help with: None Currently or been in a relationship where the following occur: No concerns reported THRIVE Score: 0 AUDIT C Alcohol Use Questionnaire (AUDIT-C) 1. How often do you have a drink containing alcohol?: 4 or more times a week 2. How many drinks containing alcohol do you have on a typical day when you are drinking?: 1 or 2 3. How often do you have six or more drinks on one occasion?: Never Total Score: 4 Score Reviewed/Action Taken: Yes CHANCE-7 AMB Questionnaire CHANCE-7 Date CHANCE - 7 assessed: 11/22/23 Feeling nervous, anxious, or on edge: 0 = Not at all Not being able to stop or control worryin = Not at all Worrying too much about different things: 0 = Not at all Trouble relaxin = Not at all Being so restless that it is hard to sit still: 0 = Not at all Becoming easily annoyed or irritable: 0 = Not at all Feeling afraid as if something awful might happen: 0 = Not at all Total CHANCE-7 score (0-4 normal; 5-9 mild; 10-14 moderate; 15-21 severe): 0 Source: Developed by Drs. Santos Florentino, Tammy Santos, Jigar Giraldo and colleagues, with an educational chacho from [employer]. Review of Systems Const Denies chills, Reports difficulty sleeping, Reports fatigue, Denies fever(s) and Denies headache(s) ENT Denies dysphagia, Reports dizziness (on and off lately), Denies otalgia, Denies headache(s), Denies neck pain, Denies odynophagia and Denies sore throat Card Denies chest pain, Denies rapid heart rate, Denies irregular heart rhythm, Denies palpitations and Reports dyspnea on exertion (mild) Resp Reports chest congestion (recurrent lately), Reports cough (on and off), Denies pain with cough, Reports dyspnea on exertion (mild) and Denies wheezing GI Denies abdominal pain, Denies constipation, Denies dysphagia, Denies heartburn, Denies diarrhea, Denies nausea, Denies odynophagia and Denies vomiting Denies hematuria, Denies urinary frequency, Denies dysuria, Denies urinary incontinence and Denies urinary urgency Musc Denies back pain, Denies arthralgias and Denies neck pain Skin/Breast Denies rash Neuro Reports dizziness (on and off lately), Denies headache(s) and Denies paresthesias Psych Reports anxiety (increasing), Reports depression (increasing) and Denies suicidal ideation Endo Reports fatigue and Denies palpitations Aller/Immun Denies wheezing Physical exam (Primary Care) Vital Signs: Last Vital Signs Pulse 49 L 11/22/23 17:00 BP 116/64 11/22/23 17:00 Pulse Ox 99 11/22/23 17:00 Oxygen Delivery Method Room Air 11/22/23 17:00 BMI result Body Mass Index 23.8 Tobacco/Smoking Status: Tobacco use Status Tobacco use date assessed 11/22/23 11/22/23 17:06 Patient Tobacco Use Status Former Tobacco user 11/22/23 17:06 e-Cigarette/Vaping Use Never Used 11/22/23 17:06 PHQ-9: PHQ-9 Score PHQ-9: Total score 0 11/22/23 17:16 Depression Screening Interpretation: Positive Depression Screening Follow-up: Existing condition, In treatment and Change in Medication Thrive Assessment: Date of Thrive Assessment Date Thrive assessed 11/22/23 11/22/23 17:06 Currently or been in a relationship where the following occur: No concerns reported Const General: no acute distress and alert HENMT Ears: TM's normal bilaterally and EAC's normal Throat: Yes posterior oropharynx normal and Yes tonsils normal (no TP congestion) Neck Neck: Yes no lymphadenopathy and Yes supple Thyroid: Thyroid normal Resp Auscultation: no crackles, no rales, no wheezes and diminished lung sounds bilateral Cardio Rate: regular rate Rhythm: regular rhythm Heart sounds: no murmurs GI Palpation (GI): Soft to palpation and nontender Auscultation: normal bowel sounds General: Yes no CVA tenderness Back/Spine/Pelvis Back: no CVA tenderness Thoracic/Lumbar Spine: No lumbar spinal tenderness Skin Rashes: no rashes Extrem General: Yes no clubbing, cyanosis or edema Results Reviewed Results Reviewed: Laboratory Tests 11/22/23 07:19 WBC 6.9 Hgb 12.7 Hct 36.1 L Plt Count 336 Sodium 128 L Potassium 4.0 Creatinine 0.86 Estimated GFR > 60 Fasting Glucose 98 Calcium 10.0 AST 19 ALT 11 Triglycerides 123 Cholesterol 202 H LDL Cholesterol, Calc 117 H HDL Cholesterol 61 Vitamin B12 875 25-OH Vitamin D Total 54.7 TSH 6.26 H Free T4 0.75 Assessment and Plan Assessment & Plan (1) Pure hypercholesterolemia: Code(s): E78.00 - Pure hypercholesterolemia, unspecified Plan: Results of her labs done earlier today reviewed and discussed with patient - she is advised that her LDL cholesterol has increased again from previous Reinforced low cholesterol diet Continue Rosuvastatin 5 mg QD for now Will recheck her labs and fasting lipids in 4 months for follow up (2) Benign essential hypertension: Code(s): I10 - Essential (primary) hypertension Plan: Reinforced low sodium diet - goal is systolic BP of 120 to 130 mm or less Continue Amlodipine 2.5 mg QD, HCTZ 12.5 mg QD and Losartan 100 mg QD Neurology apparently increased her Amlodipine to 5 mg QD when she was seen back in January 2023 but it looks like patient stayed on 2.5 mg QD and never went up on her dose (3) COPD (chronic obstructive pulmonary disease): Comment: 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 Kalpesh Monge at [facility] for pulmonary follow up adn is advised to mention this to Dr. Monge at her upcoming pulmonary appoitment (4) Migraine: Code(s): G43.909 - Migraine, unspecified, not intractable, without status migrainosus Qualifiers: Intractability: not intractable Migraine type: unspecified Status migrainosus presence: without status migrainosus Qualified Code(s): G43.909 - Migraine, unspecified, not intractable, without status migrainosus Plan: Continue Fioricet 50-325-40 mg TID PRN and Sumatriptan 50 mg PRN as instructed Her Nadolol 20 mg Q HS for HEBERT prophylaxis was switched to Topiramate 50 mg BID by neurology when she was seen back in January 2023 and patient states that her headaches have been better controlled since She has since continued taking her Nadolol 20 mg Q HS - can consider having her stop taking this later on She has also been advised that her recent labs showed a low sodium level, which may be a side effect of her Topiramate BUT may also be due to her increased alcohol intake lately as she admits to drinking now 2 to 3 glasses of wine every night for the past few months She has not seen neurology in almost a year now and is advised to see them again for follow up - a new referral to neurology is placed today (5) Polyarthralgia: Code(s): M25.50 - Pain in unspecified joint Plan: Continue Lyrica 75 mg BID - patient has been mostly taking this QD only as she feels very sedated when taking it BID Follow up [facility] as scheduled (6) Allergic rhinitis: Code(s): J30.9 - Allergic rhinitis, unspecified Qualifiers: Allergic rhinitis seasonality: unspecified Allergic rhinitis trigger: unspecified Qualified Code(s): J30.9 - Allergic rhinitis, unspecified Plan: Continue Cetirizine 10 mg QD PRN and Montelukast 10 mg Q PM (7) GERD without esophagitis: Code(s): K21.9 - Gastro-esophageal reflux disease without esophagitis Plan: Dietary restrictions reinforced Continue Omeprazole 40 mg QD (8) Walker's esophagus without dysplasia: Code(s): K22.70 - Walker's esophagus without dysplasia Plan: Continue PPI Tx She was supposed to follow up with GI regularly for continuing surveillance but she has not seen GI since her last EGD by Dr. Cardoza back in 2013; was referred back to GI for follow up and consideration for repeat EGD at her last visit She was seen by GI back in January 2023 but they have requested pulmonary clearance first before scheduling her for her procedures due to her COPD (9) Elevated LFTs: Code(s): R79.89 - Other specified abnormal findings of blood chemistry Plan: Her LFTs are now normal on her recent labs - were likely due to her regular alcohol intake and she was advised to cut back on her drinking Will continue to monitor her LFTs and labs regularly (10) Hyponatremia: Code(s): E87.1 - Hypo-osmolality and hyponatremia Plan: Her serum sodium is low again at 128 on her labs done earlier today She is advised that this is likely related to her frequent/regular alcohol intake - she admits to drinking 2 to 3 glasses of wine now every night for the past few months Will have her recheck her sodium level in a couple of weeks for follow up and will continue to monitor her serum sodium level regularly as well (11) Vitamin B12 deficiency: Code(s): E53.8 - Deficiency of other specified B group vitamins Plan: Continue Vitamin B12 1000 mcg QD (12) Insomnia: Code(s): G47.00 - Insomnia, unspecified Qualifiers: Insomnia type: unspecified Qualified Code(s): G47.00 - Insomnia, unspecified Plan: Sleep hygiene reinforced Continue Trazodone 50 mg Q HS PRN - Rx refilled (13) Depression: Code(s): F32.9 - Major depressive disorder, single episode, unspecified Qualifiers: Active/Remission status: currently active Depression Type: major depressive disorder Major depression episode severity: unspecified Major depression recurrence: recurrent Qualified Code(s): F33.9 - Major depressive disorder, recurrent, unspecified Plan: She has been on Venlafaxine 75 mg QD for years now and will go ahead and increase her Venlafaxine ER to 150 mg QD Will also refer her to psychiatry for further evaluation and management Plan Follow up in 4 months Orders: Orders Basic Metabolic Panel 2 Weeks E87.1 - Hypo-osmolality and hyponatremia Osmolality, Serum 2 Weeks E87.1 - Hypo-osmolality and hyponatremia Lipid Panel 4 Months E78.00 - Pure hypercholesterolemia, unspecified TSH reflex Free T4 4 Months E78.00 - Pure hypercholesterolemia, unspecified UA CC w/rflx Micro + Cult 4 Months R30.0 - Dysuria Vitamin B12 and Folate 4 Months E53.8 - Deficiency of other specified B group vitamins Complete Blood Count Auto Diff 4 Months D64.9 - Anemia, unspecified Comprehensive [place]. Panel Fast 4 Months E78.00 - Pure hypercholesterolemia, unspecified Vitamin D 25-OH Total 4 Months E55.9 - Vitamin D deficiency, unspecified Referrals Psychiatry Referral F33.9 - Major depressive disorder, recurrent, unspecified, F41.9 - Anxiety disorder, unspecified Neurology Referral G43.909 - Migraine, unspecified, not intractable, without status migrainosus Medications: Changed From venlafaxine ER 75 mg PO DAILY 90 days 90 caps 1RF To venlafaxine ER 150 mg PO DAILY 90 days 90 caps 1RF Refilled trazodone 50 mg PO BEDTIME 30 days PRN 30 tabs 3RF sleep G47.00 - Insomnia, unspecified Coding Level of Care Code Est Pt Level 4 (47910) Complex EM visit Add On G2211 Diagnoses Pure hypercholesterolemia E78.00 Benign essential hypertension I10 Chronic obstructive pulmonary disease, unspecified COPD type J44.9 COPD type: unspecified COPD Migraine without status migrainosus, not intractable, unspecified migraine type G43.909 Intractability: not intractable Migraine type: unspecified Status migrainosus presence: without status migrainosus Polyarthralgia M25.50 Allergic rhinitis, unspecified seasonality, unspecified trigger J30.9 Allergic rhinitis seasonality: unspecified Allergic rhinitis trigger: unspecified GERD without esophagitis K21.9 Walker's esophagus without dysplasia K22.70 Elevated LFTs R79.89 Hyponatremia E87.1 Vitamin B12 deficiency E53.8 Insomnia, unspecified type G47.00 Insomnia type: unspecified Episode of recurrent major depressive disorder, unspecified depression episode severity F33.9 Active/Remission status: currently active Depression Type: major depressive disorder Major depression episode severity: unspecified Major depression recurrence: recurrent
[2023-11-22 17:00] VITALS: BP 116/64; PULSE 49; O2SAT 99; BMI 23.8
== END 2023-11-22 17:21 | disposition home or self-care (01) ==
PROVIDERS: PCP Internal Medicine; Visit Provider Internal Medicine
DX: E78.00 Pure hypercholesterolemia, unspecified (principal); I10 Essential (primary) hypertension; J44.9 Chronic obstructive pulmonary disease, unspecified; G43.909 Migraine, unspecified, not intractable, without status migrainosus; M25.50 Pain in unspecified joint; J30.9 Allergic rhinitis, unspecified; K21.9 Gastro-esophageal reflux disease without esophagitis; K22.70 Barrett's esophagus without dysplasia; R79.89 Other specified abnormal findings of blood chemistry; E87.1 Hypo-osmolality and hyponatremia; E53.8 Deficiency of other specified B group vitamins; F33.9 Major depressive disorder, recurrent, unspecified; G47.00 Insomnia, unspecified
CPT/HCPCS: 99214; G2211

== ENCOUNTER 2023-12-23 15:18 | Outpatient (REF) | payer OTHER, MEDICAID, SELFPAY ==
[2023-12-23 16:48] LABS: Anion Gap 9 (12-20); Blood Urea Nitrogen 14 mg/dL (9-16); Calcium 9.7 mg/dL (8.4-10.2); Carbon Dioxide 28 mmol/L (22-29); Chloride 95 mmol/L (96-108); Estimated Glomerular Filt Rate > 60; Glucose Random 92 mg/dL (60-115); Potassium 4.2 mmol/L (3.3-5.1); Sodium 128 mmol/L (135-145)
[2023-12-23 16:51] LABS: Osmolality, Serum 269 mosm/kg (281-305)
== END 2023-12-23 15:19 | disposition home or self-care (01) ==
LOC: HO.HMGCLDS 15:18
PROVIDERS: PCP Internal Medicine; Visit Provider Internal Medicine
DX: E87.1 Hypo-osmolality and hyponatremia (principal)
CPT/HCPCS: 36415; 80048; 83930

== ENCOUNTER 2024-01-07 13:36 | Outpatient (AMB) | payer OTHER, MEDICAID, SELFPAY ==
[2024-01-07 13:53] VITALS: BP 110/70; BMI 23.8
--- NOTE | 2024-01-07 13:53 | A.OFFVIS_ITS ---
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 Compliance Paralegal Required: No Information Interpreted: non-clinical & clinical Punch Press Operator: Punch Press Operator Present (Shantal XIAO) Accompanied by: Self / Same As Patient Allergies SANGITA Inhibitors [SANGITA INHIBITORS] Allergy (Unknown, Verified 01/07/24 14:00) COUGH Ceftin Allergy (Unknown, Verified 01/07/24 14:00) unknown Sulfa (Sulfonamide Antibiotics) Allergy (Unknown, Verified 01/07/24 14:00) rash atorvastatin [Lipitor] Adverse Reaction (Unknown, Verified 01/07/24 14:00) elevated liver enzymes Post menopausal: Yes HPI Comments Details: Presenting complaining of tendon right vulvar swelling of few days' duration. [facility] Medical History Potxx-9-mmcmsqdrjwt deficiency carrier Allergic rhinitis Polyarthralgia Overweight (BMI 25.0-29.9) Depression Walker's esophagus without dysplasia GERD without esophagitis Insomnia COPD (chronic obstructive pulmonary disease) Migraine Pure hypercholesterolemia Benign essential hypertension Surgical History Hx of colonoscopy History of esophagogastroduodenoscopy (EGD) Hx of dilation and curettage H/O tubal ligation Family History Mother Hypertension Esophageal cancer Maternal Grandfather No problems noted. Father No problems noted. Other Mental health problem Substance abuse Social History Housing: House Alcohol intake: current Alcohol intake frequency: 0-2 drinks per day Alcohol type: wine Patient Tobacco Use Status: Former Tobacco user e-Cigarette/Vaping Use: Never Used Second Hand Smoke Exposure: Yes service: No Current occupational status: unemployed Cognitive needs: No Hearing needs: No Vision needs: No Female Reproductive History Menstrual Age of Menarche: 14 control method: permanent sterilization Menopause type: natural Review of Systems Const All systems reviewed & are unremarkable except as noted in HPI and below Physical Exam Vital Signs: Last Vital Signs BP 110/70 01/07/24 13:53 BMI result Body Mass Index 23.8 General: Yes no CVA tenderness External Female Exam: normal appearance of the urethra and other (Enlarged right Bartholin's gland cyst) Speculum Exam - Cervix: Cervical mass present Back/Spine/Pelvis Back: no CVA tenderness Office Procedures Incision/Drainage 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 Prep: the skin was cleaned with Betadine. Anesthesia: 3 cc of Xylocaine was used for anesthesia Guidance: palpation was used for guidance. Technique: a nicking incision was made in the skin, using an 11-blade to incise the cyst, and attempt at word catheter insertion multiple times failed. Yield: 3 cc came out. The fluid was 6 sebaceous blood-tinged. Result: This substantially decompressed the swelling. Dressing: a clean dressing was placed. Tolerance: The patient tolerated the procedure well. Disposition: The patient was sent home in stable condition. Before the procedure was started d/w patient the procedure, alternatives (do nothing), & all the risks associated with the procedure (bleeding , infection, scar tissue development, chronic dyspareunia, injury to bladder, vessels, bowels, possible need for transfusion with all its risks) then patient signed the consent and At the end the patient was instructed to call if temp>100.4, abdominal/pelvic /perineal pain, n/v and schedule a follow-up appointment within 2 weeks 53440-N&D of vulva/perineum All charges added?: Procedure code (CPT) selection complete Assessment & Plan Assessment & Plan (1) Bartholin gland cyst: Code(s): N75.0 - Cyst of Bartholin's gland Category: Medical Plan: Discussed with the patient the finding on pelvic exam showing a right Bartholin's gland cyst, recommended I&D, procedure done see note Orders: Orders Incision & Drainage DELIMBER OPERATOR Today N75.0 - Cyst of Bartholin's gland Coding Level of Care Code Procedure Only Diagnoses Bartholin gland cyst N75.0 CPT Codes Incision/Drainage DELIMBER OPERATOR - IDGYN 1: 05438-O&D of vulva/perineum ([id number])
== END 2024-01-07 14:40 | disposition home or self-care (01) ==
PROVIDERS: PCP Internal Medicine; Visit Provider Obstetrics & Gynecology
DX: N75.0 Cyst of Bartholin's gland (principal)
CPT/HCPCS: 56420

== ENCOUNTER → 2024-01-07 13:36 | Outpatient (BNVA) | payer OTHER, MEDICAID, SELFPAY | PROVIDERS: PCP Internal Medicine; Visit Provider Obstetrics & Gynecology | DX: N75.0 Cyst of Bartholin's gland (principal) | CPT/HCPCS: 56420 ==

== ENCOUNTER 2024-01-23 08:31 | Day surgery (SDC) | payer OTHER, MEDICAID, SELFPAY ==
[2024-01-21 15:12] VITALS: BMI 23.8
--- NOTE | 2024-01-22 09:44 | P.CONAN_ITS ---
Documented by User: Doreen Parisi NP 01/22/24 09:45 HPI - Anesthesia Eval Consult details Narrative: 58yo F for Upper Endoscopy and Colonoscopy Hyponatremia followed by PCP. Admits daily ETOH at last visit. To repeat DOS Pulmo optimized to proceed PMFSH Active Problems Active Problems: All Active Problems Bartholin gland cyst (Acute) Anxiety (Acute) Vitamin B12 deficiency (Acute) Dysuria (Acute) COPD exacerbation (Acute) Well woman exam (Acute) Multiple ecchymoses of both upper arms (Acute) Osteoporosis screening (Acute) Breast cancer screening by mammogram (Acute) Hyponatremia (Acute) Elevated LFTs (Acute) Allergic rhinitis (Acute) Annual physical exam (Acute) Cervical cancer screening (Acute) Colon cancer screening (Acute) Polyarthralgia (Acute) UTI (urinary tract infection) (Acute) Overweight (BMI 25.0-29.9) (Acute) Depression (Acute) Walker's esophagus without dysplasia (Acute) GERD without esophagitis (Acute) Insomnia (Acute) COPD (chronic obstructive pulmonary disease) (Acute) Migraine (Acute) Pure hypercholesterolemia (Acute) Benign essential hypertension (Acute) Past Medical History Medical History (Updated 01/07/24 @ 14:28 by Jake Harrell MD) [id number] deficiency carrier Allergic rhinitis Polyarthralgia Overweight (BMI 25.0-29.9) Depression Walker's esophagus without dysplasia GERD without esophagitis Insomnia COPD (chronic obstructive pulmonary disease) Migraine Pure hypercholesterolemia Benign essential hypertension Family History Family History Mother Hypertension Esophageal cancer Maternal Grandfather No problems noted. Father No problems noted. Other Mental health problem Substance abuse Surgical History Surgical History (Updated 01/23/24 @ 09:08 by Ellie Rae RN) Hx of tonsillectomy Hx of colonoscopy History of esophagogastroduodenoscopy (EGD) Hx of dilation and curettage H/O tubal ligation Social History Social History Housing: House Alcohol intake: current Alcohol intake frequency: 0-2 drinks per day Alcohol type: wine Patient Tobacco Use Status: Former Tobacco user e-Cigarette/Vaping Use: Never Used Second Hand Smoke Exposure: Yes Use of substances other than those prescribed or required for medical reasons: No Are you DNR?: No Advance Directives: No Advance Directives Information Provided: Yes Recently lost weight without trying: No Nutrition Risks: No Nutritional Risk Patient : No service: No Current occupational status: unemployed Cognitive needs: No Hearing needs: No Vision needs: No Meds Allergies Allergy/AdvReac Type Severity Reaction Status Date / Time Sulfa (Sulfonamide Allergy Intermediate rash Verified 01/21/24 15:02 Antibiotics) Ceftin Allergy Unknown unknown Verified 01/07/24 14:00 SANGITA Inhibitors AdvReac Intermediate COUGH Verified 01/21/24 15:02 [SANGITA INHIBITORS] atorvastatin [Lipitor] AdvReac Intermediate elevated Verified 01/21/24 15:02 liver enzymes Home Medications ?Medication ?Instructions ?Recorded ?Confirmed ?Last Taken ?Type cetirizine 10 mg tablet 10 mg PO DAILY 01/29/20 11/22/23 Unknown History montelukast 10 mg tablet 10 mg PO DAILY 01/29/20 11/22/23 Unknown History pregabalin 75 mg capsule 75 mg PO BID 03/08/21 11/22/23 Unknown History chlorhexidine gluconate 0.12 % PO 12/31/22 11/22/23 Unknown History mouthwash topiramate 50 mg tablet 50 mg PO BID 07/17/23 11/22/23 Unknown History Exam Height,Weight and Vital Signs: Height 5 ft 2 in Weight 58.967 kg Pertinent Lab Results Pertinent Lab Results: Laboratory Tests 11/22/23 07:19 WBC 6.9 Hgb 12.7 Hct 36.1 L Plt Count 336 Assessment and Plan Assessment Anesthesia Assessment: Chart Reviewed Documented by User: Jonny Brennan MD 01/23/24 09:39 [facility] Past Medical History Medical History (Updated 01/07/24 @ 14:28 by Jake Harrell MD) [id number]-[id number] deficiency carrier Allergic rhinitis Polyarthralgia Overweight (BMI 25.0-29.9) Depression Walker's esophagus without dysplasia GERD without esophagitis Insomnia COPD (chronic obstructive pulmonary disease) Migraine Pure hypercholesterolemia Benign essential hypertension Family History Family History Mother Hypertension Esophageal cancer Maternal Grandfather No problems noted. Father No problems noted. Other Mental health problem Substance abuse Family history of problems with anesthesia: No Surgical History Surgical History (Updated 01/23/24 @ 09:08 by Ellie Rae RN) Hx of tonsillectomy Hx of colonoscopy History of esophagogastroduodenoscopy (EGD) Hx of dilation and curettage H/O tubal ligation History of Problems with Anesthesia: No Social History Social History Housing: House Alcohol intake: current Alcohol intake frequency: 0-2 drinks per day Alcohol type: wine Patient Tobacco Use Status: Former Tobacco user e-Cigarette/Vaping Use: Never Used Second Hand Smoke Exposure: Yes Use of substances other than those prescribed or required for medical reasons: No Are you DNR?: No Advance Directives: No Advance Directives Information Provided: Yes Recently lost weight without trying: No Nutrition Risks: No Nutritional Risk Patient : No service: No Current occupational status: unemployed Cognitive needs: No Hearing needs: No Vision needs: No Meds Allergies Allergy/AdvReac Type Severity Reaction Status Date / Time Sulfa (Sulfonamide Allergy Intermediate rash Verified 01/21/24 15:02 Antibiotics) Ceftin Allergy Unknown unknown Verified 01/07/24 14:00 SANGITA Inhibitors AdvReac Intermediate COUGH Verified 01/21/24 15:02 [SANGITA INHIBITORS] atorvastatin [Lipitor] AdvReac Intermediate elevated Verified 01/21/24 15:02 liver enzymes Home Medications ?Medication ?Instructions ?Recorded ?Confirmed ?Last Taken ?Type cetirizine 10 mg tablet 10 mg PO DAILY 01/29/20 11/22/23 Unknown History montelukast 10 mg tablet 10 mg PO DAILY 01/29/20 11/22/23 Unknown History pregabalin 75 mg capsule 75 mg PO BID 03/08/21 11/22/23 Unknown History chlorhexidine gluconate 0.12 % PO 12/31/22 11/22/23 Unknown History mouthwash topiramate 50 mg tablet 50 mg PO BID 07/17/23 11/22/23 Unknown History Exam Airway Mallampati Class: II TM Dist: >3cm Neck ROM: Full Denture: Upper and Lower Heart: ok Lungs: ok. SpO2 99% room air. Assessment and Plan Assessment Anesthesia Assessment: Anesthesia Plan Discussed Final Anesthetic Review Family History of Problems with Anesthesia: No History of Problems with Anesthesia: No NPO: Yes ASA Class: III Final Preanesthetic Review: No Changes in Pt Med Stat, Meds/Allgs Chart Reviewed, Consent Obtained/Reviewed and Anes Risks/Benef Reviewed Patient Risk: Intermediate Procedure Risk: Intermediate Anesthetic Plan Anesthetic Plan: Agree w/ Assess. and Plan and TIVA Disposition: Standard PACU
[2024-01-23 09:04] VITALS: BMI 24.9
--- NOTE | 2024-01-23 09:21 | MHC.SHP ---
Pre-Procedural Eval Section A - 24 Hr Update-Section A only Date of Service: 01/23/24 Section B - Complete if H&P > 30 days Chief Complaint: Gastro-esophageal reflux disease without esophagit Details of Present Illness: screening colonoscopy Relevant Family History (Specify if Yes): No Relevant Social History: None Present Medications: see Short Stay Collaborative assessment Medical History: Significant History (Allergic rhinitis Polyarthralgia Overweight (BMI 25.0-29.9) Depression Walker's esophagus without dysplasia GERD without esophagitis Insomnia COPD (chronic obstructive pulmonary disease) Migraine Pure hypercholesterolemia Benign essential hypertension) History of Previous Operations: Relevant previous surgery/procedure and date(s) (Hx of colonoscopy History of esophagogastroduodenoscopy (EGD) Hx of dilation and curettage H/O tubal ligation) Allergies: Allergies Allergy/AdvReac Type Severity Reaction Status Date / Time Sulfa (Sulfonamide Allergy Intermediate rash Verified 01/21/24 15:02 Antibiotics) Ceftin Allergy Unknown unknown Verified 01/07/24 14:00 SANGITA Inhibitors AdvReac Intermediate COUGH Verified 01/21/24 15:02 [SANGITA INHIBITORS] atorvastatin [Lipitor] AdvReac Intermediate elevated Verified 01/21/24 15:02 liver enzymes Review of Systems Sugical H&P ROS: Negative: Constitution, Cardiovascular, Respiratory, Neurological, Psychiatric, Hem-Onc, Allergic/Immunologic, Gastrointestinal, Genitourinary, Musculoskeletal, Integumentary, Endocrine and Eyes/Ears/Nose/Throat Exam Surgical H&P Exam: Normal: HEENT, Normal: Heart, Normal: Lungs, Normal: Extremities, Normal: Abdomen, Normal: Skin and Normal: Neurological Plan Diagnosis/Plan: Unchanged I have reviewed the history and physical and performed a pertinent physical examination on my patient. No changes have occurred unless specified. Time Spent With Patient Time: Total time managing care of this patient today ____ minutes.
[2024-01-23 09:25] VITALS: BP 109/64; PULSE 58; RESP 16; TEMP 36.9; O2SAT 99
[2024-01-23] MEDS: Lactated Ringers 1,000 ML 100 ML IVCONT (09:35)
--- NOTE | 2024-01-23 09:53 | P.OPN-COLO_ITS ---
Colonoscopy Operative Note Operative Note Date of Service: 01/23/24 Narrative: Operative Information Procedure Description: EGD, Colonoscopy Indication: hx of barretts, screening Anesthesia: MAC FLEXIBLE TRANSORAL UPPER GASTROINTESTINAL ENDOSCOPY AND COLONOSCOPY PROCEDURE NOTE UPPER ENDOSCOPY Consent: Indications for the procedure and potential complications of bleeding, perforation, reaction to medications and missed diagnosis were discussed with the patient and informed consent was obtained. Instrument: Olympus GIF H 190 J mid size upper endoscope Monitoring: Vital signs and clinical assessment, continuous EKG monitoring, Pulse oximetry, Carbon Dioxide monitoring and blood pressure monitoring were done throughout the procedure. Procedure: The patient was placed in the left lateral decubitis position and pre-procedure medications were administered and a bite block was placed. The endoscope was inserted into the mouth and advanced under direct vision to the third part of duodenum. A careful inspection was made as the upper endoscope was withdrawn including a retroflexed examination of the proximal stomach; Findings and interventions are described below. Findings: Larynx:normal Esophagus: GE junction at 37 cm, diaphragm hiatus at 37 cm, salmon pink tissue noted consistent with Barretts, PRague classification D9I5--LIOM taken and biopsies Stomach: Normal mucosa. Grade 2 flap valve on retroflexed examination of the cardia. Duodenum: Normal bulb and descending duodenum, Intervention: Biopsies as noted above, brushings COLONOSCOPY Instrument: Olympus variable stiffness pediatric scope 190L Colonoscopy Monitoring: Vital signs and clinical assessment, continuous EKG monitoring, Pulse oximetry, Carbon Dioxide monitoring and blood pressure monitoring were done throughout the procedure. Colon withdrawal time was 13 minutes. Procedure: The patient was placed in the left lateral decubitis position and pre-procedure medications were administered. After a digital rectal examination of the ano-rectum, the video colonoscope was inserted into the rectum and advanced through the colon to the cecum/TI. The colonoscope was slowly withdrawn in a retrograde panoramic fashion and the colon mucosa was carefully examined including a retroflexed view of the rectum. Findings and interventions are described below. Procedure Difficulty:moderate Findings: Terminal Ileum-normal Cecum:normal Ascending Colon: normal Transverse Colon - x 2 sessile polyps 6-9 mm removed with cold snare, one was not recovered Descending Colon: 4-6 mm sessile polyp removed with cold forceps Sigmoid Colon: mild diverticulosis Rectum: Retroflexion with small internal hemorrhoids, grade I Anorectum - normal Colon preparation: [place] Bowel Preparation Scale Right colon; 2 Transverse colon: 2 Left colon; 2 (0 = Unprepared colon segment with mucosa not seen due to solid stool that cannot be cleared. 1 = Portion of mucosa of the colon segment seen, but other areas of the colon segment not well seen due to staining, residual stool and/or opaque liquid. 2 = Minor amount of residual staining, small fragments of stool and/or opaque liquid, but mucosa of colon segment seen well. 3 = Entire mucosa of colon segment seen well with no residual staining, small fragments of stool or opaque liquid) Impression and Post Procedure Diagnosis: Endoscopy Findings: Barretts Colonoscopy Findings: diverticulosis colon polyps internal hemorrhoids Plan: Await Pathology results Repeat Colonoscopy in 5 years due to polyps or earlier if clinically indicated High fiber diet leaflet avoid straining at stool, epsom salts and sitz bath, anusol supps or cream repeat EGD 5 yrs or earlier if clinically indicated Above findings were reviewed with the patient and relevant handouts were provided if indicated.
[2024-01-23 10:00] LABS: Anion Gap 12 (12-20); Carbon Dioxide 21 mmol/L (22-29); Chloride 98 mmol/L (96-108); Sodium 127 mmol/L (135-145)
[2024-01-23 10:22] VITALS: BP 88/41; PULSE 53; RESP 16; TEMP 36.1; O2SAT 96
[2024-01-23 10:39] VITALS: BP 121/65; PULSE 58; RESP 17; TEMP 36.1; O2SAT 100
== END 2024-01-23 11:22 | disposition home or self-care (01) ==
PROVIDERS: Nurse Practitioner; PCP Internal Medicine; Visit Provider Internal Medicine Gastroenterology
PROC: (CPT 43239; principal; 2024-01-23 09:20)
DX: K22.70 Barrett's esophagus without dysplasia (principal); K21.9 Gastro-esophageal reflux disease without esophagitis; Z12.11 Encounter for screening for malignant neoplasm of colon; D12.3 Benign neoplasm of transverse colon; K57.30 Diverticulosis of large intestine without perforation or abscess without bleeding; K64.0 First degree hemorrhoids; I10 Essential (primary) hypertension; E78.00 Pure hypercholesterolemia, unspecified; J44.9 Chronic obstructive pulmonary disease, unspecified; Z79.899 Other long term (current) drug therapy
CPT/HCPCS: 43239; 45385; 45380; 36415; 80051; 88305; J2003; J2704

== ENCOUNTER → 2024-01-23 08:31 | Outpatient (BNV) | payer OTHER, MEDICAID, SELFPAY | PROVIDERS: PCP Internal Medicine; Visit Provider Internal Medicine Gastroenterology | DX: Z12.11 Encounter for screening for malignant neoplasm of colon (principal); D12.3 Benign neoplasm of transverse colon; K63.5 Polyp of colon; K57.30 Diverticulosis of large intestine without perforation or abscess without bleeding; K64.0 First degree hemorrhoids; K22.70 Barrett's esophagus without dysplasia | CPT/HCPCS: 43239; 45380; 45385 ==

== ENCOUNTER 2024-01-28 13:49 | Outpatient (AMB) | payer OTHER, MEDICAID, SELFPAY ==
--- NOTE | 2024-01-28 13:56 | A.OFFVIS_ITS ---
Intake Visit Reasons: Bartholin check/need to sign consent Agriculture Department Chair: Agriculture Department Chair Present (Lizet) Allergies Sulfa (Sulfonamide Antibiotics) Allergy (Intermediate, Verified 01/28/24 13:57) rash Ceftin Allergy (Unknown, Verified 01/28/24 13:57) unknown SANGITA Inhibitors [SANGITA INHIBITORS] Adverse Reaction (Intermediate, Verified 01/28/24 13:57) COUGH atorvastatin [Lipitor] Adverse Reaction (Intermediate, Verified 01/28/24 13:57) elevated liver enzymes HPI Comments Details: Presenting few weeks post I and D of the right Bartholin's gland cyst the patient did not experience resolution of her right gland enlargement, minimal drainage came out after I&D [facility] Medical History Ohlzh-[id number]-hchdsifctow deficiency carrier Allergic rhinitis Polyarthralgia Overweight (BMI 25.0-29.9) Depression 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 Father No problems noted. Other Mental health problem Substance abuse Social History Housing: House Alcohol intake: current Alcohol intake frequency: 0-2 drinks per day Alcohol type: wine Patient Tobacco Use Status: Former Tobacco user e-Cigarette/Vaping Use: Never Used Second Hand Smoke Exposure: Yes service: No Current occupational status: unemployed Cognitive needs: No Hearing needs: No Vision needs: No Female Reproductive History Menstrual Age of Menarche: 14 Review of Systems Const All systems reviewed & are unremarkable except as noted in HPI and below Physical Exam General: Yes no CVA tenderness External Female Exam: normal appearance of the urethra and other (Enlarged right Bartholin's gland) Speculum Exam - Vagina: normal appearance of the vagina, normal palpation, no lesions and no masses Speculum Exam - Cervix: normal appearance of the cervix, normal palpation, no lesions, no masses and nontender Bimanual exam- vagina & uterus: normal bimanual exam, normal palpation, uterine size normal, normal palpation, uterine shape normal, No Cervical tenderness present and non-tender Bimanual Exam- Adnexa, other: normal adnexae Back/Spine/Pelvis Back: no CVA tenderness Assessment & Plan Assessment & Plan (1) Disorder of Bartholin gland: Comment: Residual enlargement of right Bartholin's gland after I&D Code(s): N75.9 - Disease of Bartholin's gland, unspecified Category: Medical Plan: Discussed with the patient the finding on physical exam residual enlargement of the right Bartholin's gland after I&D, recommended ultrasound to differentiate Bartholin's gland cyst versus enlargement, if fluid is identified by ultrasound will consider another I and D if not will refer to Gyne Onc rule out adenocarcinoma and possible Bartholin's gland excision. Instructions given the patient to schedule an ultrasound follow-up appointment within 2 weeks. All questions answered, the patient verbalized understanding Orders: Orders US pelvic limited Today N75.9 - Disease of Bartholin's gland, unspecified Coding Level of Care Code Est Pt Level 3 (67412) Diagnoses Disorder of Bartholin gland N75.9
== END 2024-01-28 14:58 | disposition home or self-care (01) ==
LOC: HO.HWS 13:49
PROVIDERS: PCP Internal Medicine; Visit Provider Obstetrics & Gynecology
DX: N75.9 Disease of Bartholin's gland, unspecified (principal)
CPT/HCPCS: 99213

== ENCOUNTER → 2024-01-28 13:49 | Outpatient (BNVA) | payer OTHER, MEDICAID, SELFPAY | PROVIDERS: PCP Internal Medicine; Visit Provider Obstetrics & Gynecology ==

== ENCOUNTER 2024-02-05 10:20 | Outpatient (AMB) | payer OTHER, MEDICAID, SELFPAY ==
[2024-02-05 10:21] VITALS: BP 124/64; PULSE 54; O2SAT 99; BMI 24.5
--- NOTE | 2024-02-05 10:21 | A.OFFVIS_ITS ---
Vital Signs 02/05/24 10:21 Height 5 ft 2 in Weight 134 lb 0.657 oz BMI 24.5 BP 124/64 Blood Pressure Location Rt brachial Position Sitting Pulse 54 Pulse Source Pulse Oximeter Pulse Oximetry (%) 99 Oxygen Delivery Method Room Air Intake Visit Reasons: s/p egd/colon Intake Note: Relevant Flags or Indicators ? Requires Experimental Mechanic Electrical? Dawn Wharton presents in office today for a scheduled s/p FUV. CC; No recent labs, diagnostics, or med orders placed. ? Relevant GI Sx as reported per pt? None ? Hx of any recent surgeries? 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 Please call her cone baker machine to clear her patient has COPD. Patient reports that her son who is a EMT checked today saturation level and it was low. Denies any issues with anesthesia in the past.? Denies any history of sleep apnea.? No history infectious diseases in the past or present.? Not on any anticoagulation therapy.? ?History of polyps on her 1st colonoscopy at [facility]. Patient is overdue for colonoscopy. Diagnosed with Walker's in 2018 no follow-up endoscopy done. Will send patient for upper endoscopy to recheck for Walker's, gastritis, esophagitis. Patient reports that her mom of esophageal cancer at age of 63. Patient is currently taking omeprazole 40 mg daily and her symptoms are suppressed for the most part. Patient denies melena, hematochezia, unintentional weight loss or ribbon like stools.? Discussed at length the pre-procedure,? prep, diet & medications as well as what to expect prior, during and after the procedure.?? Stressed the importance of good bowel prep. ?Recommended the use of Vaseline or Calmoseptine OTC & baby wipes with bowel movements to promote comfort.? ?Patient verbalizes understanding and agrees to plan of care.? She was given the opportunity to ask questions and all questions answered.? We will see her after the procedure.? Medications New bisacodyl (Dulcolax (bisacodyl)) take 2 tabs at noon the day before your colonoscopy 10 mg (2 x 5 mg) PO ONCE 2 tabs 0RF 1 day Z12.11 polyethylene glycol 3350 (Miralax) As directed by gastroenterology department at [facility] 238 grams PO ONCE 238 grams 0RF Z12.11 UPPER ENDOSCOPY AND COLONOSCOPY Findings: Larynx:normal Esophagus: GE junction at 37 cm, diaphragm hiatus at 37 cm, salmon pink tissue noted consistent with Barretts, PRague classification [id number]--RVVR taken and biopsies Stomach: Normal mucosa. Grade 2 flap valve on retroflexed examination of the cardia. Duodenum: Normal bulb and descending duodenum, Intervention: Biopsies as noted above, brushings Findings: Terminal Ileum-normal Cecum:normal Ascending Colon: normal Transverse Colon - x 2 sessile polyps 6-9 mm removed with cold snare, one was not recovered Descending Colon: 4-6 mm sessile polyp removed with cold forceps Sigmoid Colon: mild diverticulosis Rectum: Retroflexion with small internal hemorrhoids, grade I Anorectum - normal Colon preparation: Aurora Bowel Preparation Scale Right colon; 2 Transverse colon: 2 Left colon; 2 (0 = Unprepared colon segment with mucosa not seen due to solid stool that cannot be cleared. 1 = Portion of mucosa of the colon segment seen, but other areas of the colon segment not well seen due to staining, residual stool and/or opaque liquid. 2 = Minor amount of residual staining, small fragments of stool and/or opaque liquid, but mucosa of colon segment seen well. 3 = Entire mucosa of colon segment seen well with no residual staining, small fragments of stool or opaque liquid) Impression and Post Procedure Diagnosis: Endoscopy Findings: Barretts Colonoscopy Findings: diverticulosis colon polyps internal hemorrhoids Plan: Await Pathology results Repeat Colonoscopy in 5 years due to polyps or earlier if clinically indicated High fiber diet leaflet avoid straining at stool, epsom salts and sitz bath, anusol supps or cream repeat EGD 5 yrs or earlier if clinically indicated PATHOLOGY RESULTS Diagnosis A. Esophagus, distal, biopsy: - Walker esophagus with background moderate chronic inactive inflammation. - No dysplasia seen. - Squamous mucosa within normal limits. B. Colon, transverse, polypectomies: Tubular adenoma (one); negative for high- grade dysplasia or carcinoma. C. Colon, descending, polypectomy: Colonic mucosa with prominent lymphoid aggregate TODAY'S VISIT: Patient is here and to discuss upper endoscopy and colonoscopy results. Patient denies any ill effects from the prep, anesthesia or procedure itself. Patient reports that she has been feeling fairly well. Takes omeprazole 40 mg daily and her symptoms are suppressed for the most part. However patient does report occasional acid reflux depending on what she eats. Patient reports that she has been on omeprazole for over 5 years. Patient denies dyspepsia, dysphagia or odynophagia, however patient does admit that occasionally she might have trouble swallowing her medications especially if she takes more than 2 as refills all at once. Patient denies any melena, hematochezia. Upper endoscopy and colonoscopy results discussed with patient patient was found to have Barretts esophagus without dysplasia. Tubular adenoma found. Recommendation for colonoscopy in 5 years endoscopy 3-5 years and sooner if symptomatic. Patient reports that she moves her bowels well [facility] Medical History (Updated 02/05/24 @ 10:59 by Sweta Castillo, 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 Father No problems noted. Other Mental health problem Substance abuse Social History Housing: House Alcohol intake: current Alcohol intake frequency: 0-2 drinks per day Alcohol type: wine Patient Tobacco Use Status: Former Tobacco user e-Cigarette/Vaping Use: Never Used Second Hand Smoke Exposure: Yes service: No Current occupational status: unemployed Cognitive needs: No Hearing needs: No Vision needs: No Female Reproductive History Menstrual Age of Menarche: 14 Review of Systems Const Denies weight gain and Denies weight loss ENT Reports no additional complaints, Reports dysphagia and Denies odynophagia Card Reports no additional complaints Resp Reports no additional complaints GI Denies abdominal pain, Denies belching, Denies melena, Denies bloating, Denies change in bowel habits, Reports dysphagia, Denies excessive flatus, Denies dyspepsia, Reports heartburn, Denies diarrhea, Denies loose stools, Denies na usea, Denies odynophagia and Denies vomiting Musc Reports no additional complaints Neuro Reports no additional complaints Psych Reports no additional complaints Endo Reports no additional complaints Physical Exam Vital Signs: Last Vital Signs Pulse 54 02/05/24 10:21 BP 124/64 02/05/24 10:21 Pulse Ox 99 02/05/24 10:21 Oxygen Delivery Method Room Air 02/05/24 10:21 BMI result Body Mass Index 24.5 Const General: healthy appearing, no acute distress and well developed Nutritional Appearance: well nourished Orientation/consciousness: patient oriented x3 HEENT Head: Yes normal to inspection, Yes normocephalic and Yes atraumatic Face and sinus: Yes normal facial exam Mouth: Normal oral and palatal mucosa present Throat: Yes posterior oropharynx normal, Yes tonsils normal and Yes uvula midline Eyes General: appearance normal, both eyes and all related structures Neck Neck: Yes normal visual inspection, Yes full ROM and Yes trachea midline Thyroid: Thyroid normal Resp Effort & Inspection: normal respiratory effort, able to speak in complete sentences, no tracheal deviation and symmetric chest movement Auscultation: clear to auscultation bilaterally Cardio Rate: regular rate Heart sounds: S1 normal heart sound present and S2 normal heart sound present GI Inspection: Yes normal to inspection and No distended Palpation (GI): Soft to palpation, not firm, nontender and No hepatosplenomegaly present Auscultation: normal bowel sounds General: Yes no CVA tenderness Back/Spine/Pelvis Back: no CVA tenderness Skin General skin exam: elasticity normal, turgor normal and dry skin Neuro General: patient oriented x3 Psych Appearance: grossly normal Mental Status: mental status grossly normal Assessment & Plan Assessment & Plan (1) Walker's esophagus without dysplasia: Code(s): K22.70 - 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 Discussed with patient avoiding dietary triggers and late night snacking. Staying upright for minimum 3 hours after meals discussed with patient. Patient can switch PPI to pantoprazole. Colonoscopy in 5 years, endoscopy will monitor and I would recommended in 3 years due to family history of esophageal cancer. Increase fiber intake in add probiotic to her diet. Mild diverticulosis seen in sigmoid colon. Patient will return in 3 months to re-evaluate treatment with pantoprazole. Patient will call our office if she will have any GI concerning symptoms. She is agreeable to this plan and verbalizes understanding of instructions. She was given the opportunity to ask questions and all questions answered. Thank you for allowing me to participate in her care Medications: New pantoprazole take one tablet half an hour before breakfast 40 mg PO DAILY 30 tabs 4RF K21.9 - Gastro-esophageal reflux disease without esophagitis Discontinued omeprazole Discontinued Reason: Doctor's Order 40 mg PO DAILY 90 caps 3RF Coding Level of Care Code Est Pt Level 4 (75001) Complex EM visit Add On G2211 Diagnoses Walker's esophagus without dysplasia K22.70 GERD without esophagitis K21.9 Tubular adenoma of colon D12.6 Status post colonoscopy Z98.890 Time Spent (min) 35 Comment 20 minutes spent with patient and additional 15 minutes spent reviewing her records
== END 2024-02-05 10:50 | disposition home or self-care (01) ==
PROVIDERS: PCP Internal Medicine; Visit Provider Nurse Practitioner Family
DX: K22.70 Barrett's esophagus without dysplasia (principal); K21.9 Gastro-esophageal reflux disease without esophagitis; D12.6 Benign neoplasm of colon, unspecified; Z98.890 Other specified postprocedural states
CPT/HCPCS: 99214; G2211

== ENCOUNTER → 2024-02-05 10:20 | Outpatient (BNVA) | payer OTHER, MEDICAID, SELFPAY | PROVIDERS: PCP Internal Medicine; Visit Provider Nurse Practitioner Family ==

== ENCOUNTER 2024-02-18 11:34 | Outpatient (REF) | payer OTHER, MEDICAID, SELFPAY | END 2024-02-18 11:35 | disposition home or self-care (01) | LOC: HO.US 11:34 | PROVIDERS: PCP Internal Medicine; Visit Provider Obstetrics & Gynecology | DX: N75.9 Disease of Bartholin's gland, unspecified (principal) | CPT/HCPCS: 76857 ==

== ENCOUNTER 2024-05-06 11:28 | Outpatient (AMB) | payer OTHER, MEDICAID, SELFPAY ==
--- NOTE | 2024-05-06 11:30 | MHC.OFFVIS ---
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 Discussed with patient avoiding dietary triggers and late night snacking. Staying upright for minimum 3 hours after meals discussed with patient. Patient can switch PPI to pantoprazole. Colonoscopy in 5 years, endoscopy will monitor and I would recommended in 3 years due to family history of esophageal cancer. Increase fiber intake in add probiotic to her diet. Mild diverticulosis seen in sigmoid colon. Patient will return in 3 months to re-evaluate treatment with pantoprazole. Patient will call our office if she will have any GI concerning symptoms. She is agreeable to this plan and verbalizes understanding of instructions. She was given the opportunity to ask questions and all questions answered. ? Thank you for allowing me to participate in her care Medications New pantoprazole take one tablet half an hour before breakfast 40 mg PO DAILY 30 tabs 4RF K21.9 Discontinued omeprazole Discontinued Reason: Doctor's Order 40 mg PO DAILY 90 caps 3RF TODAY'S VISIT Patient is here today for follow-up. Patient reports that she is doing better on pantoprazole. Patient denies any dyspepsia, dysphagia or odynophagia. Depending on what she eats she will might have acid reflux, however less often then in the past. Diagnosed with Barretts in the past. Upper endoscopy was done just last year as well as colonoscopy. Recommendation for colonoscopy in 5 years due to tubular adenoma, however we should do endoscopy sooner than 5 years as patient has a family history of esophageal cancer. Patient denies melena, hematochezia, unintentional weight loss or ribbon like stools. Patient reports to have good appetite. 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 Father No problems noted. Other Mental health problem Substance abuse Social History Housing: House Alcohol intake: current Alcohol intake frequency: 0-2 drinks per day Alcohol type: wine Patient Tobacco Use Status: Former Tobacco user e-Cigarette/Vaping Use: Never Used Second Hand Smoke Exposure: Yes service: No Current occupational status: unemployed Cognitive needs: No Hearing needs: No Vision needs: No Female Reproductive History Menstrual Age of Menarche: 14 Review of Systems Const Denies weight gain and Denies weight loss ENT Reports no additional complaints, Denies dysphagia and Denies odynophagia Card Reports no additional complaints Resp Reports no additional complaints GI Denies abdominal pain, Denies belching, Denies melena, Denies bloating, Denies change in bowel habits, Denies dysphagia, Denies excessive flatus, Denies dyspepsia, Reports heartburn (Occasional), Denies diarrhea, Denies loose stools, Denies nausea, Denies odynophagia and Denies vomiting Reports no additional complaints Musc Reports no additional complaints Neuro Reports no additional complaints Psych Reports no additional complaints Endo Reports no additional complaints Physical Exam Vital Signs: Last Vital Signs Pulse 65 05/06/24 11:34 BP 137/57 L 05/06/24 11:34 Pulse Ox 100 05/06/24 11:34 Oxygen Delivery Method Room Air 05/06/24 11:34 BMI result Body Mass Index 24.7 Const General: healthy appearing, no acute distress and well developed Nutritional Appearance: well nourished Orientation/consciousness: patient oriented x3 HEENT Head: Yes normal to inspection, Yes normocephalic and Yes atraumatic Face and sinus: Yes normal facial exam Mouth: Normal oral and palatal mucosa present Throat: Yes posterior oropharynx normal, Yes tonsils normal and Yes uvula midline Eyes General: appearance normal, both eyes and all related structures Neck Neck: Yes normal visual inspection, Yes full ROM and Yes trachea midline Thyroid: Thyroid normal Resp Effort & Inspection: normal respiratory effort, able to speak in complete sentences, no tracheal deviation and symmetric chest movement Auscultation: clear to auscultation bilaterally Cardio Rate: regular rate Heart sounds: S1 normal heart sound present and S2 normal heart sound present GI Inspection: Yes normal to inspection and No distended Palpation (GI): Soft to palpation, not firm, nontender and No hepatosplenomegaly present Auscultation: normal bowel sounds General: Yes no CVA tenderness Back/Spine/Pelvis Back: no CVA tenderness Skin General skin exam: elasticity normal, turgor normal and dry skin Neuro General: patient oriented x3 Psych Appearance: grossly normal Mental Status: mental status grossly normal Assessment & Plan Assessment & Plan (1) Tubular adenoma of colon: Code(s): D12.6 - Benign neoplasm of colon, unspecified Category: Medical (2) Walker's esophagus without dysplasia: Code(s): K22.70 - Walker's esophagus without dysplasia Category: Medical (3) GERD without esophagitis: Code(s): K21.9 - Gastro-esophageal reflux disease without esophagitis Category: Medical Plan Continue treatment with PPI. Avoid dietary triggers and late night snacking. Staying upright for minimum 3 hours after meals discussed with patient. Increase fluid intake and activity to promote better bowel motility. Patient will return to the office in 6 months. She will call us if she will have any GI concerning symptoms. Patient is agreeable to this plan and verbalizes understanding of instructions. She was given the opportunity to ask questions and all questions answered. Thank you for allowing me to participate in her care Coding Level of Care Code Est Pt Level 4 (47428) Complex EM visit Add On G2211 Diagnoses Tubular adenoma of colon D12.6 Walker's esophagus without dysplasia K22.70 GERD without esophagitis K21.9 Time Spent (min) 35 Comment 25 minutes spent with patient and additional 10 minutes spent reviewing her records
[2024-05-06 11:34] VITALS: BP 137/57; PULSE 65; O2SAT 100; BMI 24.7
--- OUTSIDE RECORDS SUMMARY | 2024-05-06 12:10 | XMS_ITS | Clinical Summary ---
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 3 Active albuterol (2.5 MG/3ML) 0.083% nebulizer solution INHALE 3 ML 4 TIMES A DAY NEEDED FOR SHORTNESS OF BREATH OR WHEEZING FOR 30 DAYS 3 Active omeprazole (PriLOSEC) [address] capsule Take 40 mg by mouth. 5 Active nadolol (Corgard) 20 MG tablet Take 20 mg by mouth. 0 Active montelukast (Singulair) 10 MG tablet TAKE 1 TABLET BY MOUTH DAILY IN THE EVENING 3 Active pregabalin (Lyrica) 75 MG capsule Take 75 mg by mouth 2 times daily. 3 Active acetaminophen (Tylenol) 500 MG tablet Take 1 tablet (500 mg) by mouth every 6 (six) hours if needed for mild pain for up to 20 doses. 20 tablet 4 Active ibuprofen 600 MG tablet Take 1 tablet (600 mg) by mouth every 6 (six) hours if needed for mild pain for up to 20 doses. 20 tablet 4 Active Active Problems Problem Noted Date Diagnosed Date Retained dental root 08/23/2023 History of tooth extraction 06/03/2023 Severe dental caries 06/27/2022 Dental abscess 06/27/2022 Social History Tobacco Use Types Packs/Day Years Used Date Smoking Tobacco: Never Passive Smoke Exposure: Never Smokeless Tobacco: Never Tobacco Cessation:Counseling Given: No Alcohol Use Standard Drinks/Week Comments Never 0 (1 standard drink = 0.6 oz pur e alcohol) Comments Unknown Sex and Gender Information Value Date Recorded Sex Assigned at Female 06/27/2022 8:47 AM EDT Legal Sex Female 8:40 AM EDT Gender Identity Female 06/27/2022 8:47 AM EDT Sexual Orientation Choose not to disclose 2022 8:47 AM EDT Last Filed Vital Signs Vital Sign Reading Time Taken Comments Blood Pressure 128/78 08/23/2023 8:21 AM EDT Pulse 70 08/23/2023 8:21 AM EDT Temperature - - Respiratory Rate - - Oxygen Saturation - - Inhaled Oxygen Concentration - - Weight - - Height - - Body Mass Index - - Plan of Treatment Health Maintenance Due Date Last Done Comments CT Colonography 1964 Colonoscopy 1964 Colorectal Cancer Screening 1964 Dental Oral Exam 1964 Dental Prophylaxis 1964 Dental X-Ray: Bitewings 1964 Depression Screening 1964 FIT DNA/Cologuard 1964 FIT 1964 FOBT 1964 HIV Screening 1964 Lipid Panel 1964 SDOH Screening 1964 Sigmoidoscopy 1964 Alcohol/Substance Use Screening 1976 Hepatitis C Screening 1982 Pap Smear 1985 Cervical Cancer Screening 1994 HPV/Cotest 1994 Mammogram 2004 Zoster Vaccines (1 of 2) 2014 Pneumococcal Vaccine: 50+ Years (2 of 2 - PCV) 09/06/2019 09/05/2018 Pneumococcal Vaccine: Pediatrics (0 to 5 Years) and At-Risk Patients (6 to 49) Years) (2 of 2 - PCV) 09/06/2019 09/05/2018 COVID-19 Vaccine (3 - season) 2023 06/26/2020, 06/04/2020 Influenza Vaccine (#1) 2023 , 01/16/2018, 02/20/2017, Additional history exists RSV Patients and Patients Aged 60 years or older (1 - Risk 60-74 years 1-dose series) 2024 Tobacco Screening 08/22/2024 08/23/2023 DTaP/Tdap/Td Vaccines (2 - Td or Tdap) 01/02/2026 01/03/2016 Dental X-Ray: Full Mouth 03/29/2026 03/28/2023, 06/16 HIB Vaccines Aged Out No longer eligi ble based on patient's age to complete this topic HPV Vaccines Aged Out No longer eligi ble based on patient's age to complete this topic Hepatitis A Vaccines Aged Out No long er eligible based on patient's age to complete this topic Hepatitis B Vaccines Aged Out No long er eligible based on patient's age to complete this topic IPV Vaccines Aged Out No longer eligi ble based on patient's age to complete this topic Meningococcal Vaccine Aged Out No yonis rowdy eligible based on patient's age to complete this topic RSV under 20 months Aged Out No longe r eligible based on patient's age to complete this topic Rotavirus Vaccines Aged Out No longer eligible based on patient's age to complete this topic Procedures Procedure Name Priority Date/Time Associated Diagnosis Comments PANORAMIC RADIOGRAPHIC IMAGE Routine 03/28/2023 2:00 PM EST from Last 3 Months or Most Recently Relevant to Health Maintenance Insurance [facility] MEDICAID STAND ADULT
--- OUTSIDE RECORDS SUMMARY | 2024-05-06 12:10 | XMS_ITS | Encounter Summary ---
Author Organization [employer] Address [address] [place] [address] 7 [place] [address] Care Team Providers Care Back Hand Name Role Phone Unavailable Primary Care Provider Unavailabl e Reason for Visit * Reason Comments Med Refill Encounter Details Date Type Department Care Team (Late st Contact Info) Description 02/19/2023 Refill [facility] [address] [place], [place] [phone] Chente El DDS [address] [place] [address] Social History Tobacco Use Types Packs/Day Years Used Date Smoking Tobacco: Never Passive Smoke Exposure: Never Smokeless Tobacco: Never Alcohol Use Standard Drinks/Week Comments Never 0 (1 standard drink = 0.6 oz pur e alcohol) Comments Unknown Sex and Gender Information Value Date Recorded Sex Assigned at Female 06/27/2022 8:47 AM EDT Legal Sex Female 8:40 AM EDT Gender Identity Female 06/27/2022 8:47 AM EDT Sexual Orientation Choose not to disclose 2022 8:47 AM EDT documented as of this encounter Miscellaneous Notes * Telephone Encounter - Austen Franco DMD - 02/19/2023 10:07 AM EST Approving, but needs appt for additional refills. documented in this encounter Plan of Treatment Not on file documented as of this encounter Visit Diagnoses Not on filedocumented in this encounter
== END 2024-05-06 11:57 | disposition home or self-care (01) ==
PROVIDERS: PCP Internal Medicine; Visit Provider Nurse Practitioner Family
DX: D12.6 Benign neoplasm of colon, unspecified (principal); K22.70 Barrett's esophagus without dysplasia; K21.9 Gastro-esophageal reflux disease without esophagitis
CPT/HCPCS: 99214; G2211

== ENCOUNTER 2024-05-19 14:27 | Outpatient (AMB) | payer OTHER, MEDICAID, SELFPAY ==
--- NOTE | 2024-05-19 14:28 | A.OFFVIS_ITS ---
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 Complaining of vaginal odor on and off. No associated discharge or itching. 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 Father No problems noted. Other Mental health problem Substance abuse Social History Housing: House Alcohol intake: current Alcohol intake frequency: 0-2 drinks per day Alcohol type: wine Patient Tobacco Use Status: Former Tobacco user e-Cigarette/Vaping Use: Never Used Second Hand Smoke Exposure: Yes Patient : No service: No Current occupational status: unemployed Cognitive needs: No Hearing needs: No Vision needs: No Female Reproductive History Menstrual Age of Menarche: 14 Total pregnancies: 6 Full term: 3 Ab spontaneous: 3 Date of last pap smear: 12/31/22 (negative pap smear, negative hpv) Date of Mammogram: 12/04/22 (bi rad 1) Date of last Bone Density Screenin12/04/22 Review of Systems Const All systems reviewed & are unremarkable except as noted in HPI and below Card Reports as per HPI Resp Reports as per HPI GI Reports as per HPI and Reports no additional complaints Reports as per HPI Physical Exam Vital Signs: Last Vital Signs BP 132/74 05/19/24 14:37 BMI result Body Mass Index 24.9 Const General: cooperative, healthy appearing and comfortable Chest Chest palpation & inspection: normal inspection of the chest and normal palpation of entire chest wall Breast/axilla inspection: normal inspection of the breasts and normal inspection of the axillae Breast/axilla palpation: normal palpation of the breasts, normal palpation of the axillae and no axillary lymphadenopathy Resp Effort & Inspection: normal respiratory effort Auscultation: clear to auscultation bilaterally Percussion: percussion normal Cardio Palpation: normal PMI Rate: regular rate Rhythm: regular rhythm Heart sounds: no murmurs and no rubs Peripheral pulses: Peripheral pulses 2+ throughout GI Inspection: Yes normal to inspection Palpation (GI): Soft to palpation, nontender, no guarding, not rigid and No hepatosplenomegaly present Percussion: Yes normal to percussion Auscultation: normal bowel sounds Rectal Exam - Female: deferred General: Yes bladder normal to palpation External Female Exam: No lesion Speculum Exam - Vagina: normal appearance of the vagina, normal palpation, normal vaginal discharge and not erythematous Speculum Exam - Cervix: normal appearance of the cervix and normal palpation Bimanual exam- vagina & uterus: normal bimanual exam, normal palpation, uterine size normal, bladder normal to palpation, consistency normal and normal palpation Bimanual Exam- Adnexa, other: normal adnexae, no masses and no tenderness Assessment & Plan Assessment & Plan (1) Well woman exam: Code(s): Z01.419 - Encounter for gynecological examination (general) (routine) without abnormal findings Category: Medical Plan: Co testing not indicated this year. Counseled the patient about the recommended dietary allowance of 1200 mg of Calcium & 600 IU of vitamin D. Mammogram ordered. The patient was instructed to perform monthly self-breast exams and schedule annual exam in a year. All questions answered and the patient verbalized understanding. (2) Vaginal odor: Code(s): N89.8 - Other specified noninflammatory disorders of vagina Category: Medical Plan: GC/CT with BV panel collected will check the results and treat accordingly. Instructions given to patient to call in case symptoms recur. Orders: Orders MM tomosynthesis screening BI Today Z12.31 - Encounter for screening mammogram for malignant neoplasm of breast Coding Level of Care Code Est Pt Prev Care 40-64y(20129) Diagnoses Well woman exam Z01.419 Vaginal odor N89.8
[2024-05-19 14:37] VITALS: BP 132/74; BMI 24.9
--- OUTSIDE RECORDS SUMMARY | 2024-05-19 18:14 | XMS_ITS | Encounter Summary ---
Author Organization [employer] Address [address] [place] [address] 7 [place] [address] Care Team Providers Care Shop Manager Name Role Phone Unavailable Primary Care Provider Unavailabl e Reason for Visit * Reason Comments Med Refill Encounter Details Date Type Department Care Team (Late st Contact Info) Description 02/19/2023 Refill [facility] ADULT DENTAL [address] [place], [place] [phone] Chente El DDS [address] [place] [address] Social History Tobacco Use Types Packs/Day Years [...]
--- OUTSIDE RECORDS SUMMARY | 2024-05-19 18:14 | XMS_ITS | Clinical Summary ---
Author Organization [employer] Address [address] [facility] [address]t [place] [address] Care Team Providers Care Business Process Specialist Name Role Phone Unavailable Primary Care Provider [...] Most Recently Relevant to Health Maintenance Insurance DENTAL-[facility] MEDICAID STAND ADULT
== END 2024-05-19 15:21 | disposition home or self-care (01) ==
LOC: HO.HWS 14:27
PROVIDERS: PCP Internal Medicine; Visit Provider Obstetrics & Gynecology
DX: Z01.419 Encounter for gynecological examination (general) (routine) without abnormal findings (principal); N89.8 Other specified noninflammatory disorders of vagina
CPT/HCPCS: 99396; 99459

== ENCOUNTER 2024-05-19 14:27 | Outpatient (REF) | payer OTHER, MEDICAID, SELFPAY ==
--- OUTSIDE RECORDS SUMMARY | 2024-05-19 18:49 | XMS_ITS | Encounter Summary ---
Author Organization [employer] Address [address] [place] [address] 7 [place] [address] Care Team Providers Care Manager Beauty Name Role Phone Unavailable Primary Care Provider Unavailabl e Reason for Visit * Reason Comments Med Refill Encounter Details Date Type Department Care Team (Late st Contact Info) Description 02/19/2023 Refill [facility] [address] [place], [place] [phone] Chente El DDS [address] [place] [address] Social History Tobacco Use Types Packs/Day Years [...]
--- OUTSIDE RECORDS SUMMARY | 2024-05-19 18:49 | XMS_ITS | Clinical Summary ---
Author Organization [employer] Address [address] [facility] [address]t [place] [address] Care Team Providers Care Process Trainer Name Role Phone Unavailable Primary Care Provider [...] Most Recently Relevant to Health Maintenance Insurance DENTAL-[facility] MEDICAID STAND ADULT
[2024-05-20 11:52] LABS: CT PCR NOT DETECTED (Not Detect.); NG PCR NOT DETECTED (Not Detect.)
[2024-05-20 14:52] LABS: Bacterial Vaginosis PCR NEGATIVE (Negative); Candida Group PCR NOT DETECTED (Not Detect); Candida glab krusei PCR NOT DETECTED (Not Detect); Trichomonas vaginalis PCR NOT DETECTED (Not Detect)
== END 2024-05-19 14:28 | disposition home or self-care (01) ==
LOC: HO.LNP 14:27
PROVIDERS: PCP Internal Medicine; Visit Provider Obstetrics & Gynecology
DX: Z01.419 Encounter for gynecological examination (general) (routine) without abnormal findings (principal); N89.8 Other specified noninflammatory disorders of vagina; Z78.0 Asymptomatic menopausal state
CPT/HCPCS: 81515; 87491; 87591

== ENCOUNTER 2024-07-02 14:34 | Outpatient (REF) | payer OTHER, MEDICAID, SELFPAY ==
[2024-07-02 16:16] LABS: MANUAL DIFF FLAG NO
[2024-07-02 16:21] LABS: Appearance Urine Clear; Color Urine Yellow; Glucose Urine UA Negative (Negative); Leukocyte Esterase Urine Moderate (2+) (Negative); Nitrite Urine Negative (Negative); PH 7.5 (5.0-9.0); UMIC TRIGGER UACC YES; Urine Blood Negative (Negative); Urine Ketones Negative (Negative); Urine Protein Negative (Neg-Trace)
[2024-07-02 16:24] LABS: Bacteria Urine None Seen (None Seen); Hyaline Casts Urine 0-2 /LPF (0-2); RBC Urine 0-2 /HPF (0-2); UACC Culture Trigger YES
[2024-07-02 17:19] LABS: Basophils Absolute Auto 0.1 X10*3/uL (0.0-0.2); Basophils Percent Auto 1.5 % (0-2); Eosinophils Absolute Auto 0.2 X10*3/uL (0.0-0.4); Hematocrit 34.1 % (37.0-47.0); Hemoglobin 11.9 g/dl (12.0-16.0); Imm Gran Abs Auto 0.01 X10*3/uL (0.00-0.03); Imm Gran Pct Auto 0.3 % (0.0-0.4); Lymphocytes Absolute Auto 1.8 X10*3/uL (1.2-4.9); Lymphocytes Percent Auto 45.5 % (20-40); Mean Corpuscular HGB Conc 34.9 g/dl (31.0-35.0); Mean Corpuscular Hemoglobin 30.7 pg (27.0-33.0); Mean Corpuscular Volume 88.1 fL (80.0-98.0); Mean Platelet Volume 9.7 fL (9.4-12.3); Monocytes Absolute Auto 0.5 X10*3/uL (0.1-1.2); Monocytes Percent Auto 11.8 % (2-11); Neutrophils Absolute Auto 1.5 x10*3/uL (2.0-8.3); Neutrophils Percent Auto 36.9 % (45-73); Platelet Count 309 X10*3/uL (160-400); Red Blood Count 3.87 X10*6/uL (4.20-5.50); Red Cell Distribution Width 12.3 % (11.0-16.0)
--- OUTSIDE RECORDS SUMMARY | 2024-07-02 17:33 | XMS_ITS | Encounter Summary ---
Author Organization [employer] Address [address] [place] [address] [address] [place] [address] Care Team Providers Care Child Support Specialist Name Role Phone Unavailable Primary Care Provider Unavailabl e Reason for Visit * Reason Comments Med Refill Encounter Details Date Type Department Care Team (Late st Contact Info) Description 02/19/[address] [facility] ADULT DENT[facility] [address] [place], [place] [phone] Chente El DDS [address] [place] [address] Social History Tobacco Use Types Packs/Day Years [...]
[2024-07-02 17:34] LABS: Folate 4.3 ng/mL (> or = 4.0); Vitamin B12 871 pg/mL (200-900)
--- OUTSIDE RECORDS SUMMARY | 2024-07-02 17:34 | XMS_ITS | Clinical Summary ---
Author Organization [employer] Address [address] [facility] 7t [place] [address] Care Team Providers Care Oracle Applications Analyst Name Role Phone Unavailable Primary Care Provider [...] Most Recently Relevant to Health Maintenance Insurance DENTAL-[facility] MEDICAID STAND ADULT
[2024-07-02 17:43] LABS: Alanine Aminotransferase 22 U/L (0-31); Albumin Level 4.1 g/dL (3.5-5.0); Anion Gap 10 (12-20); Aspartate Amino Transferase 31 U/L (5-31); Bilirubin Total 0.2 mg/dL (0.0-1.0); Blood Urea Nitrogen 9 mg/dL (9-16); Calcium 9.3 mg/dL (8.4-10.2); Carbon Dioxide 26 mmol/L (22-29); Chloride 102 mmol/L (96-108); Cholesterol 180 mg/dL (<200); Estimated Glomerular Filt Rate > 60; HDL Cholesterol 71 mg/dL (>40); LDL Cholesterol Calculated 81 mg/dL (<100); Potassium 3.8 mmol/L (3.3-5.1); Sodium 134 mmol/L (135-145); Triglycerides 142 mg/dL (<150)
[2024-07-02 17:52] LABS: Alkaline Phosphatase 70 U/L (39-117); Glucose Fasting 83 mg/dL (60-99)
[2024-07-02 18:07] LABS: TSH reflex Free T4 3.35 uIU/mL (0.32-4.0); Vitamin D 25-OH Total 56.6 ng/mL (>30)
== END 2024-07-02 14:35 | disposition home or self-care (01) ==
LOC: HO.HMGCLDS 14:34
PROVIDERS: PCP Internal Medicine; Visit Provider Internal Medicine
DX: D64.9 Anemia, unspecified (principal); E55.9 Vitamin D deficiency, unspecified; E78.00 Pure hypercholesterolemia, unspecified; E53.8 Deficiency of other specified B group vitamins; R30.0 Dysuria
CPT/HCPCS: 36415; 80053; 80061; 81001; 82306; 82607; 82746; 84443; 85025; 87086

== ENCOUNTER 2024-07-03 15:57 | Outpatient (REF) | payer OTHER, SELFPAY ==
--- OUTSIDE RECORDS SUMMARY | 2024-07-03 15:59 | XMS_ITS | Encounter Summary ---
Author Organization [employer] Address [address] [place] [address] [address] [place] [address] Care Team Providers Care Wool Sorter Name Role Phone Unavailable Primary Care Provider Unavailabl e Reason for Visit * Reason Comments Med Refill Encounter Details Date Type Department Care Team (Late st Contact Info) Description 02/19/2023 Refill [facility] ADULT DENT[facility] [address] [place], [place] [phone] Chente El DDS [address] [place] [address] Social History Tobacco Use Types Packs/Day Years [...]
--- OUTSIDE RECORDS SUMMARY | 2024-07-03 15:59 | XMS_ITS | Clinical Summary ---
Author Organization [employer] Address [address] [facility] 7t [place] [address] Care Team Providers Care State Director Name Role Phone Unavailable Primary Care Provider [...] Most Recently Relevant to Health Maintenance Insurance DENTAL-[facility] MEDICAID STAND ADULT
== END 2024-07-03 15:58 | disposition home or self-care (01) ==
LOC: HO.MAMMO 15:57
PROVIDERS: PCP Internal Medicine; Visit Provider Obstetrics & Gynecology
DX: Z12.31 Encounter for screening mammogram for malignant neoplasm of breast (principal)
CPT/HCPCS: 77063; 77067

== ENCOUNTER → 2024-07-03 16:01 | Outpatient (BNV) | payer OTHER, SELFPAY | PROVIDERS: PCP Internal Medicine; Visit Provider Internal Medicine | DX: Z12.31 Encounter for screening mammogram for malignant neoplasm of breast (principal) | CPT/HCPCS: 77063; 77067 ==

== ENCOUNTER 2024-11-02 13:01 | Outpatient (AMB) | payer OTHER, MEDICAID, SELFPAY ==
--- NOTE | 2024-11-02 13:08 | MHC.OFFVIS ---
Vital Signs 11/02/24 13:10 Height 5 ft 2 in Weight 132 lb 4.438 oz BMI 24.2 BP 124/53 L Blood Pressure Location Lt brachial Position Sitting Pulse 63 Intake Visit Reasons: Gerd, Barrets Intake Note: Akiko presents in the office as a follow up for GERD and Barretts. CC: She states that she is not having any concerns with reflux but the time of the day she has to take it bothers her. She is a little concerned of a possible UTI but she was not sure if that is something she should metnion here. 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 Avoid dietary triggers and late night snacking. Staying upright for minimum 3 hours after meals discussed with patient. Increase fluid intake and activity to promote better bowel motility. Patient will return to the office in 6 months. She will call us if she will have any GI concerning symptoms. Patient is agreeable to this plan and verbalizes understanding of instructions. She was given the opportunity to ask questions and all questions answered. TODAY'S VISIT Patient is here today for follow-up. Patient reports that she has been doing fairly well. Denies having any symptoms of acid reflux. Denies dyspepsia, dysphagia odynophagia. Diagnosed with Walker's on upper endoscopy. Patient reports that she sometimes forgets to take pantoprazole in the morning and takes it in the afternoon when she members. Patient reports that she is moving her bowels well without any issues. Denies melena, hematochezia, unintentional weight loss or ribbon like stools. Patient denies any GI concerning symptoms today. Patient reports she used to take omeprazole in the past always at night time ? 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 Father No problems noted. Other Mental health problem Substance abuse Social History Housing: House Alcohol intake: current Alcohol intake frequency: 0-2 drinks per day Alcohol type: wine Patient Tobacco Use Status: Former Tobacco user e-Cigarette/Vaping Use: Never Used Second Hand Smoke Exposure: Yes service: No Current occupational status: unemployed Cognitive needs: No Hearing needs: No Vision needs: No Female Reproductive History Menstrual Age of Menarche: 14 Physical Exam Vital Signs: BMI result Body Mass Index 24.2 Assessment & Plan Assessment & Plan (1) GERD without esophagitis: Code(s): K21.9 - Gastro-esophageal reflux disease without esophagitis Category: Medical (2) 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 She was encouraged to take it with her coffee in the morning. Continue avoiding dietary triggers in late night snacking. Staying upright for minimal 3 hours after meals discussed with patient. Patient will follow-up in 1 year, sooner on as needed basis. She is agreeable to this plan and verbalizes understanding of instructions. She was given the opportunity to ask questions and all questions answered. Thank you for allowing me to participate in her care s Coding Level of Care Code Est Pt Level 3 (80966) Diagnoses GERD without esophagitis K21.9 Walker's esophagus without dysplasia K22.70 Time Spent (min) 25 Comment 15 minutes spent with patient and additional 10 minutes spent reviewing her records
[2024-11-02 13:10] VITALS: BP 124/53; PULSE 63; BMI 24.2
--- OUTSIDE RECORDS SUMMARY | 2024-11-02 13:54 | XMS_ITS | Encounter Summary ---
Author Organization [employer] Address [address] [place] [address] 7 [place] [address] Care Team Providers Care Consultant Electronics Name Role Phone Unavailable Primary Care Provider Unavailabl e Reason for Visit * Reason Comments Med Refill Encounter Details Date Type Department Care Team (Late st Contact Info) Description 02/19/2023 Refill [facility] ADULT DENT[facility] [address] [place], [place] [phone] Chente El DDS [address] [place] [address] Social History Tobacco Use Types Packs/Day Years [...]
== END 2024-11-02 13:23 | disposition home or self-care (01) ==
LOC: HO.HGI 13:01
PROVIDERS: PCP Internal Medicine; Visit Provider Nurse Practitioner Family
DX: K21.9 Gastro-esophageal reflux disease without esophagitis (principal); K22.70 Barrett's esophagus without dysplasia
CPT/HCPCS: 99213

== ENCOUNTER 2024-11-04 13:02 | Outpatient (AMB) | payer OTHER, SELFPAY ==
[2024-11-04 13:09] VITALS: BP 118/72; PULSE 82; RESP 16; TEMP 36.3; O2SAT 98; BMI 24.7
--- NOTE | 2024-11-04 13:09 | A.OFFPC_ITS ---
Vital Signs 11/04/24 13:09 Height 5 ft 2 in Weight 135 lb 4 oz BMI 24.7 BP 118/72 Blood Pressure Location Lt brachial Position Sitting Respiration 16 Pulse 82 Pulse Source Pulse Oximeter Temp 97.3 F Temp Source Temporal Artery Scan Pulse Oximetry (%) 98 Oxygen Delivery Method Room Air Intake Visit Reasons: 4 month f/u Allergies Sulfa (Sulfonamide Antibiotics) Allergy (Intermediate, Verified 11/04/24 13:51) rash Ceftin Allergy (Unknown, Verified 11/04/24 13:51) unknown SANGITA Inhibitors (SANGITA INHIBITORS) Adverse Reaction (Intermediate, Verified 11/04/24 13:51) COUGH atorvastatin (Lipitor) Adverse Reaction (Intermediate, Verified 11/04/24 13:51) elevated liver enzymes Medication List - Last Reconciled 11/04/24 by Zeb [place] MD albuterol sulfate 90 mcg/actuation 2 puffs inhalation Q6H PRN albuterol sulfate 2.5 mg (3 mL) inhalation QID PRN 30 days amlodipine 2.5 mg PO DAILY buspirone 10 mg PO ONCE cetirizine 10 mg PO DAILY cyanocobalamin (vitamin B-12) 1,000 mcg PO DAILY 90 days hydrochlorothiazide 12.5 mg PO DAILY 90 days losartan 100 mg PO DAILY 90 days montelukast 10 mg PO DAILY nadolol 20 mg PO BEDTIME 90 days pantoprazole 40 mg PO QAM pregabalin 75 mg PO BID rosuvastatin 5 mg PO DAILY 90 days sumatriptan succinate 50 mg PO Q2-4H PRN 30 days topiramate 50 mg PO BID trazodone 50 mg PO BEDTIME PRN 30 days Trelegy Ellipta 100-62.5-25 mcg (jtcgifelwpg-ynnyirizj-xeolvujl) 1 inh inhalation DAILY NS venlafaxine ER 150 mg PO DAILY 90 days Tobacco use date assessed: 11/04/24 Dental Screening Dental Screen Date: 11/04/24 Did you have a dental visit in the last 12 months?: Yes Did you have a dental problem in the last 6 months where you did not have access to dental care?: No Was dental information given to patient?: Patient has dentist HPI 4 month f/u HPI Details Patient comes in today for her follow up visit - she was last seen by me on 11/22/2023 [facility] Medical History Tubular adenoma of colon 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 Father No problems noted. Other Mental health problem Substance abuse Social History Housing: House Alcohol intake: current Alcohol intake frequency: 0-2 drinks per day Alcohol type: wine Patient Tobacco Use Status: Former Tobacco user e-Cigarette/Vaping Use: Never Used Second Hand Smoke Exposure: Yes service: No Current occupational status: unemployed Cognitive needs: No Hearing needs: No Vision needs: No Female Reproductive History Menstrual Age of Menarche: 14 Questionnaire PHQ-9 Over the last 2 weeks, how often have you been bothered by any of the following problems? 1. Little interest or pleasure in doing things: several days 2. Feeling down, depressed, or hopeless: several days 3. Trouble falling or staying asleep, or sleeping too much: nearly every day 4. Feeling tired or having little energy: more than half the days 5. Poor appetite or overeating: not at all 6. Feeling bad about yourself - or that you are a failure or have let yourself or your family down: several days 7. Trouble concentrating on things, such as reading the newspaper or watching television: several days 8. Moving or speaking so slowly that other people could have noticed. Or the opposite - being so fidgety or restless that you have been moving around a lot more than usual: several days 9. Thoughts that you would be better off or of hurting yourself in some way: not at all Total score: 10 Depression Screening Interpretation: Positive Depression Screening Done: Yes 06539 - PHQ-9 Billing: Yes Source: Developed by Drs. Santos Florentino, Tammy Santos, Jigar Giraldo and colleagues, with an educational chacho from [employer]. Thrive Questionnaire Date Thrive assessed: 11/04/24 I am a: Patient What is your living situation today?: I have a place to live, but I am worried about losing it in the future Within the past 12 months, did the food you bought not last and you didn't have the money to get more?: Never true Within the past 12 months, did you worry whether your food would run out before you got money to buy more?: Sometimes True Do you have trouble paying for medicines?: I choose not to answer this question Do you have trouble getting transportation to medical appointments?: No Do you have trouble paying your heating and electricity bill?: No Do you have trouble taking care of your child, family member or friend?: No Do you have trouble with day-to-day activities such as bathing, preparing meals, shopping, managing finances, etc.?: No Are you currently unemployed and looking for a job?: Yes Are you interested in more education?: No Please select the resources that you would like help with: None Currently or been in a relationship where the following occur: No concerns r eported THRIVE Score: 2 AUDIT C Alcohol Use Questionnaire (AUDIT-C) 1. How often do you have a drink containing alcohol?: 4 or more times a week 2. How many drinks containing alcohol do you have on a typical day when you are drinking?: 1 or 2 3. How often do you have six or more drinks on one occasion?: Never Total Score: 4 Score Reviewed/Action Taken: Yes CHANCE-7 AMB Questionnaire CHANCE-7 Date CHANCE - 7 assessed: 11/04/24 Feeling nervous, anxious, or on edge: 1 = Several days Not being able to stop or control worryin = Several days Worrying too much about different things: 1 = Several days Trouble relaxin = Several days Being so restless that it is hard to sit still: 1 = Several days Becoming easily annoyed or irritable: 0 = Not at all Feeling afraid as if something awful might happen: 1 = Several days Total CHANCE-7 score (0-4 normal; 5-9 mild; 10-14 moderate; 15-21 severe): 6 Source: Developed by Drs. Santos Florentino, Tammy Santos, Jigar Giraldo and colleagues, with an educational chacho from [employer]. CHANCE-7 Assessment Billing CHANCE-7 Assessment Tool: CHANCE-7 Assessment 25112 Physical exam (Primary Care) Vital Signs: Last Vital Signs Temp 97.3 F 11/04/24 13:09 Pulse 82 11/04/24 13:09 Resp 16 11/04/24 13:09 BP 118/72 11/04/24 13:09 Pulse Ox 98 11/04/24 13:09 Oxygen Delivery Method Room Air 11/04/24 13:09 BMI result Body Mass Index 24.7 Tobacco/Smoking Status: Tobacco use Status Tobacco use date assessed 11/04/24 11/04/24 13:22 Patient Tobacco Use Status Former Tobacco user 11/04/24 13:11 e-Cigarette/Vaping Use Never Used 11/04/24 13:11 PHQ-9: PHQ-9 Score PHQ-9: Total score 10 11/04/24 13:22 Depression Screening Interpretation: Positive Thrive Assessment: Date of Thrive Assessment Date Thrive assessed 11/04/24 11/04/24 13:22 Currently or been in a relationship where the following occur: No concerns reported Results AMB Urinalysis, Automated UA Leukoctes 500 Suraj/uL Last Edit by Felicia Arroyo CMA on 11/04/24 13:25 UA Nitrite Positive Last Edit by Felicia Arroyo CMA on 11/04/24 13:25 UA Urobilinogen 1 mg/dL Last Edit by Felicia Arroyo CMA on 11/04/24 13:25 UA Protein 300 mg/dL Last Edit by Felicia Arroyo CMA on 11/04/24 13:25 UA pH 7.0 Last Edit by Felicia Arroyo CMA on 11/04/24 13:25 UA Blood 200 Misbah/uL Last Edit by Felicia Arroyo CMA on 11/04/24 13:25 UA Specific [place] 1.010 Last Edit by Felicia Arroyo CMA on 11/04/24 13:25 UA Ketone Negative Last Edit by Felicia Arroyo CMA on 11/04/24 13:25 UA Bilirubin 0 mg/dL Last Edit by Felicia Arroyo CMA on 11/04/24 13:25 UA Glucose 0 mg/dL Last Edit by Felicia Arroyo CMA on 11/04/24 13:25 Results Reviewed Results Reviewed: Laboratory Last Values Urine pH (Auto) 7.0 11/04/24 13:13 Specific [place] (Auto) 1.010 11/04/24 13:13 Urine Protein (Auto) 300 mg/dL 11/04/24 13:13 Glucose (UA)(Auto) 0 mg/dL 11/04/24 13:13 Urine Ketones (Auto) Negative 11/04/24 13:13 Urine Blood (Auto) 200 Misbah/uL 11/04/24 13:13 Urine Nitrite (Auto) Positive 11/04/24 13:13 Urine Bilirubin (Auto) 0 mg/dL 11/04/24 13:13 Urine Urobilinogen (Auto) 1 mg/dL 11/04/24 13:13 Leukocyte Esterase (Auto) 500 Suraj/uL 11/04/24 13:13 Laboratory Tests 07/02/24 11/04/24 14:44 13:13 WBC 4.0 L Hgb 11.9 L Hct 34.1 L Plt Count 309 Sodium 134 L Potassium 3.8 Creatinine 0.67 Estimated GFR > 60 Fasting Glucose 83 Calcium 9.3 AST 31 ALT 22 Triglycerides 142 Cholesterol 180 LDL Cholesterol, Calc 81 HDL Cholesterol 71 Vitamin B12 871 25-OH Vitamin D Total 56.6 TSH 3.35 Specific [place] (Auto) 1.010 Urine Protein (Auto) 300 Glucose (UA)(Auto) 0 Urine Blood (Auto) 200 Urine Nitrite (Auto) Positive Leukocyte Esterase (Auto) 500 Coding Additional Codes CHANCE-7 Assessment Billing - CHANCE-7 Assessment Tool: CHANCE-7 Assessment 40032 ([id number]) PHQ-9 - 57728 - PHQ-9 Billing: Yes ([id number]) Assessment & Plan Assessment & Plan Orders: Orders AMB Urinalysis Automated Today R39.9 - Unspecified symptoms and signs involving the genitourinary system Urine Culture Today N39.0 - Urinary tract infection, site not specified Medications: New nitrofurantoin monohyd/m-cryst 100 mg (Macrobid) must administer with a meal/food 100 mg PO Q12H 14 caps 0RF 7 days Changed From trazodone 50 mg PO BEDTIME 30 days PRN 30 tabs 3RF sleep G47.00 - Inso mnia, unspecified To trazodone 100 mg PO BEDTIME PRN 30 tabs 3RF sleep 30 days G47.00 - Insomnia, unspecified
--- OUTSIDE RECORDS SUMMARY | 2024-11-04 13:56 | XMS_ITS | Encounter Summary ---
Author Organization [facility] Address [address] [place] [address] [address] [place] [address] Care Team Providers Care Liner Reroll Tender Name Role Phone Unavailable Primary Care Provider Unavailabl e Reason for Visit * Reason Comments Med Refill Encounter Details Date Type Department Care Team (Late st Contact Info) Description 02/19/2023 Refill [facility] [address], [place] [id number] Chente El DDS [address] [place] [address] Social History Tobacco Use Types Packs/Day Years [...]
== END 2024-11-04 14:02 | disposition home or self-care (01) ==
LOC: HO.HMCH 13:03
PROVIDERS: PCP Internal Medicine; Visit Provider Internal Medicine
DX: R39.9 Unspecified symptoms and signs involving the genitourinary system (principal)

== ENCOUNTER 2024-11-04 13:02 | Outpatient (REF) | payer OTHER, SELFPAY | END 2024-11-04 13:03 | disposition home or self-care (01) | LOC: HO.LNP 13:02 | PROVIDERS: PCP Internal Medicine; Visit Provider Internal Medicine | DX: E78.00 Pure hypercholesterolemia, unspecified (principal); I10 Essential (primary) hypertension; N39.0 Urinary tract infection, site not specified; J44.9 Chronic obstructive pulmonary disease, unspecified; M25.50 Pain in unspecified joint; J30.9 Allergic rhinitis, unspecified; K21.9 Gastro-esophageal reflux disease without esophagitis; K22.70 Barrett's esophagus without dysplasia; R79.89 Other specified abnormal findings of blood chemistry; E53.8 Deficiency of other specified B group vitamins; F41.9 Anxiety disorder, unspecified; F33.9 Major depressive disorder, recurrent, unspecified | CPT/HCPCS: 81003; 87086; 87088; 87186; 96127 ==

== ENCOUNTER 2025-03-08 13:12 | Outpatient (REF) | payer OTHER, MEDICAID, SELFPAY ==
[2025-03-08 16:03] LABS: MANUAL DIFF FLAG NO
[2025-03-08 16:07] LABS: Hematocrit 34.0 % (37.0-47.0); Hemoglobin 11.8 g/dl (12.0-16.0); Imm Gran Abs Auto 0.01 X10*3/uL (0.00-0.03); Imm Gran Pct Auto 0.2 % (0.0-0.4); Lymphocytes Absolute Auto 2.7 X10*3/uL (1.2-4.9); Mean Corpuscular HGB Conc 34.7 g/dl (31.0-35.0); Mean Corpuscular Hemoglobin 30.2 pg (27.0-33.0); Mean Corpuscular Volume 87.0 fL (80.0-98.0); NRBC Abs Auto 0.000 X10*3/uL (0.0-0.012); NRBC Pct Auto 0.0 /100WBC (0.0-0.2); Platelet Count 315 X10*3/uL (160-400); Red Blood Count 3.91 X10*6/uL (4.20-5.50); White Blood Count 5.4 X10*3/uL (4.8-10.8)
[2025-03-08 16:21] LABS: Appearance Urine Clear; Glucose Urine UA Negative (Negative); PH 8.0 (5.0-9.0); Specific Gravity - Urine 1.010 (1.005-1.025); UMIC TRIGGER UACC YES
--- OUTSIDE RECORDS SUMMARY | 2025-03-08 16:34 | XMS_ITS | Encounter Summary ---
Author Organization [employer] Address [address] [place] [address] [address] [place] [address] Care Team Providers Care Fisheries Biologist Name Role Phone Unavailable Primary Care Provider Unavailabl e Reason for Visit * Reason Comments Med Refill Encounter Details Date Type Department Care Team (Late st Contact Info) Description 02/19/2023 Refill [facility] [address], [place] [id number] Chente El DDS [address] [place] [address] Social History Tobacco Use Types Packs/Day Years [...]
--- OUTSIDE RECORDS SUMMARY | 2025-03-08 16:34 | XMS_ITS | Clinical Summary ---
Author Organization [employer] Address [address] [place] [address] Care Team Providers Care Registered Medical Transcriptionist Name Role Phone Unavailable Primary Care Provider [...] for up to 20 doses. 20 tablet 06/07/202 4 Active Active Problems Problem Noted Date [...] Panel 1964 SDOH Screening 1964 Sigmoidoscopy 1964 Disability Screening 1964 Alcohol/Substance Use Screening 1976 Hepatitis C Screening 1982 Pap Smear 1985 Cervical Cancer Screening 1994 HPV/Cotest 1994 Mammogram 2004 RSV Patients and Patients Aged 60 years or older (1 - Risk 50-74 years 1-dose series) 2014 Zoster Vaccines (1 of 2) 2014 Pneumococcal Vaccine: 50+ Years (2 of 2 - PCV) 09/06/2019 09/05/2018 Tobacco Screening 08/22/2024 08/23/2023 COVID-19 Vaccine ( season) 2024 06/26/2020, 06/04/2020 Influenza Vaccine (#1) 2024 , 01/16/2018, 02/20/2017, Additional history exists DTaP/Tdap/Td Vaccines (2 - Td or Tdap) [...] patient's age to complete this topic Meningococcal B Vaccine Aged Out No l onger eligible based on patient's age to complete [...] Most Recently Relevant to Health Maintenance Insurance [facility] MEDICAID STAND ADULT
[2025-03-08 16:53] LABS: Alanine Aminotransferase 21 U/L (0-31); Albumin Level 4.5 g/dL (3.5-5.0); Alkaline Phosphatase 75 U/L (39-117); Anion Gap 10 (12-20); Aspartate Amino Transferase 25 U/L (5-31); Blood Urea Nitrogen 10 mg/dL (9-16); Calcium 9.4 mg/dL (8.4-10.2); Carbon Dioxide 28 mmol/L (22-29); Chloride 97 mmol/L (96-108); Cholesterol 188 mg/dL (<200); Estimated Glomerular Filt Rate > 60; HDL Cholesterol 72 mg/dL (>40); Potassium 3.7 mmol/L (3.3-5.1); Sodium 131 mmol/L (135-145); Total Protein 7.1 g/dL (6.5-8.0); Triglycerides 188 mg/dL (<150)
[2025-03-08 17:12] LABS: UACC Culture Trigger YES
[2025-03-08 17:23] LABS: Free T4 (Free Thyroxine) 0.95 ng/dL (0.71-1.85)
== END 2025-03-08 13:13 | disposition home or self-care (01) ==
LOC: HO.HMGCLDS 13:12
PROVIDERS: PCP Internal Medicine; Visit Provider Internal Medicine
DX: E55.9 Vitamin D deficiency, unspecified (principal); D64.9 Anemia, unspecified; E78.00 Pure hypercholesterolemia, unspecified; Z13.31 Encounter for screening for depression; Z13.39 Encounter for screening examination for other mental health and behavioral disorders; Z13.9 Encounter for screening, unspecified
CPT/HCPCS: 36415; 80053; 80061; 81001; 82306; 84439; 84443; 85025; 87086; 96127

== ENCOUNTER 2025-03-08 15:04 | Outpatient (AMB) | payer OTHER, SELFPAY ==
[2025-03-08 15:12] VITALS: BP 102/68; PULSE 79; O2SAT 96; BMI 25.3
--- NOTE | 2025-03-08 15:12 | A.OFFPC_ITS ---
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: No Accompanied by: Self / Same As Patient Allergies Sulfa (Sulfonamide Antibiotics) Allergy (Intermediate, Verified 03/08/25 15:34) rash Ceftin Allergy (Unknown, Verified 03/08/25 15:34) unknown SANGITA Inhibitors (SANGITA INHIBITORS) Adverse Reaction (Intermediate, Verified 03/08/25 15:34) COUGH atorvastatin (Lipitor) Adverse Reaction (Intermediate, Verified 03/08/25 15:34) elevated liver enzymes Medication List - Last Reconciled 03/08/25 by Zeb Colorado MD albuterol sulfate 90 mcg/actuation 2 puffs inhalation Q6H PRN albuterol sulfate 2.5 mg (3 mL) inhalation QID PRN 30 days amlodipine 2.5 mg PO DAILY buspirone 10 mg PO ONCE cetirizine 10 mg PO DAILY cyanocobalamin (vitamin B-12) 1,000 mcg PO DAILY 90 days hydrochlorothiazide 12.5 mg PO DAILY 90 days losartan 100 mg PO DAILY 90 days montelukast 10 mg PO DAILY nadolol 20 mg PO BEDTIME 90 days pantoprazole 40 mg PO QAM pregabalin 75 mg PO BID rosuvastatin 5 mg PO DAILY 90 days sumatriptan succinate 50 mg PO Q2-4H PRN 30 days topiramate 50 mg PO DAILY 90 days trazodone 100 mg PO BEDTIME PRN 30 days Trelegy Ellipta 100-62.5-25 mcg (zaaussvltyn-dfaoyeoga-zyqwofie) 1 inh inhalation DAILY NS venlafaxine ER 150 mg PO DAILY 90 days Tobacco use date assessed: 03/08/25 Dental Screening Dental Screen Date: 03/08/25 Did you have a dental visit in the last 12 months?: Yes Did you have a dental problem in the last 6 months where you did not have access to dental care?: No Was dental information given to patient?: Patient has dentist HPI Annual PE HPI Details Patient is a 59-year-old female presenting for her annual physical examination She reports experiencing diarrhea, typically within 15 minutes of eating, which occurs almost every time she eats and is not associated with any specific food type. She also notes feeling constipated at times and experiencing significant gassiness that can feel like chest pressure. She has a known history of Walker's esophagus and takes Pantoprazole daily for acid reflux. Her last colonoscopy was in January of the previous year (2023), during which a precancerous polyp was removed, with a recommended surveillance interval of five years. Patient also experiences shortness of breath often when she is climbing stairs. She is prescribed a Trelegy inhaler but reports she is not using it as she should. Her blood pressure has been well-controlled on her current medication regimen. Adds that for the past 2-3 days, she has had some soreness in her right hand. Patient takes 11 prescribed medications daily, in addition to vitamins D and B, and an allergy pill, and feels overwhelmed by the number of pills she's had to take Her medications include pantoprazole, pregabalin, lisinopril, a triptan, Topamax, and Trelegy. She also has allergies to indoor dust and outdoor allergens and takes an allergy pill. 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 Father No problems noted. Other Mental health problem Substance abuse Social History (Reviewed 03/08/25 @ 15:14 by VLAD Spann Housing: House Alcohol intake: current Alcohol intake frequency: 0-2 drinks per day Alcohol type: wine Patient Tobacco Use Status: Former Tobacco user e-Cigarette/Vaping Use: Never Used Second Hand Smoke Exposure: Yes service: No Current occupational status: unemployed Cognitive needs: No Hearing needs: No Vision needs: No Female Reproductive History Menstrual Age of Menarche: 14 Questionnaire PHQ-9 Over the last 2 weeks, how often have you been bothered by any of the following problems? 1. Little interest or pleasure in doing things: several days 2. Feeling down, depressed, or hopeless: several days 3. Trouble falling or staying asleep, or sleeping too much: nearly every day 4. Feeling tired or having little energy: more than half the days 5. Poor appetite or overeating: not at all 6. Feeling bad about yourself - or that you are a failure or have let yourself or your family down: several days 7. Trouble concentrating on things, such as reading the newspaper or watching television: several days 8. Moving or speaking so slowly that other people could have noticed. Or the opposite - being so fidgety or restless that you have been moving around a lot more than usual: several days 9. Thoughts that you would be better off or of hurting yourself in some way: not at all Total score: 10 Depression Screening Interpretation: Positive Depression Screening Follow-up: Existing condition and In treatment Depression Screening Done: Yes 57816 - PHQ-9 Billing: Yes Source: Developed by Drs. Santos Florentino, Tammy Santos, Jigar Giraldo and colleagues, with an educational chacho from [employer] Thrive Questionnaire Date Thrive assessed: 03/08/25 What is your living situation today?: I have a place to live, but I am worried about losing it in the future Within the past 12 months, did the food you bought not last and you didn't have the money to get more?: Never true Within the past 12 months, did you worry whether your food would run out before you got money to buy more?: Sometimes True Do you have trouble paying for medicines?: I choose not to answer this question Do you have trouble getting transportation to medical appointments?: No Do you have trouble paying your heating and electricity bill?: No Do you have trouble taking care of your child, family member or friend?: No Do you have trouble with day-to-day activities such as bathing, preparing meals, shopping, managing finances, etc.?: No Are you currently unemployed and looking for a job?: Yes Are you interested in more education?: No Please select the resources that you would like help with: None Currently or been in a relationship where the following occur: No concerns reported THRIVE Score: 2 AUDIT C Alcohol Use Questionnaire (AUDIT-C) 1. How often do you have a drink containing alcohol?: 4 or more times a week 2. How many drinks containing alcohol do you have on a typical day when you are drinking?: 1 or 2 3. How often do you have six or more drinks on one occasion?: Never Total Score: 4 Score Reviewed/Action Taken: Yes CHANCE-7 AMB Questionnaire CHANCE-7 Date CHANCE - 7 assessed: 03/08/25 Feeling nervous, anxious, or on edge: 1 = Several days Not being able to stop or control worryin = Several days Worrying too much about different things: 1 = Several days Trouble relaxin = Several days Being so restless that it is hard to sit still: 1 = Several days Becoming easily annoyed or irritable: 0 = Not at all Feeling afraid as if something awful might happen: 1 = Several days Total CHANCE-7 score (0-4 normal; 5-9 mild; 10-14 moderate; 15-21 severe): 6 Source: Developed by Drs. Santos Florentino, Tammy Santos, Jigar Giraldo and colleagues, with an educational chacho from [employer] CHANCE-7 Assessment Billing CHANCE-7 Assessment Tool: CHANCE-7 Assessment 42146 Review of Systems Const Denies chills, Reports difficulty sleeping (states current Trazodone 50 mg not helping much), Reports fatigue, Denies fever(s) and Denies headache(s) Eyes Denies blurry vision, Denies change in vision, Denies irritation and Denies itchy eyes ENT Denies dysphagia, Denies dizziness, Denies otalgia, Denies headache(s), Denies neck pain, Denies odynophagia and Denies sore throat Card Denies chest pain, Denies rapid heart rate, Denies irregular heart rhythm, Denies palpitations and Reports dyspnea on exertion (mild) Resp Denies chest congestion, Reports cough (on and off, mostly non-productive), Denies pain with cough, Reports dyspnea on exertion (mild) and Denies wheezing GI Denies abdominal pain, Denies constipation, Denies dysphagia, Denies heartburn, Denies diarrhea, Denies nausea, Denies odynophagia and Denies vomiting Denies hematuria, Denies difficulty voiding, Reports dysuria (mild), Denies urinary incontinence and Reports urinary urgency Musc Denies back pain, Denies arthralgias and Denies neck pain Skin/Breast Denies rash Neuro Denies dizziness, Denies headache(s) and Denies paresthesias Psych Reports anxiety (increasing), Reports depression (increasing) and Denies suicidal ideation Endo Reports fatigue and Denies palpitations Anil/Lymph Denies easy bruising Aller/Immun Denies itchy eyes and Denies wheezing Physical exam (Primary Care) Vital Signs: Last Vital Signs Pulse 79 03/08/25 15:12 BP 102/68 03/08/25 15:12 Pulse Ox 96 03/08/25 15:12 Oxygen Delivery Method Room Air 03/08/25 15:12 BMI result Body Mass Index 25.3 Tobacco/Smoking Status: Tobacco use Status Tobacco use date assessed 03/08/25 03/08/25 15:20 Patient Tobacco Use Status Former Tobacco user 03/08/25 15:20 e-Cigarette/Vaping Use Never Used 03/08/25 15:20 PHQ-9: PHQ-9 Score PHQ-9: Total score 10 03/08/25 15:48 Depression Screening Interpretation: Positive Depression Screening Follow-up: Existing condition and In treatment Thrive Assessment: Date of Thrive Assessment Date Thrive assessed 03/08/25 03/08/25 15:20 Currently or been in a relationship where the following occur: No concerns reported Const General: no acute distress and alert Orientation/consciousness: patient oriented x3 HENMT Head: Yes normocephalic and Yes atraumatic Ears: TM's normal bilaterally and EAC's normal General nose exam: No nasal discharge present Face and sinus: Yes normal facial exam and Yes sinuses nontender Teeth and gingiva: dentition normal Throat: Yes posterior oropharynx normal and Yes tonsils normal (no TP congestion) Eyes Eyelids: Yes eyelids normal Conjunctivae: conjunctivae normal Pupils: Equal, round and reactive pupils present EOM: EOMs intact bilaterally Neck Neck: Yes supple and No lymphadenopathy Thyroid: Thyroid normal Resp Auscultation: no crackles, no rales, no wheezes and diminished lung sounds bilateral Cardio Rate: regular rate Rhythm: regular rhythm Heart sounds: no murmurs GI Palpation (GI): Soft to palpation and nontender Auscultation: normal bowel sounds General: Yes no CVA tenderness Back/Spine/Pelvis Back: no CVA tenderness Thoracic/Lumbar Spine: No lumbar spinal tenderness Skin Lesions: no lesions Rashes: no rashes Neuro General: patient oriented x3, moves all extremities, no focal motor deficits and CN's II-XI intact bilaterally Cranial nerves: Yes Equal, round and reactive pupils present Cognition (Neuro): normal cognition Gait exam (Neuro): Normal gait present Extrem General: Yes no clubbing, cyanosis or edema Coding Level of Care Code Est Pt Prev Care 40-64y(68685) Diagnoses Annual physical exam Z00.00 Pure hypercholesterolemia E78.00 Benign essential hypertension I10 Chronic obstructive pulmonary disease, unspecified COPD type J44.9 COPD type: unspecified COPD Migraine without status migrainosus, not intractable, unspecified migraine type G43.909 Migraine type: unspecified Status migrainosus presence: without status migrainosus Intractability: not intractable Polyarthralgia M25.50 Allergic rhinitis, unspecified seasonality, unspecified trigger J30.9 Allergic rhinitis trigger: unspecified Allergic rhinitis seasonality: unspecified GERD without esophagitis K21.9 Walker's esophagus without dysplasia K22.70 Elevated LFTs R79.89 Hyponatremia E87.1 Vitamin B12 deficiency E53.8 Insomnia, unspecified type G47.00 Insomnia type: unspecified Anxiety F41.9 Episode of recurrent major depressive disorder, unspecified depression episode severity F33.9 Depression Type: major depressive disorder Major depression recurrence: recurrent Active/Remission status: currently active Major depression episode severity: unspecified Additional Codes CHANCE-7 Assessment Billing - CHANCE-7 Assessment Tool: CHANCE-7 Assessment 21459 ([id number]) PHQ-9 - 48324 - PHQ-9 Billing: Yes ([id number]) Assessment & Plan Assessment & Plan (1) Annual physical exam: Code(s): Z00.00 - Encounter for general adult medical examination without abnormal findings Category: Medical Plan: Patient just had her follow up labs done a few minutes ago and her results are not yet available for review at this time Her last colonoscopy was in January 2024, during which a precancerous polyp was removed, with a recommended surveillance interval of five years (2028) Her annual mammogram was last done in June 2024 and she had her pap smear back in late [address] Harrell for her yearly gynecology exam (was last seen earlier this year - 2024) (2) Pure hypercholesterolemia: Code(s): E78.00 - Pure hypercholesterolemia, unspecified Category: Medical Plan: Her cholesterol levels appear to be at or near goal goal on her labs done back in June 2024 She just had her follow up labs done a few minutes ago - results are not yet available to review at this time Reinforced low-cholesterol diet Continue Rosuvastatin 5 mg QD Will recheck her labs and fasting lipids in 4 months for follow-up (3) Benign essential hypertension: Code(s): I10 - Essential (primary) hypertension Category: Medical Plan: Reinforced low sodium diet - goal is systolic BP of 120 to 130 mm or less Continue Amlodipine 2.5 mg QD, HCTZ 12.5 mg QD and Losartan 100 mg QD Neurology reportedly increased her Amlodipine to 5 mg QD when she was seen back in January 2023 but patient stayed on 2.5 mg QD and never went up on her dosage (4) COPD (chronic obstructive pulmonary disease): Comment: 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 Kalpesh Monge) at [facility] regularly for her COPD management (5) Migraine: Code(s): G43.909 - Migraine, unspecified, not intractable, without status migrainosus Category: Medical Qualifiers: Migraine type: unspecified Status migrainosus presence: without status migrainosus Intractability: not intractable Qualified Code(s): G43.909 - Migraine, unspecified, not intractable, without status migrainosus Plan: Continue Fioricet 50-325-40 mg TID PRN and Sumatriptan 50 mg PRN as instructed Her Nadolol 20 mg Q HS for HEBERT prophylaxis was switched to Topiramate 50 mg BID by neurology when she was seen back in January 2023 - patient states that her h eadaches have been better controlled since She has also continued taking her Nadolol 20 mg Q HS - can consider having her stop taking this later on She has also been advised that her previous labs have shown a low sodium level, which may be a side effect of her Topiramate BUT may also be due to her increased alcohol intake as she admits to drinking now 2 to 3 glasses of wine every night around that time Follow up with neurology as scheduled (6) Polyarthralgia: Code(s): M25.50 - Pain in unspecified joint Category: Medical Plan: Continue Lyrica 75 mg BID - patient has been mostly taking this QD only as she feels very sedated when taking it BID Follow up with [facility] as scheduled (7) Allergic rhinitis: Code(s): J30.9 - Allergic rhinitis, unspecified Category: Medical Qualifiers: Allergic rhinitis trigger: unspecified Allergic rhinitis seasonality: unspecified Qualified Code(s): J30.9 - Allergic rhinitis, unspecified Plan: Continue Cetirizine 10 mg QD PRN and Montelukast 10 mg Q PM (8) GERD without esophagitis: Code(s): K21.9 - Gastro-esophageal reflux disease without esophagitis Category: Medical Plan: Dietary restrictions reinforced Continue Pantoprazole 40 mg QD (9) Walker's esophagus without dysplasia: Code(s): K22.70 - Walker's esophagus without dysplasia Category: Medical Plan: Continue PPI Tx She was supposed to follow up with GI regularly for continuing surveillance but she has not seen GI since her last EGD by Dr. Cardoza back in 2013; was referred back to GI for follow up and consideration for repeat EGD at her last visit She was seen by GI back in January 2023 but they have requested pulmonary clearance first before scheduling her for her procedures due to her COPD (10) Elevated LFTs: Code(s): R79.89 - Other specified abnormal findings of blood chemistry Category: Medical Plan: Her LFTs have normalized on her most recent labs done back in June 2024 - were likely due to her regular alcohol intake at the time and she has been advised to cut back on her drinking Will continue to monitor her LFTs and labs regularly (11) Hyponatremia: Code(s): E87.1 - Hypo-osmolality and hyponatremia Category: Medical Plan: Her serum sodium was still slightly low at 134 on her most recent labs done back in June 2024 She has been advised that this was likely related to her frequent/regular alcohol intake - she admits to drinking 2 to 3 glasses of wine every night for a few months but has since cut down a lot on her drinking Will have her recheck her labs and sodium level in 4 months for follow up (12) Vitamin B12 deficiency: Code(s): E53.8 - Deficiency of other specified B group vitamins Category: Medical Plan: Continue Vitamin B12 1000 mcg QD (13) Insomnia: Code(s): G47.00 - Insomnia, unspecified Category: Medical Qualifiers: Insomnia type: unspecified Qualified Code(s): G47.00 - Insomnia, unspecified Plan: Sleep hygiene reinforced Continue Trazodone 100 mg Q HS PRN (14) Anxiety: Code(s): F41.9 - Anxiety disorder, unspecified Category: Medical Plan: Continue Buspirone 10 mg QD and Venlafaxine ER 150 mg QD (15) Depression: Code(s): F32.9 - Major depressive disorder, single episode, unspecified Category: Medical Qualifiers: Depression Type: major depressive disorder Major depression recurrence: recurrent Active/Remission status: currently active Major depression episode severity: unspecified Qualified Code(s): F33.9 - Major depressive disorder, recurrent, unspecified Plan: Continue Venlafaxine ER 150 mg QD Follow up with psychiatry as scheduled Plan Follow up in 4 months Orders: Orders Complete Blood Count Auto Diff 4 Months D64.9 - Anemia, unspecified Comprehensive [place]. Panel Fast 4 Months E78.00 - Pure hypercholesterolemia, unspecified Lipid Panel 4 Months E78.00 - Pure hypercholesterolemia, unspecified
== END 2025-03-08 15:53 | disposition home or self-care (01) ==
LOC: HO.HMCH 15:05
PROVIDERS: PCP Internal Medicine; Visit Provider Internal Medicine
DX: Z00.00 Encounter for general adult medical examination without abnormal findings (principal); E78.00 Pure hypercholesterolemia, unspecified; I10 Essential (primary) hypertension; J44.9 Chronic obstructive pulmonary disease, unspecified; G43.909 Migraine, unspecified, not intractable, without status migrainosus; M25.50 Pain in unspecified joint; J30.9 Allergic rhinitis, unspecified; K21.9 Gastro-esophageal reflux disease without esophagitis; K22.70 Barrett's esophagus without dysplasia; R79.89 Other specified abnormal findings of blood chemistry; E87.1 Hypo-osmolality and hyponatremia; E53.8 Deficiency of other specified B group vitamins; G47.00 Insomnia, unspecified; F41.9 Anxiety disorder, unspecified; F33.9 Major depressive disorder, recurrent, unspecified

== ENCOUNTER 2025-03-15 14:31 | Outpatient (AMB) | payer OTHER, SELFPAY ==
--- NOTE | 2025-03-15 14:34 | MHC.OFFVIS ---
Intake Visit Reasons: Follow up Allergies Sulfa (Sulfonamide Antibiotics) Allergy (Intermediate, Verified 03/15/25 14:38) rash Ceftin Allergy (Unknown, Verified 03/15/25 14:38) unknown SANGITA Inhibitors (SANGITA INHIBITORS) Adverse Reaction (Intermediate, Verified 03/15/25 14:38) COUGH atorvastatin (Lipitor) Adverse Reaction (Intermediate, Verified 03/15/25 14:38) elevated liver enzymes Medication List - Last Reconciled 03/15/25 by Lary Levine CNP albuterol sulfate 90 mcg/actuation 2 puffs inhalation Q6H PRN albuterol sulfate 2.5 mg (3 mL) inhalation QID PRN 30 days amlodipine 2.5 mg PO DAILY buspirone 10 mg PO ONCE cetirizine 10 mg PO DAILY cyanocobalamin (vitamin B-12) 1,000 mcg PO DAILY 90 days hydrochlorothiazide 12.5 mg PO DAILY 90 days losartan 100 mg PO DAILY 90 days montelukast 10 mg PO DAILY nadolol 20 mg PO BEDTIME 90 days pantoprazole 40 mg PO QAM pregabalin 75 mg PO BID rosuvastatin 5 mg PO DAILY 90 days sumatriptan succinate 50 mg PO Q2-4H PRN 30 days topiramate 50 mg PO DAILY 90 days trazodone 100 mg PO BEDTIME PRN 30 days Trelegy Ellipta 100-62.5-25 mcg ([id number]) 1 inh inhalation DAILY NS venlafaxine ER 150 mg PO DAILY 90 days HPI Comments Details: 59-year-old woman with hypertension, anxiety, depression, and migraines with and without aura that began in her 30s. She may have visual aura of blurred vision, black spots in her vision, and sometimes difficulty speaking. She has a family history of migraines in her mother and son. She was doing okay. Headaches were better with topiramate. Migraines happened about 2x/month, usually with aura of blurred vision. Sumatriptan as needed helps within 30 minutes. Sleep was so-so. She had some forgetfulness. She sometimes forgot what she was going to say or what she was going to do, and episodes of spacing out. For example, she knew her appointment today was for neurology, but when she arrived to hospital, she went to GI office instead. She reports falling and hitting head in 2022. She also reports history of PTSD, currently not working with therapist or psychiatrist. 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 Father No problems noted. Son Headache Other Mental health problem Substance abuse Social History Housing: House Alcohol intake: current Alcohol intake frequency: 0-2 drinks per day Alcohol type: wine Patient Tobacco Use Status: Former Tobacco user e-Cigarette/Vaping Use: Never Used Second Hand Smoke Exposure: Yes service: No Current occupational status: unemployed Cognitive needs: No Hearing needs: No Vision needs: No Female Reproductive History Menstrual Age of Menarche: 14 Review of Systems Const Denies chills, Denies daytime sleepiness, Reports difficulty sleeping, Reports fatigue, Denies fever(s), Denies frequent falls, Reports headache(s), Denies increased appetite, Denies poor appetite, Denies snoring, Denies weakness, Denies weight gain and Denies weight loss Eyes Denies loss of vision ENT Denies vertigo, Reports dizziness, Reports headache(s) and Reports neck pain Card Denies chest pain at rest, Denies chest pain with activity, Denies syncope, Denies leg edema, Denies palpitations, Denies dyspnea and Denies dyspnea on exertion Resp Denies cough, Denies dyspnea, Denies dyspnea on exertion and Denies snoring GI Denies abdominal pain, Denies constipation, Denies heartburn, Denies diarrhea and Denies nausea Denies urinary frequency, Denies urinary incontinence and Denies urinary urgency Musc Denies abnormal gait, Reports back pain, Reports myalgias, Denies arthralgias, Reports neck pain, Denies numbness and Denies tingling Neuro Denies abnormal gait, Denies vertigo, Reports dizziness, Denies syncope, Denies frequent falls, Reports headache(s), Denies lack of coordination, Denies loss of vision, Reports memory loss, Denies numbness, Denies Other visual disturbances, Denies restless legs, Denies seizure-like activity, Denies tingling, Denies paresthesias, Denies tremor(s) and Denies weakness Psych Reports anxiety, Reports depression, Denies auditory hallucinations, Reports memory loss and Denies visual hallucinations Endo Reports fatigue and Denies palpitations Physical Exam Const Other: General Appearance:? normal, in no acute distress. Heart:? S1, S2 normal, no murmurs. Lungs:? clear anteriorly and posteriorly. Musculoskeletal:? normal. Extremities:? no edema. Psych:? alert, oriented, cognitive function intact, cooperative with exam. Neuro Other: Abnormal Neurological Findings:?none.? Mental Status: alert and oriented X 3. Normal attention, orientation, memory, and affect. Cranial Nerves: Pupils are equal, round, and reactive to light. External ocular muscles are intact. Visual hamm are full, no ptosis. Face is symmetrical, no facial weakness or droop. Facial sensations are normal. Tongue protrudes in midline. Palate elevates symmetrically. Shoulder shrugging is normal. Motor Examination: Normal muscle tone, bulk and strength. No atrophy or fasciculations. No drift of the extended upper extremities. DTR 2+. Plantars are flexor. Sensory Exam: Normal light touch, temperature, pinprick, vibration, and joint-position sensations. Rhomberg sign is absent. Coordination: No ataxia. No titubation. Gait Exam: Within normal limits. Cerebellar Signs: Motmcp-dz-afep is okay. Extrapyramidal System: No tremor, rigidity with normal facial expressions. No bradykinesia. No bradyphrenia. Normal arm swing and posture. No propulsion or retropulsion. Speech: Normal. Assessment & Plan Assessment & Plan (1) Migraine with aura: Code(s): G43.109 - Migraine with aura, not intractable, without status migrainosus Category: Medical Qualifiers: Status migrainosus presence: without status migrainosus Intractability: not intractable Qualified Code(s): G43.109 - Migraine with aura, not intractable, without status migrainosus Plan: Continue topiramate 50mg 1 tablet daily. Continue sumatriptan 50mg 1 tablet as needed for migraine. (2) Encephalopathy: Code(s): G93.40 - Encephalopathy, unspecified Category: Medical Qualifiers: Encephalopathy type: unspecified encephalopathy Qualified Code(s): G93.40 - Encephalopathy, unspecified Plan: EEG ordered. Possibility of migraine equivalents or side effects of topiramate considered. Follow up in 3 months or sooner as needed. Orders: Orders EEG Routine Today G93.40 - Encephalopathy, unspecified Medications: New sumatriptan succinate take 1 tab at onset of headache; if no relief may repeat 1 tab after at least 2 hrs; PO 10 tabs 5RF 30 days Refilled topiramate 50 mg PO DAILY 90 tabs 1RF 90 days Discontinued sumatriptan succinate do not take more than 3 doses in 24 hours Discontinued Reason: Order 50 mg PO Q2-4H 30 days PRN 90 tabs 3RF migraine headache G43.909 - Migraine, unspecified, not intractable, without status migrainosus Coding Level of Care Code Est Pt Level 4 (61184) Diagnoses Migraine with aura and without status migrainosus, not intractable G43.109 Status migrainosus presence: without status migrainosus Intractability: not intractable Encephalopathy, unspecified type G93.40 Encephalopathy type: unspecified encephalopathy
--- OUTSIDE RECORDS SUMMARY | 2025-03-15 16:53 | XMS_ITS | Encounter Summary ---
Author Organization [employer] Address [address] [place] [address] [address] [place] [address] Care Team Providers Care Surgical Pathologist Name Role Phone Unavailable Primary Care Provider Unavailabl e Reason for Visit * Reason Comments Med Refill Encounter Details Date Type Department Care Team (Late st Contact Info) Description 02/19/2023 Refill [facility] [address] [place], [place] [phone] [facility] D[facility] [address] [place] [address] Social History Tobacco Use Types Packs/Day Years [...]
--- OUTSIDE RECORDS SUMMARY | 2025-03-15 16:53 | XMS_ITS | Clinical Summary ---
Author Organization [employer] Address [address] [facility] [address] [place] [address] Care Team Providers Care Glass Furnace Tender Name Role Phone Unavailable Primary Care [...] Most Recently Relevant to Health Maintenance Insurance [facility] MEDICAID STAND ADULT
== END 2025-03-15 15:04 | disposition home or self-care (01) ==
LOC: HO.HSM 14:32
PROVIDERS: PCP Internal Medicine; Visit Provider Registered Nurse
DX: G43.109 Migraine with aura, not intractable, without status migrainosus (principal); G93.40 Encephalopathy, unspecified
CPT/HCPCS: 99214